=== PATIENT | male | born 1950 | race Caucasian/White ===

== ENCOUNTER 2020-12-25 16:16 | Inpatient (IN) | payer OTHER, SELFPAY ==
[2020-12-25 16:25] VITALS: BP 163/55; PULSE 62; RESP 16; TEMP 36.6; O2SAT 97
--- NOTE | 2020-12-25 17:06 | ED.GENADUL_ITS ---
Discharge Plan Disposition Patient Disposition: [facility] INPATIENT Condition: Stable Discharge Details Clinical Impression: Acute cholecystitis Primary Care Provider: Chad Sotelo ED Provider: Oj Burr Vernalis Meds and New Rx's Prescriptions: No Action albuterol sulfate 8.5 GM HFA aerosol inhaler 2 puff Inhalation Q4H PRN PRNRF: 0 multivitamin [Daily Multi-Vitamin] 1 EACH tablet 1 tab PO DAILY RF: 0 diltiazem HCl 300 MG capsule,extended release 24 hr 420 mg PO DAILY RF: 0 ascorbic acid (vitamin C) [Vitamin C] 500 MG tablet 500 mg PO DAILY RF: 0 vitamin B complex [Vitamin B-100 Complex] 1 EACH tablet 1 tab PO DAILY RF: 0 losartan 100 MG tablet 100 mg PO DAILY RF: 0 aspirin [Aspir-81] 81 MG tablet,delayed release (DR/EC) 81 mg PO DAILY RF: 0 chlorthalidone 50 mg tablet 25 mg PO DAILY RF: 0 amiloride 5 mg tablet 5 mg PO DAILY RF: 0 doxazosin 8 mg tablet 8 mg PO .QHS RF: 0 PreserVision AREDS-2 250-90-40-1 mg Capsule 1 tab PO DAILY RF: 0 Cacium Magnesium Zinc W/D3 1 tab PO DAILY RF: 0 Super Beta Prostate Advanced 1 tab PO DAILY RF: 0 Super Fruits And Veggies 1 tab PO DAILY RF: 0 Medical Decision Making <Mary Vazquez NP - Last Filed: 12/25/20 23:16> Medical Records Medical records reviewed: Yes I reviewed the patient's medical records. Imaging Data Radiologic Study: Imaging: X-Ray Radiologist's impression: PROCEDURE INFORMATION: Exam: XR Complete Acute Abdomen Series Including Chest Exam date and time: 12/25/2020 5:06 PM Age: 70 years old Clinical indication: Abdominal pain TECHNIQUE: Imaging protocol: XR complete acute abdomen series, including 2 or more views of the abdomen and a single view chest. COMPARISON: CR CHEST 2 VIEWS PA,LAT 08/09/2017 3:41 PM FINDINGS: Tubes, catheters and devices: Stent graft noted. Lungs: Normal. No consolidation. Pleural spaces: Normal. No pleural effusions. No pneumothorax. Heart/Mediastinum: Normal. No cardiomegaly. Gastrointestinal tract: Normal. No bowel dilation. Intraperitoneal space: Normal. No free air. Bones/joints: Normal. No acute fracture. Soft tissues: Normal. IMPRESSION: No acute disease Dictated and Authenticated by: Julito Giron MD. Ordering:ROBERT Hernandez MD Lab Data Lab results reviewed: Yes I reviewed the patient's lab results. Lab results narrative: Laboratory Tests Range/Units 12/25/20 12/25/20 12/25/20 17:14 17:14 17:14 WBC (4.4-10.8) 10^3/uL 15.26 H RBC (4.36-5.78) 10^6/uL 4.73 Hgb (13.5-17.5) g/dL 14.6 Hct (40.0-50.0) % 43.8 MCV (80-95) fL 92.6 MCH (27.0-33.0) pg 30.9 MCHC (32.0-36.0) % 33.3 RDW (11.8-14.1) % 13.7 Plt Count (130-400) 10^3/uL 215 MPV (8.0-11.0) fL 9.0 Immature Gran % 0.5 Neutrophils % 90.0 Lymphocytes % 3.2 Monocytes % 5.8 Eosinophils % 0.2 Basophils % 0.3 Nucleated RBC % % 0 Absolute Neutrophils (1.2-6.7) 10^3/uL 13.73 H Absolute Lymphocytes (1.2-3.4) 10^3/uL 0.49 L Absolute Monocytes (0.1-0.8) 10^3/uL 0.89 H Absolute Eosinophils (0.0-0.7) 10^3/uL 0.03 Absolute Basophils (0.0-0.2) 10^3/uL 0.05 VBG Lactate (0.6-1.4) mmol/L 2.9 H* Sodium (136-145) mmol/L 136 Potassium (3.5-5.1) mmol/L 3.8 Chloride (98-107) mmol/L 98 Carbon Dioxide (21.0-32.0) mmol/L 25.5 Anion Gap (3-11) mmol/L 12.5 H BUN (7-18) mg/dL 22 H Creatinine (0.70-1.30) mg/dL 1.5 H Estimated GFR/1.73 m2 (mL/min/1.73m2) 46.13 Glucose (74-106) mg/dL 182 H Calcium (8.5-10.1) mg/dL 9.5 Magnesium (1.8-2.4) mg/dL 2.0 Total Bilirubin (0.2-1.0) mg/dL 1.0 AST (15-37) U/L 196 H ALT (16-63) U/L 161 H Alkaline Phosphatase (46-116) U/L 127 H Total Protein (6.4-8.2) g/dL 7.0 Albumin (3.4-5.0) g/dL 3.8 Lipase (73-393) U/L 62 Urine Color (Yellow) Urine Clarity (Clear) Urine pH (5-8) Ur Specific [place] (1.005-1.025) Urine Protein (Negative) mg/dL Urine Ketones (Negative) mg/dL Urine Blood (Negative) Urine Nitrite (Negative) Urine Bilirubin (Negative) Urine Urobilinogen (Up TO 0.2) EU/dL Ur Leukocyte Esterase (Negative) Urine Glucose (Negative) mg/dL Range/Units 12/25/20 20:35 WBC (4.4-10.8) 10^3/uL RBC (4.36-5.78) 10^6/uL Hgb (13.5-17.5) g/dL Hct (40.0-50.0) % MCV (80-95) fL MCH (27.0-33.0) pg MCHC (32.0-36.0) % RDW (11.8-14.1) % Plt Count (130-400) 10^3/uL MPV (8.0-11.0) fL Immature Gran % Neutrophils % Lymphocytes % Monocytes % Eosinophils % Basophils % Nucleated RBC % % Absolute Neutrophils (1.2-6.7) 10^3/uL Absolute Lymphocytes (1.2-3.4) 10^3/uL Absolute Monocytes (0.1-0.8) 10^3/uL Absolute Eosinophils (0.0-0.7) 10^3/uL Absolute Basophils (0.0-0.2) 10^3/uL VBG Lactate (0.6-1.4) mmol/L Sodium (136-145) mmol/L Potassium (3.5-5.1) mmol/L Chloride (98-107) mmol/L Carbon Dioxide (21.0-32.0) mmol/L Anion Gap (3-11) mmol/L BUN (7-18) mg/dL Creatinine (0.70-1.30) mg/dL Estimated GFR/1.73 m2 (mL/min/1.73m2) Glucose (74-106) mg/dL Calcium (8.5-10.1) mg/dL Magnesium (1.8-2.4) mg/dL Total Bilirubin (0.2-1.0) mg/dL AST (15-37) U/L ALT (16-63) U/L Alkaline Phosphatase (46-116) U/L Total Protein (6.4-8.2) g/dL Albumin (3.4-5.0) g/dL Lipase (73-393) U/L Urine Color (Yellow) Yellow Urine Clarity (Clear) Clear Urine pH (5-8) 7.0 Ur Specific [place] (1.005-1.025) 1.025 Urine Protein (Negative) mg/dL Negative Urine Ketones (Negative) mg/dL Negative Urine Blood (Negative) Negative Urine Nitrite (Negative) Negative Urine Bilirubin (Negative) Negative Urine Urobilinogen (Up TO 0.2) EU/dL 1.0 H Ur Leukocyte Esterase (Negative) Negative Urine Glucose (Negative) mg/dL Negative <Oj Burr MD - Last Filed: 12/26/20 00:24> Patient signed out to me pending callback from surgery. Patient had presented with abdominal pain and is found to have elevated white count as well as elevated LFTs in addition to evidence of acute cholecystitis on CT scan. He has remained hemodynamically stable and continues on fluid. He has had 1 dose of pain medication. He has been covered with IV Zosyn. I have been able to discuss the case with Dr. Peacock. Patient to be admitted to surgical service for further management. Lab Data Lab results reviewed: Yes I reviewed the patient's lab results. HPI <Mary Vazquez NP - Last Filed: 12/25/20 23:16> General Mode of arrival: ambulatory . Date/Time Provider Initiated Documentation: 12/25/20 17:00 . Limitations to Documentation: no limitations . Information obtained by: patient . HPI Narrative: onset today of right upper quad pain with abdominal distention. denies fever but reports some chills. has had symptoms in the past but not as severe that has gone away but today persists Related Data Home Medications Medication Instructions Recorded Confirmed albuterol sulfate 2 puff INHALATION Q4H PRN PRN 07/31/13 12/25/20 ascorbic acid (vitamin C) [Vitamin 500 mg PO DAILY 07/31/13 12/25/20 C] aspirin [Aspir 81] 81 mg PO DAILY 07/31/13 12/25/20 diltiazem HCl 420 mg PO DAILY 07/31/13 12/25/20 losartan 100 mg PO DAILY 07/31/13 12/25/20 multivitamin [Multi Vitamin Daily] 1 tab PO DAILY 07/31/13 12/25/20 vitamin B complex [Vitamin B-100 1 tab PO DAILY 07/31/13 12/25/20 Complex] Cacium Magnesium Zinc W/D3 1 tab PO DAILY 12/25/20 Super Beta Prostate Advanced 1 tab PO DAILY 12/25/20 Super Fruits And Veggies 1 tab PO DAILY 12/25/20 amiloride 5 mg PO DAILY 12/25/20 12/25/20 chlorthalidone 25 mg PO DAILY 12/25/20 12/25/20 doxazosin 8 mg PO .QHS 12/25/20 12/25/20 vit C,X-Sv-hwafe-lutein-zeaxan 1 tab PO DAILY 12/25/20 12/25/20 [PreserVision AREDS-2] Allergies Allergy/AdvReac Type Severity Reaction Status Date / Time No Known Allergies Allergy Unverified 12/25/20 16:34 General Stated Complaint: Abd Prob BARBARA: 3 Review of Systems <Mary Vazquez NP - Last Filed: 12/25/20 23:16> All systems reviewed & are unremarkable except as noted in HPI and below ENT Ears, Nose, Mouth, and Throat: Denies odynophagia Gastrointestinal Gastrointestinal: Reports abdominal pain, Denies melena, Reports bloating, Denies constipation, Denies heartburn, Denies diarrhea, Denies nausea, Denies odynophagia and Denies vomiting Genitourinary Genitourinary: Denies difficulty urinating PFSH <Mary Vazquez NP - Last Filed: 12/25/20 23:16> Social History Smoking/Tobacco Use Status: Former Tobacco Use Smoking risk assessment performed?: Yes Alcohol Intake: current Alcohol Intake frequency: 0-2 drinks per day Drug use: Daily Substance use type: marijuana Exam <Mary Vazquez NP - Last Filed: 12/25/20 23:16> Const General: cooperative and in distress moderate Nutritional Appearance: average body habitus Orientation: alert, awake and oriented x3 Chest Chest: normal inspection of the chest Resp Effort & Inspection: normal respiratory effort Auscultation: clear to auscultation bilaterally Cardio Rate: regular rate Rhythm: regular rhythm GI Inspection: distended Palpation: soft, no guarding and tender in the epigastrum and in the RUQ Skin General skin exam: no rashes or lesions noted Neuro General: patient alert, patient awake and patient oriented x3 Extrem General: normal to inspection and full ROM Course <Mary Vazquez NP - Last Filed: 12/25/20 23:16> Vital Signs Vital signs: Vital Signs Temperature 36.6 C 12/25/20 16:25 Pulse 62 12/25/20 16:25 Respiratory Rate 16 12/25/20 16:25 Blood Pressure 163/55 H 12/25/20 16:25 Pulse Oximetry 97 12/25/20 16:25 Temperature 36.6 C 12/25/20 16:25 Temperature Source Tympanic 12/25/20 16:25 Pulse 62 12/25/20 16:25 Respiratory Rate 16 12/25/20 16:25 Respiratory Effort Non-Labored 12/25/20 16:25 Blood Pressure 163/55 H 12/25/20 16:25 Blood Pressure Position Sitting 12/25/20 16:25 Pulse Oximetry 97 12/25/20 16:25 Oxygen Delivery Method Room Air 12/25/20 16:25 Oxygen Flow Rate 0 12/25/20 16:25 Pain Level 7 12/25/20 16:25 Sign Out <Mary Vazquez NP - Last Filed: 12/25/20 23:16> Sign Out Data: Sign Out Comment: awaiting surgeon call back for admission for acute cholecysitis Last updated by Mary Vazquez NP at 12/25/20 23:18
[2020-12-25 17:19] LABS: Abs Immature Grans 0.07 10^3/uL (0.0-0.06); Absolute Basophil Count 0.05 10^3/uL (0.0-0.2); Absolute Eosinophil Count 0.03 10^3/uL (0.0-0.7); Absolute Lymphocyte Count 0.49 10^3/uL (1.2-3.4); Basophils % 0.3; Eosinophils % 0.2; HCT 43.8 % (40.0-50.0); HGB 14.6 g/dL (13.5-17.5); Immature Grans % 0.5; Lymphocytes % 3.2; MCH 30.9 pg (27.0-33.0); MCHC 33.3 % (32.0-36.0); MCV 92.6 fL (80-95); Monocytes % 5.8; Nucleated RBC 0 %; Platelet Count 215 10^3/uL (130-400); RBC 4.73 10^6/uL (4.36-5.78); RDW 13.7 % (11.8-14.1); RDW-SD 47.2 fL; WBC 15.26 10^3/uL (4.4-10.8)
[2020-12-25] MEDS: ACETAMINOPHEN 1,000 MG/100 ML BTL 400 MG IVPB (17:19)
[2020-12-25] MEDS: Normal Saline 1,000 ML 1000 ML IV (17:19)
[2020-12-25 17:20] LABS: Absolute Monocyte Count 0.89 10^3/uL (0.1-0.8); Absolute Neutrophil Count 13.73 10^3/uL (1.2-6.7)
[2020-12-25 17:23] LABS: Lactate 2.9 mmol/L (0.6-1.4)
--- NOTE | 2020-12-25 17:54 | DI.RAD_ITS ---
Exam(s) XR ABD FLAT UPRIGHT PA CHEST CLINICAL HISTORY: abdominal pain. COMPARISON: CR CHEST 2 VIEWS PA,LAT from 08/09/2017 FINDINGS: LUNGS: Clear. No pleural abnormality seen. HEART: Normal. There is tortuosity of the thoracic aorta. Atherosclerosis. MEDIASTINUM: Normal. BOWEL GAS PATTERN: Nondistended bowel loops. No air-fluid levels seen. ABNORMAL COLLECTIONS OF AIR: No abnormal collection of air. No pneumoperitoneum. CALCIFICATIONS: Atherosclerosis. No radiopaque renal, ureteral, or bladder calcification. OTHER FINDINGS: There is an aorto bi-iliac stent graft within a distal abdominal aortic aneurysm. IMPRESSION: 1. Nonobstructive bowel gas pattern. 2. No acute pulmonary findings.
[2020-12-25 17:59] LABS: ALT 161 U/L (16-63); AST 196 U/L (15-37); Albumin 3.8 g/dL (3.4-5.0); Alkaline Phosphatase 127 U/L (46-116); Anion Gap 12.5 mmol/L (3-11); BUN 22 mg/dL (7-18); CO2 25.5 mmol/L (21.0-32.0); CREATININE 1.5 mg/dL (0.70-1.30); Calcium 9.5 mg/dL (8.5-10.1); Chloride 98 mmol/L (98-107); Estimated GFR 46.13 (mL/min/1.73m2); Glucose 182 mg/dL (74-106); Potassium 3.8 mmol/L (3.5-5.1); Sodium 136 mmol/L (136-145)
--- NOTE | 2020-12-25 18:18 | DI.VRAD_ITS ---
PROCEDURE INFORMATION: Exam: XR Complete Acute Abdomen Series Including Chest Exam date and time: 12/25/2020 5:06 PM Age: 70 years old Clinical indication: Abdominal pain TECHNIQUE: Imaging protocol: XR complete acute abdomen series, including 2 or more views of the abdomen and a single view chest. COMPARISON: CR CHEST 2 VIEWS PA,LAT 08/09/2017 3:41 PM FINDINGS: Tubes, catheters and devices: Stent graft noted. Lungs: Normal. No consolidation. Pleural spaces: Normal. No pleural effusions. No pneumothorax. Heart/Mediastinum: Normal. No cardiomegaly. Gastrointestinal tract: Normal. No bowel dilation. Intraperitoneal space: Normal. No free air. Bones/joints: Normal. No acute fracture. Soft tissues: Normal. IMPRESSION: No acute disease Dictated and Authenticated by: Julito Giron MD. Ordering:ROBERT Hernandez MD
[2020-12-25 18:34] LABS: Lipase 62 U/L (73-393)
[2020-12-25 18:41] VITALS: BP 175/78; PULSE 62; RESP 16; TEMP 37.3; O2SAT 96
--- NOTE | 2020-12-25 19:10 | DI.CT_ITS ---
Exam(s) CT ABDOMEN PELVIS WO EXAM: CT ABDOMEN PELVIS WO CLINICAL HISTORY: abdominal pain and distention. TECHNIQUE: Imaging Protocol: Axial computed tomography images with coronal and sagittal reformatted images were created and reviewed. COMPARISON: US ABDOMEN ULTRASOUND (P) from 02/15/2013 US ABDOMEN ULTRASOUND (P) from 02/15/2013 FINDINGS: ABDOMEN: Lung Bases: Emphysematous changes are seen in the lung bases. There is scarring in the lingula. Liver: Normal density. No measurable mass. Gallbladder and biliary tract: Cholelithiasis. There is dilatation of the extrahepatic bile duct. H yperdense material seen layering in the common bile duct. This may represent choledocholithiasis. T he gallbladder measures 4.8 cm in diameter. There also appears to be mild gallbladder wall thickening . Pancreas: Normal density, no abnormal calcifications or inflammatory process. Spleen: Normal. Kidneys: Left renal atrophy.There are calcifications in the heraclio which may represent nonobstructing s tones or vascular calcifications. There is a 2.3 cm hypodense lesion in the superior medial aspect o f the right kidney. It is incompletely imaged on this noncontrast examination. Follow-up ultrasound or contrast CT scan should be considered. Adrenal glands: There is a 1.8 cm hypodense left adrenal nodule. The right adrenal gland is unremark able. Lymph nodes: Within normal limits. Abdominal Aorta: There is an aorto bi-iliac stent graft within a [place] 5.5 cm infrarenal abdominal a ortic aneurysm. PELVIS: Bladder:Symmetric distention, no gross wall thickening. Bowel: No obstruction or bowel wall thickening. Appendix is unremarkable. There is diverticulosis of the colon but no evidence of acute diverticulitis. Peritoneal cavity: No ascites, collection or mesenteric inflammatory response. No free air. Reproductive organs: There is an enlarged prostate gland. Bones: Within normal limits. There is grade 1 pseudo spondylolisthesis of L4 on L5 and mild retrolist hesis of L5 on S1. Soft Tissues: Within normal limits. IMPRESSION: Findings suspicious for acute cholecystitis. Incidental Findings RADIATION DOSE DELIVERED: 790.48mGy.cm Total DLP DATA REPOSITORY: All CT scans at this facility are submitted to the National Radiology Data Registry (NRDR) Dose Index Registry (DIR) with the [employer] (ACR). RADIATION OPTIMIZATION: All CT scans at this facility use at least one of these dose optimization te chniques: automated exposure control; mA and/or kV adjustment per patient size (includes targeted exa ms where dose is matched to clinical indication); or iterative reconstruction.
--- NOTE | 2020-12-25 19:18 | DI.VRAD_ITS ---
PROCEDURE INFORMATION: Exam: CT Abdomen And Pelvis Without Contrast Exam date and time: 12/25/2020 6:29 PM Age: 70 years old Clinical indication: Other: Abdominal pain and distention TECHNIQUE: Imaging protocol: Computed tomography of the abdomen and pelvis without contrast. Radiation optimization: All CT scans at this facility use at least one of these dose optimization techniques: automated exposure control; mA and/or kV adjustment per patient size (includes targeted exams where dose is matched to clinical indication); or iterative reconstruction. COMPARISON: CR XR ABD FLAT UPRIGHT PA CHEST 12/25/2020 5:41 PM FINDINGS: Lungs: Mild atelectasis. Liver: Normal. No mass. Gallbladder and bile ducts: Gallbladder contains multiple stones. Mild gallbladder dilatation. Mild pericholecystic stranding. Mild gallbladder wall thickening suspected. Pancreas: Normal. No ductal dilation. Spleen: Normal. No splenomegaly. Adrenal glands: A low-density left adrenal nodule is seen compatible with a lipid rich adenoma. Kidneys and ureters: Bilateral renal hypodensities cannot be further characterized on this study. Calcifications in the bilateral kidneys are favored to be vascular. No hydronephrosis. Stomach and bowel: Sigmoid diverticulosis noted. Appendix: No evidence of appendicitis. Intraperitoneal space: Unremarkable. No free air. No significant fluid collection. Vasculature: Coronary artery calcifications. Aortic stent graft noted. Sac diameter is about 55 mm. Correlation with priors recommended. Lymph nodes: Unremarkable. No enlarged lymph nodes. Urinary bladder: Unremarkable as visualized. Reproductive: Mild prostatic enlargement. Bones/joints: Unremarkable. No acute fracture. Soft tissues: Unremarkable. IMPRESSION: Findings concerning for acute cholecystitis. Clinical correlation recommended. Ultrasound offered for diagnostic dilemma. Dictated and Authenticated by: Julito Giron MD. Ordering:ROBERT Hernandez MD
[2020-12-25 19:30] VITALS: PULSE 68; RESP 24; RESP 8; O2SAT 98
[2020-12-25] MEDS: Albuterol 2.5 MG/3 ML INH SOLN VIAL UPD (19:30)
[2020-12-25] MEDS: HYDROmorphone 2 MG/ML VIAL (20:29)
[2020-12-25] MEDS: Ondansetron 4 MG/2 ML VIAL IVP (20:30)
[2020-12-25] MEDS: PIPERACILLIN/TAZO 3.375 GM in Normal Saline 50 ML IVPB (20:30)
[2020-12-25 20:45] LABS: Bilirubin Negative (Negative); Blood Negative (Negative); Clarity Clear (Clear); Glucose Negative (Negative); Ketones Negative (Negative); Leukocyte Esterase Negative (Negative); Nitrite Negative (Negative); Specific Gravity 1.025 (1.005-1.025)
[2020-12-26 00:12] VITALS: BP 124/62; PULSE 79; RESP 20; TEMP 36.3; O2SAT 94
[2020-12-26] MEDS: Lactated Ringers 1,000 ML 125 ML IV ×3 (00:37→22:25)
--- NOTE | 2020-12-26 00:40 | HPE_ITS ---
Assessment and Plan Assessment and plan (1) Cholelithiasis and acute cholecystitis without obstruction: Status: Acute (2) H/O endovascular stent graft for abdominal aortic aneurysm: Status: Acute (3) Enlarged prostate: Status: Acute (4) Atelectasis: Status: Acute (5) Diverticula of colon: Status: Acute (6) Adrenal adenoma: Status: Acute (7) Former smoker: Status: Acute (8) Daily consumption of alcohol: Status: Acute (9) Cannabis use, uncomplicated: Status: Acute (10) HTN (hypertension): Status: Chronic PFSH Social History Smoking/Tobacco Use Status: Former Tobacco Use Smoking risk assessment performed?: Yes Alcohol Intake: current Alcohol Intake frequency: 0-2 drinks per day Drug use: Daily Substance use type: marijuana Meds Allergies and Home Medications Allergies Allergy/AdvReac Type Severity Reaction Status Date / Time No Known Allergies Allergy Unverified 12/25/20 16:34 Home Medications Medication Instructions Recorded Confirmed Type albuterol sulfate 2 puff INHALATION Q4H PRN PRN 07/31/13 12/25/20 History ascorbic acid (vitamin C) [Vitamin 500 mg PO DAILY 07/31/13 12/25/20 History C] aspirin [Aspir 81] 81 mg PO DAILY 07/31/13 12/25/20 History diltiazem HCl 420 mg PO DAILY 07/31/13 12/25/20 History losartan 100 mg PO DAILY 07/31/13 12/25/20 History multivitamin [Multi Vitamin Daily] 1 tab PO DAILY 07/31/13 12/25/20 History vitamin B complex [Vitamin B-100 1 tab PO DAILY 07/31/13 12/25/20 History Complex] Cacium Magnesium Zinc W/D3 1 tab PO DAILY 12/25/20 History Super Beta Prostate Advanced 1 tab PO DAILY 12/25/20 History Super Fruits And Veggies 1 tab PO DAILY 12/25/20 History amiloride 5 mg PO DAILY 12/25/20 12/25/20 History chlorthalidone 25 mg PO DAILY 12/25/20 12/25/20 History doxazosin 8 mg PO .QHS 12/25/20 12/25/20 History vit C,W-Xm-owqop-lutein-zeaxan 1 tab PO DAILY 12/25/20 12/25/20 History [PreserVision AREDS-2] Results Labs Result diagrams: 12/25/20 17:14 12/25/20 17:14 Labs: Laboratory Results - last 24 hr 12/25/20 12/25/20 12/25/20 17:14 17:14 17:14 WBC 15.26 H RBC 4.73 Hgb 14.6 Hct 43.8 MCV 92.6 MCH 30.9 MCHC 33.3 RDW 13.7 Plt Count 215 MPV 9.0 Immature Gran % 0.5 Neutrophils % 90.0 Lymphocytes % 3.2 Monocytes % 5.8 Eosinophils % 0.2 Basophils % 0.3 Nucleated RBC % 0 Absolute Neutrophils 13.73 H Absolute Lymphocytes 0.49 L Absolute Monocytes 0.89 H Absolute Eosinophils 0.03 Absolute Basophils 0.05 VBG Lactate 2.9 H* Sodium 136 Potassium 3.8 Chloride 98 Carbon Dioxide 25.5 Anion Gap 12.5 H BUN 22 H Creatinine 1.5 H Estimated GFR/1.73 m2 46.13 Glucose 182 H Calcium 9.5 Magnesium 2.0 Total Bilirubin 1.0 AST 196 H ALT 161 H Alkaline Phosphatase 127 H Total Protein 7.0 Albumin 3.8 Lipase 62 Urine Color Urine Clarity Urine pH Ur Specific [place] Urine Protein Urine Ketones Urine Blood Urine Nitrite Urine Bilirubin Urine Urobilinogen Ur Leukocyte Esterase Urine Glucose 12/25/20 20:35 WBC RBC Hgb Hct MCV MCH MCHC RDW Plt Count MPV Immature Gran % Neutrophils % Lymphocytes % Monocytes % Eosinophils % Basophils % Nucleated RBC % Absolute Neutrophils Absolute Lymphocytes Absolute Monocytes Absolute Eosinophils Absolute Basophils VBG Lactate Sodium Potassium Chloride Carbon Dioxide Anion Gap BUN Creatinine Estimated GFR/1.73 m2 Glucose Calcium Magnesium Total Bilirubin AST ALT Alkaline Phosphatase Total Protein Albumin Lipase Urine Color Yellow Urine Clarity Clear Urine pH 7.0 Ur Specific [place] 1.025 Urine Protein Negative Urine Ketones Negative Urine Blood Negative Urine Nitrite Negative Urine Bilirubin Negative Urine Urobilinogen 1.0 H Ur Leukocyte Esterase Negative Urine Glucose Negative Last Vital Signs Temp 36.3 C L 12/26/20 00:12 Pulse 79 12/26/20 00:12 Resp 20 12/26/20 00:12 BP 124/62 12/26/20 00:12 Pulse Ox 94 12/26/20 00:12
[2020-12-26] MEDS: HYDROmorphone 2 MG/ML VIAL 0.5 MG IVP ×2 (00:49→10:50)
[2020-12-26 01:14] LABS: Source Nasal/Nares
[2020-12-26 01:35] VITALS: BP 169/72; PULSE 87; RESP 18; TEMP 36; O2SAT 95
[2020-12-26 02:06] LABS: COVID-19 PCR Negative (Negative)
[2020-12-26] MEDS: Pantoprazole 40 MG VIAL IVP (02:37)
[2020-12-26] MEDS: MORPHine 10 MG/ML VIAL 2 MG IV (02:37)
[2020-12-26] MEDS: Doxazosin 2 MG TAB 8 MG PO (02:38)
[2020-12-26] MEDS: ACETAMINOPHEN 1,000 MG/100 ML BTL 400 MG IVPB ×2 (02:39→10:21)
[2020-12-26] MEDS: PIPERACILLIN/TAZO 3.375 GM in Normal Saline 50 ML IVPB ×2 (04:59→20:19)
[2020-12-26] MEDS: Normal Saline 500 ML 30 ML IV ×2 (05:00→20:19)
[2020-12-26 06:56] LABS: Abs Immature Grans 0.06 10^3/uL (0.0-0.06); Absolute Basophil Count 0.05 10^3/uL (0.0-0.2); Absolute Lymphocyte Count 0.44 10^3/uL (1.2-3.4); Basophils % 0.3; Eosinophils % 0.1; HCT 39.4 % (40.0-50.0); Immature Grans % 0.3; Lymphocytes % 2.5; MCH 30.8 pg (27.0-33.0); MCV 93.4 fL (80-95); MPV 9.3 fL (8.0-11.0); Neutrophils % 92.8; Nucleated RBC 0 %; Platelet Count 199 10^3/uL (130-400); RBC 4.22 10^6/uL (4.36-5.78); RDW 14.2 % (11.8-14.1); RDW-SD 48.2 fL; WBC 17.41 10^3/uL (4.4-10.8)
[2020-12-26 06:58] LABS: Absolute Eosinophil Count 0.02 10^3/uL (0.0-0.7); Absolute Neutrophil Count 16.16 10^3/uL (1.2-6.7)
[2020-12-26 07:10] LABS: INR 1.1 (0.9-1.1); Prothrombin Time 11.2 sec (9.3-11.0)
[2020-12-26 07:25] VITALS: BP 151/73; PULSE 83; RESP 20; TEMP 36.3; O2SAT 96
[2020-12-26 07:30] LABS: ALT 911 U/L (16-63); AST 661 U/L (15-37); Albumin 3.1 g/dL (3.4-5.0); Alkaline Phosphatase 206 U/L (46-116); Anion Gap 6.8 mmol/L (3-11); BUN 24 mg/dL (7-18); Bilirubin, Total 4.1 mg/dL (0.2-1.0); CO2 25.2 mmol/L (21.0-32.0); CREATININE 1.8 mg/dL (0.70-1.30); Calcium 8.5 mg/dL (8.5-10.1); Chloride 104 mmol/L (98-107); Estimated GFR 37.38 (mL/min/1.73m2); Glucose 129 mg/dL (74-106); Lipase 44 U/L (73-393); Potassium 4.4 mmol/L (3.5-5.1); Sodium 136 mmol/L (136-145); Total Protein 5.4 g/dL (6.4-8.2)
--- NOTE | 2020-12-26 08:15 | HPE_ITS ---
Date of Service Date of service: 12/26/20 Time of Service: 08:13 HPI: Patient is a 70-year-old male with a past medical history significant for hypertension, previous AAA repair, hx of renal cell carcinoma status post partial left nephrectomy, and adrenal adenoma whocame to the emergency department complaining of right upper quadrant pain nausea and dry heaving. Patient states he did have one prior episode years ago. Due to persistent pain he came in for evaluation. Basic laboratory studies revealed evidence of mild leukocytosis and slightly elevated LFT?s with a normal bilirubin. He underwent a CAT scan of the abdomen and pelvis revealing evidence of acute calculous cholecystitis with a distended, inflamed and stone-filled gallbladder. He was started on IV antibiotics and admitted to the hospital for lap felix. This morning he has developed hyberbilirubinemia with a conjugated level of 3.8. He will need to undergo ERCP prior to cholecystectomy. Assessment and Plan Assessment and plan (1) Choledocholithiasis with acute cholecystitis with obstruction: Status: Acute Assessment and plan: Patient with acute direct hyperbilirubinemia today, needs ERCP prior to cholecystectomy -Transfer for down and back ERCP at [facility] today -2D echo pending -Plan for lap felix in AM if labs improve and no evidence of pancreatitis -Continue IV antibiotics and IVF, PRN analgesia as written -Continue home meds (2) HTN (hypertension): Status: Chronic Qualifiers: Hypertension type: unspecified Qualified Code(s): I10 - Essential (primary) hypertension (3) Cannabis use, uncomplicated: Status: Acute (4) Daily consumption of alcohol: Status: Acute (5) Adrenal adenoma: Status: Acute Qualifiers: Laterality: left Qualified Code(s): D35.02 - Benign neoplasm of left adrenal gland (6) H/O endovascular stent graft for abdominal aortic aneurysm: Status: Acute Subjective Subjective Patient reports: afebrile; denies shortness of breath Interval history since last seen: Patient reports improvement in pain, but still sore. Reports nausea and persistent dry heaving. Exam Const General: cooperative, comfortable and no acute distress Orientation: alert, awake and oriented x3 Eyes Conjunctivae: conjunctivae normal Sclera: sclerae normal Resp Effort & Inspection: normal respiratory effort and no audible wheezes Cardio Rate: regular rate Rhythm: regular rhythm GI Inspection: normal to inspection and obesity Palpation: soft and tender in the RUQ Percussion: normal to percussion Skin General skin exam: no rashes or lesions noted Objective Last Vital Signs Temp 97.3 F L 12/26/20 07:25 Pulse 83 12/26/20 07:25 Resp 20 12/26/20 07:25 BP 151/73 H 12/26/20 07:25 Pulse Ox 96 12/26/20 07:25 Laboratory Results - last 24 hr 12/25/20 12/25/20 12/25/20 17:14 17:14 17:14 WBC 15.26 H RBC 4.73 Hgb 14.6 Hct 43.8 MCV 92.6 MCH 30.9 MCHC 33.3 RDW 13.7 Plt Count 215 MPV 9.0 Immature Gran % 0.5 Neutrophils % 90.0 Lymphocytes % 3.2 Monocytes % 5.8 Eosinophils % 0.2 Basophils % 0.3 Nucleated RBC % 0 Absolute Neutrophils 13.73 H Absolute Lymphocytes 0.49 L Absolute Monocytes 0.89 H Absolute Eosinophils 0.03 Absolute Basophils 0.05 PT INR VBG Lactate 2.9 H* Sodium 136 Potassium 3.8 Chloride 98 Carbon Dioxide 25.5 Anion Gap 12.5 H BUN 22 H Creatinine 1.5 H Estimated GFR/1.73 m2 46.13 Glucose 182 H Calcium 9.5 Magnesium 2.0 Total Bilirubin 1.0 AST 196 H ALT 161 H Alkaline Phosphatase 127 H C-Reactive Protein Total Protein 7.0 Albumin 3.8 Lipase 62 Urine Color Urine Clarity Urine pH Ur Specific [place] Urine Protein Urine Ketones Urine Blood Urine Nitrite Urine Bilirubin Urine Urobilinogen Ur Leukocyte Esterase Urine Glucose COVID-19 Source SARS-CoV-2 (PCR) 12/25/20 12/25/20 12/26/20 17:14 20:35 00:42 WBC RBC Hgb Hct MCV MCH MCHC RDW Plt Count MPV Immature Gran % Neutrophils % Lymphocytes % Monocytes % Eosinophils % Basophils % Nucleated RBC % Absolute Neutrophils Absolute Lymphocytes Absolute Monocytes Absolute Eosinophils Absolute Basophils PT INR VBG Lactate Sodium Potassium Chloride Carbon Dioxide Anion Gap BUN Creatinine Estimated GFR/1.73 m2 Glucose Calcium Magnesium Total Bilirubin AST ALT Alkaline Phosphatase C-Reactive Protein 0.20 Total Protein Albumin Lipase Urine Color Yellow Urine Clarity Clear Urine pH 7.0 Ur Specific [place] 1.025 Urine Protein Negative Urine Ketones Negative Urine Blood Negative Urine Nitrite Negative Urine Bilirubin Negative Urine Urobilinogen 1.0 H Ur Leukocyte Esterase Negative Urine Glucose Negative COVID-19 Source Nasal/Nares SARS-CoV-2 (PCR) Negative 12/26/20 12/26/20 12/26/20 06:46 06:46 06:46 WBC 17.41 H RBC 4.22 L Hgb 13.0 L Hct 39.4 L MCV 93.4 MCH 30.8 MCHC 33.0 RDW 14.2 H Plt Count 199 MPV 9.3 Immature Gran % 0.3 Neutrophils % 92.8 Lymphocytes % 2.5 Monocytes % 4.0 Eosinophils % 0.1 Basophils % 0.3 Nucleated RBC % 0 Absolute Neutrophils 16.16 H Absolute Lymphocytes 0.44 L Absolute Monocytes 0.70 Absolute Eosinophils 0.02 Absolute Basophils 0.05 PT 11.2 H INR 1.1 VBG Lactate Sodium 136 Potassium 4.4 Chloride 104 Carbon Dioxide 25.2 Anion Gap 6.8 BUN 24 H Creatinine 1.8 H Estimated GFR/1.73 m2 37.38 Glucose 129 H Calcium 8.5 Magnesium Total Bilirubin 4.1 H AST 661 H ALT 911 H Alkaline Phosphatase 206 H C-Reactive Protein Total Protein 5.4 L Albumin 3.1 L Lipase 44 Urine Color Urine Clarity Urine pH Ur Specific [place] Urine Protein Urine Ketones Urine Blood Urine Nitrite Urine Bilirubin Urine Urobilinogen Ur Leukocyte Esterase Urine Glucose COVID-19 Source SARS-CoV-2 (PCR) cc: Dictated by: Jory Stover DO Dictated: 0 12/26/20Time: 818 <Electronically signed by Jory Stover DO> Date: 12/26/20 1319 Date: Date: Transcribed Date: 12/26/20 Transcribed Time: 818By: CUBA This is privileged, confidential information, intended only for the provider named. Any use or distribution by any person other than this provider is strictly prohibited. If you receive this report in error, please notify us immediately at [phone] and return the original report to us at the address above. Thank you.
--- NOTE | 2020-12-26 08:19 | PGE_ITS ---
Date of Service Date of service: 12/26/20 Time of Service: 08:13 Assessment and Plan Assessment and plan (1) Choledocholithiasis with acute cholecystitis with obstruction: Status: Acute Assessment and plan: Patient with acute direct hyperbilirubinemia today, needs ERCP prior to cholecystectomy -Transfer for down and back ERCP at [facility] today -2D echo pending -Plan for lap felix in AM if labs improve and no evidence of pancreatitis -Continue IV antibiotics and IVF, PRN analgesia as written -Continue home meds (2) HTN (hypertension): Status: Chronic Qualifiers: Hypertension type: unspecified Qualified Code(s): I10 - Essential (primary) hypertension (3) Cannabis use, uncomplicated: Status: Acute (4) Daily consumption of alcohol: Status: Acute (5) Adrenal adenoma: Status: Acute Qualifiers: Laterality: left Qualified Code(s): D35.02 - Benign neoplasm of left adrenal gland (6) H/O endovascular stent graft for abdominal aortic aneurysm: Status: Acute Subjective Subjective Patient reports: afebrile; denies shortness of breath Interval history since last seen: Patient reports improvement in pain, but still sore. Reports nausea and persistent dry heaving. Exam Const General: cooperative, comfortable and no acute distress Orientation: alert, awake and oriented x3 Eyes Conjunctivae: conjunctivae normal Sclera: sclerae normal Resp Effort & Inspection: normal respiratory effort and no audible wheezes Cardio Rate: regular rate Rhythm: regular rhythm GI Inspection: normal to inspection and obesity Palpation: soft and tender in the RUQ Percussion: normal to percussion Skin General skin exam: no rashes or lesions noted Objective Last Vital Signs Temp 97.3 F L 12/26/20 07:25 Pulse 83 12/26/20 07:25 Resp 20 12/26/20 07:25 BP 151/73 H 12/26/20 07:25 Pulse Ox 96 12/26/20 07:25 Laboratory Results - last 24 hr 12/25/20 12/25/20 12/25/20 17:14 17:14 17:14 WBC 15.26 H RBC 4.73 Hgb 14.6 Hct 43.8 MCV 92.6 MCH 30.9 MCHC 33.3 RDW 13.7 Plt Count 215 MPV 9.0 Immature Gran % 0.5 Neutrophils % 90.0 Lymphocytes % 3.2 Monocytes % 5.8 Eosinophils % 0.2 Basophils % 0.3 Nucleated RBC % 0 Absolute Neutrophils 13.73 H Absolute Lymphocytes 0.49 L Absolute Monocytes 0.89 H Absolute Eosinophils 0.03 Absolute Basophils 0.05 PT INR VBG Lactate 2.9 H* Sodium 136 Potassium 3.8 Chloride 98 Carbon Dioxide 25.5 Anion Gap 12.5 H BUN 22 H Creatinine 1.5 H Estimated GFR/1.73 m2 46.13 Glucose 182 H Calcium 9.5 Magnesium 2.0 Total Bilirubin 1.0 AST 196 H ALT 161 H Alkaline Phosphatase 127 H C-Reactive Protein Total Protein 7.0 Albumin 3.8 Lipase 62 Urine Color Urine Clarity Urine pH Ur Specific [place] Urine Protein Urine Ketones Urine Blood Urine Nitrite Urine Bilirubin Urine Urobilinogen Ur Leukocyte Esterase Urine Glucose COVID-19 Source SARS-CoV-2 (PCR) 12/25/20 12/25/20 12/26/20 17:14 20:35 00:42 WBC RBC Hgb Hct MCV MCH MCHC RDW Plt Count MPV Immature Gran % Neutrophils % Lymphocytes % Monocytes % Eosinophils % Basophils % Nucleated RBC % Absolute Neutrophils Absolute Lymphocytes Absolute Monocytes Absolute Eosinophils Absolute Basophils PT INR VBG Lactate Sodium Potassium Chloride Carbon Dioxide Anion Gap BUN Creatinine Estimated GFR/1.73 m2 Glucose Calcium Magnesium Total Bilirubin AST ALT Alkaline Phosphatase C-Reactive Protein 0.20 Total Protein Albumin Lipase Urine Color Yellow Urine Clarity Clear Urine pH 7.0 Ur Specific [place] 1.025 Urine Protein Negative Urine Ketones Negative Urine Blood Negative Urine Nitrite Negative Urine Bilirubin Negative Urine Urobilinogen 1.0 H Ur Leukocyte Esterase Negative Urine Glucose Negative COVID-19 Source Nasal/Nares SARS-CoV-2 (PCR) Negative 12/26/20 12/26/20 12/26/20 06:46 06:46 06:46 WBC 17.41 H RBC 4.22 L Hgb 13.0 L Hct 39.4 L MCV 93.4 MCH 30.8 MCHC 33.0 RDW 14.2 H Plt Count 199 MPV 9.3 Immature Gran % 0.3 Neutrophils % 92.8 Lymphocytes % 2.5 Monocytes % 4.0 Eosinophils % 0.1 Basophils % 0.3 Nucleated RBC % 0 Absolute Neutrophils 16.16 H Absolute Lymphocytes 0.44 L Absolute Monocytes 0.70 Absolute Eosinophils 0.02 Absolute Basophils 0.05 PT 11.2 H INR 1.1 VBG Lactate Sodium 136 Potassium 4.4 Chloride 104 Carbon Dioxide 25.2 Anion Gap 6.8 BUN 24 H Creatinine 1.8 H Estimated GFR/1.73 m2 37.38 Glucose 129 H Calcium 8.5 Magnesium Total Bilirubin 4.1 H AST 661 H ALT 911 H Alkaline Phosphatase 206 H C-Reactive Protein Total Protein 5.4 L Albumin 3.1 L Lipase 44 Urine Color Urine Clarity Urine pH Ur Specific [place] Urine Protein Urine Ketones Urine Blood Urine Nitrite Urine Bilirubin Urine Urobilinogen Ur Leukocyte Esterase Urine Glucose COVID-19 Source SARS-CoV-2 (PCR)
[2020-12-26 08:29] LABS: Bilirubin, Direct 3.8 mg/dL (0.0-0.2)
[2020-12-26] MEDS: aMILoride HCL 5 MG TAB PO (08:37)
[2020-12-26] MEDS: dilTIAZem CD 180 MG CAPCR PO (08:37)
[2020-12-26] MEDS: dilTIAZem CD 120 MG CAPCR 240 MG PO (08:37)
[2020-12-26] MEDS: Normal Saline Flush 10 ML SYR IVP ×2 (08:37→10:50)
[2020-12-26] MEDS: Losartan 50 MG TAB 100 MG PO (08:37)
--- NOTE | 2020-12-26 08:56 | INITIAL_ITS ---
- If Service Date Differs Date of service: 12/26/20 Time of Service: 08:56 Care Management Initial Assess REASON FOR HOSPITALIZATION:: Acute Cholecystitis PAST MEDICAL HISTORY/PAST SURGICAL HISTORY:: Benign neoplasm of left adrenal gland, H/O endovascular stent graft for abdominal aortic aneurysm, Depression. Hypertension. Spinal stenosis. Renal cancer, 2012. Past history of nosebleeds. Retinal detachment. Partial renal resection. Back surgery. R etinal surgery, May 2014. He has chronic back pain.Adrenal adenoma: CURRENT FUNCTIONAL STATUS:: CM was unable to meet with patient. Hannah was transported [place] [facility] [place] down and back appointment for an ERCP, CM will continue to monitor. ADVANCE DIRECTIVES:: None on file Has patient been provided with info about the portal/API?: Yes Did the patient sign up for the portal?: No CODE STATUS:: Full Code INSURANCE COVERAGE / FINANCIAL ISSUES:: [facility] PRIMARY CARE PHYSICIAN:: Dr. Chad Sotelo POTENTIAL DISCHARGE NEEDS:: CM continues to support PATIENT/FAMILY EDUCATION NEEDS:: Review of discharge instructions and plans for follow up with outpatient providers, ask me three TRANSPORTATION:: TBD by disposition. PLAN:: To complete assessment when patient is available.
--- NOTE | 2020-12-26 15:31 | NUR.NOTE ---
Nursing Note: 12/26/20 15:31 [id number] handoff given to radiology tech at [facility] for patient's transfer for [id number] procedure.
--- NOTE | 2020-12-26 16:05 | NUR.NOTE ---
Nursing Note: 12/26/20 14:05 Reanna RN, [place] [facility] [place] called and informed this RN that the patient will be admitted [place] [facility] [place] and will not be returning to [facility].
--- NOTE | 2020-12-26 17:05 | NUR.NOTE ---
Nursing Note: 12/26/20 17:05 Reanna RN, from [facility] [place]ology called again and reported that the patient will be transferred back to [facility] and is not being admitted at [facility]. Reanna reported they sent [place] away thinking the patient would be admitted at [facility], and the patient now needs new transport set up to return to [facility]. Charge nurse, Gila, notified. Reanna is in radiology at [phone].
[2020-12-26 20:30] VITALS: BP 122/68; PULSE 86; RESP 16; TEMP 36.1; O2SAT 96
--- NOTE | 2020-12-26 23:00 | NUR.NOTE ---
Patient returned from [facility] with EMS after having ERCP done. He is conscious, alert and oriented x 3. Denies having any pain or discomfort. Vitals signs done and charted. Continual assessment done through shift
[2020-12-26 23:45] VITALS: BP 122/70; PULSE 90; RESP 16; TEMP 36.8; O2SAT 92
[2020-12-27] MEDS: Pantoprazole 40 MG VIAL IVP (02:06)
[2020-12-27] MEDS: Normal Saline Flush 10 ML SYR IVP ×5 (02:07→21:41)
[2020-12-27] MEDS: ACETAMINOPHEN 1,000 MG/100 ML BTL 400 MG IVPB ×3 (02:07→17:38)
[2020-12-27] MEDS: PIPERACILLIN/TAZO 3.375 GM in Normal Saline 50 ML IVPB ×3 (04:45→21:40)
[2020-12-27] MEDS: Albuterol HFA 8 GM 60 PUFF INH IH (05:00)
[2020-12-27] MEDS: Lactated Ringers 1,000 ML 125 ML IV ×2 (07:11→15:23)
[2020-12-27 07:15] LABS: Abs Immature Grans 0.06 10^3/uL (0.0-0.06); Absolute Basophil Count 0.02 10^3/uL (0.0-0.2); Absolute Eosinophil Count 0.01 10^3/uL (0.0-0.7); Absolute Monocyte Count 0.46 10^3/uL (0.1-0.8); Basophils % 0.2; Eosinophils % 0.1; HCT 37.8 % (40.0-50.0); HGB 12.6 g/dL (13.5-17.5); Immature Grans % 0.5; Lymphocytes % 2.7; MCH 30.5 pg (27.0-33.0); MCHC 33.3 % (32.0-36.0); MCV 91.5 fL (80-95); MPV 10.1 fL (8.0-11.0); Monocytes % 4.2; Neutrophils % 92.3; Nucleated RBC 0 %; Platelet Count 166 10^3/uL (130-400); RBC 4.13 10^6/uL (4.36-5.78); RDW 14.7 % (11.8-14.1); RDW-SD 49.9 fL; WBC 11.05 10^3/uL (4.4-10.8)
[2020-12-27 07:26] LABS: INR 1.4 (0.9-1.1); Prothrombin Time 13.8 sec (9.3-11.0)
[2020-12-27 07:32] VITALS: BP 177/71; PULSE 104; RESP 18; TEMP 37.4; O2SAT 96
[2020-12-27 07:35] LABS: ALT 587 U/L (16-63); AST 215 U/L (15-37); Albumin 2.7 g/dL (3.4-5.0); Alkaline Phosphatase 171 U/L (46-116); Anion Gap 10.4 mmol/L (3-11); BUN 28 mg/dL (7-18); Bilirubin, Direct 1.5 mg/dL (0.0-0.2); Bilirubin, Total 1.9 mg/dL (0.2-1.0); CO2 24.6 mmol/L (21.0-32.0); CREATININE 1.6 mg/dL (0.70-1.30); Calcium 8.5 mg/dL (8.5-10.1); Chloride 102 mmol/L (98-107); Estimated GFR 42.82 (mL/min/1.73m2); Glucose 104 mg/dL (74-106); Lipase 31 U/L (73-393); Magnesium 1.8 mg/dL (1.8-2.4); Potassium 3.7 mmol/L (3.5-5.1); Sodium 137 mmol/L (136-145); Total Protein 5.8 g/dL (6.4-8.2)
[2020-12-27] MEDS: dilTIAZem CD 120 MG CAPCR 240 MG PO (08:14)
[2020-12-27] MEDS: dilTIAZem CD 180 MG CAPCR PO (08:15)
[2020-12-27] MEDS: aMILoride HCL 5 MG TAB PO (08:15)
[2020-12-27] MEDS: Losartan 50 MG TAB 100 MG PO (08:15)
--- NOTE | 2020-12-27 11:56 | PGE_ITS ---
Date of Service Date of service: 12/27/20 Time of Service: 08:56 Assessment and Plan Assessment and plan (1) Choledocholithiasis with acute cholecystitis with obstruction: Status: Acute Assessment and plan: PPD#1 s.p ERCP at [facility] [place] -Patient had complicated post ERCP course yesterday at [facility] requiring emergent re-intubation, pulmonology evaluation with bronchoscopy, CPAP and extended monitoring in the ICU -He was sent back to [facility] without any of this information being relayed and lap felix was planned for today -Due to the above events and his significant risk for complications beyond the capabilities and standards of safety here at [facility], his case was cancelled. He will need to be transferred to higher level of care for surgery as we do not have the necessary resources to safely proceed with surgery here. This case was discussed at length with anesthesia as well as the patient and bedside RN who all remain in agreement and understand the treatment plan moving forward. -Continue supportive care, IV antibiotics, PRN analgesia as written -Labs reviewed; leukocytosis improving, bilirubin and LFT's normalizing -Attempted to call patient's Zoe to provide her with an update multiple times without success -Awaiting callback from [facility] general surgery at this time (2) HTN (hypertension): Status: Chronic Qualifiers: Hypertension type: unspecified Qualified Code(s): I10 - Essential (primary) hypertension (3) Adrenal adenoma: Status: Acute Qualifiers: Laterality: left Qualified Code(s): D35.02 - Benign neoplasm of left adrenal gland Subjective Subjective Patient reports: no new complaints and feels better; denies nausea and vomiting Exam Const General: cooperative, healthy appearing, comfortable and no acute distress Resp Effort & Inspection: normal respiratory effort and audible wheezes Cardio Rate: tachycardic Rhythm: regular rhythm GI Inspection: non-distended and scar (left lateral abdomen) Palpation: soft and tender (improved) in the RUQ Percussion: normal to percussion Skin General skin exam: no rashes or lesions noted Neuro General: patient alert, patient awake and patient oriented x3 Objective Last Vital Signs Temp 99.3 F 12/27/20 07:32 Pulse 104 H 12/27/20 07:32 Resp 18 12/27/20 07:32 BP 177/71 H 12/27/20 07:32 Pulse Ox 96 12/27/20 07:32 Laboratory Results - last 24 hr 12/27/20 12/27/20 12/27/20 06:36 06:36 06:36 WBC 11.05 H D RBC 4.13 L Hgb 12.6 L Hct 37.8 L MCV 91.5 MCH 30.5 MCHC 33.3 RDW 14.7 H Plt Count 166 MPV 10.1 Immature Gran % 0.5 Neutrophils % 92.3 Lymphocytes % 2.7 Monocytes % 4.2 Eosinophils % 0.1 Basophils % 0.2 Nucleated RBC % 0 Absolute Neutrophils 10.20 H Absolute Lymphocytes 0.30 L Absolute Monocytes 0.46 Absolute Eosinophils 0.01 Absolute Basophils 0.02 PT 13.8 H INR 1.4 H Sodium 137 Potassium 3.7 Chloride 102 Carbon Dioxide 24.6 Anion Gap 10.4 BUN 28 H Creatinine 1.6 H Estimated GFR/1.73 m2 42.82 Glucose 104 Calcium 8.5 Magnesium 1.8 Total Bilirubin 1.9 H Conjugated Bilirubin 1.5 H AST 215 H ALT 587 H Alkaline Phosphatase 171 H Total Protein 5.8 L Albumin 2.7 L Lipase 31 Patient ABO/Rh Antibody Screen 12/27/20 07:53 WBC RBC Hgb Hct MCV MCH MCHC RDW Plt Count MPV Immature Gran % Neutrophils % Lymphocytes % Monocytes % Eosinophils % Basophils % Nucleated RBC % Absolute Neutrophils Absolute Lymphocytes Absolute Monocytes Absolute Eosinophils Absolute Basophils PT INR Sodium Potassium Chloride Carbon Dioxide Anion Gap BUN Creatinine Estimated GFR/1.73 m2 Glucose Calcium Magnesium Total Bilirubin Conjugated Bilirubin AST ALT Alkaline Phosphatase Total Protein Albumin Lipase Patient ABO/Rh O Positive Antibody Screen NEGATIVE
[2020-12-27 13:30] VITALS: PULSE 110; RESP 1; RESP 18; RESP 8; O2SAT 99
[2020-12-27] MEDS: Albuterol 2.5 MG/3 ML INH SOLN VIAL UPD (13:30)
[2020-12-27] MEDS: Nicotine 14 MG/24 HR PATCH TD (17:37)
[2020-12-27 21:45] VITALS: BP 159/69; PULSE 82; RESP 18; TEMP 36.8; O2SAT 97
[2020-12-28 00:09] VITALS: BP 160/71; PULSE 77; RESP 18; TEMP 36.7; O2SAT 95
[2020-12-28] MEDS: Pantoprazole 40 MG VIAL IVP (01:25)
[2020-12-28] MEDS: Normal Saline Flush 10 ML SYR IVP ×3 (01:26→07:51)
[2020-12-28] MEDS: Lactated Ringers 1,000 ML 125 ML IV (01:26)
[2020-12-28] MEDS: ACETAMINOPHEN 1,000 MG/100 ML BTL 400 MG IVPB (01:26)
[2020-12-28] MEDS: PIPERACILLIN/TAZO 3.375 GM in Normal Saline 50 ML IVPB (03:50)
[2020-12-28 07:42] LABS: Abs Immature Grans 0.08 10^3/uL (0.0-0.06); Absolute Basophil Count 0.03 10^3/uL (0.0-0.2); Absolute Eosinophil Count 0.05 10^3/uL (0.0-0.7); Absolute Monocyte Count 0.63 10^3/uL (0.1-0.8); Absolute Neutrophil Count 8.99 10^3/uL (1.2-6.7); Basophils % 0.3; Eosinophils % 0.5; HCT 35.7 % (40.0-50.0); Immature Grans % 0.8; Lymphocytes % 4.9; MCH 30.9 pg (27.0-33.0); MCHC 33.6 % (32.0-36.0); MPV 9.2 fL (8.0-11.0); Monocytes % 6.1; Neutrophils % 87.4; Nucleated RBC 0 %; Platelet Count 174 10^3/uL (130-400); RBC 3.88 10^6/uL (4.36-5.78); RDW 14.6 % (11.8-14.1); RDW-SD 49.7 fL; WBC 10.28 10^3/uL (4.4-10.8)
[2020-12-28 07:49] VITALS: BP 180/81; PULSE 78; RESP 16; TEMP 36.7; O2SAT 96
[2020-12-28] MEDS: Losartan 50 MG TAB 100 MG PO (07:50)
[2020-12-28] MEDS: dilTIAZem CD 120 MG CAPCR 240 MG PO (07:50)
[2020-12-28] MEDS: dilTIAZem CD 180 MG CAPCR PO (07:50)
[2020-12-28] MEDS: Nicotine 14 MG/24 HR PATCH TD (07:51)
[2020-12-28] MEDS: aMILoride HCL 5 MG TAB PO (07:51)
[2020-12-28 07:55] LABS: Prothrombin Time 10.5 sec (9.3-11.0)
[2020-12-28 08:17] LABS: ALT 367 U/L (16-63); AST 70 U/L (15-37); Albumin 2.6 g/dL (3.4-5.0); Alkaline Phosphatase 158 U/L (46-116); Anion Gap 8.7 mmol/L (3-11); BUN 18 mg/dL (7-18); Bilirubin, Direct 0.7 mg/dL (0.0-0.2); Bilirubin, Total 1.2 mg/dL (0.2-1.0); CO2 25.3 mmol/L (21.0-32.0); CREATININE 1.2 mg/dL (0.70-1.30); Calcium 8.6 mg/dL (8.5-10.1); Chloride 105 mmol/L (98-107); Estimated GFR 59.68 (mL/min/1.73m2); Glucose 100 mg/dL (74-106); Lipase 55 U/L (73-393); Magnesium 1.8 mg/dL (1.8-2.4); Potassium 3.6 mmol/L (3.5-5.1); Sodium 139 mmol/L (136-145); Total Protein 5.1 g/dL (6.4-8.2)
--- NOTE | 2020-12-28 09:01 | PGE_ITS ---
Date of Service Date of service: 12/28/20 Time of Service: 08:30 Assessment and Plan Assessment and plan (1) Choledocholithiasis with acute cholecystitis with obstruction: Status: Acute Assessment and plan: PPD#2 s/p ERCP for choledocolithiasis -AM labs reviewed, continued improvement in bilirubin and LFT's, leukocytosis resolved. -Pllan to [place] home today -F[place] with [facility] [place], clinic number and information provided to patient's -Low fat diet until lap felix -Resume home meds (2) HTN (hypertension): Status: Chronic Qualifiers: Hypertension type: unspecified Qualified Code(s): I10 - Essential (primary) hypertension Subjective Subjective Interval history since last seen: Patient reports feeling much better with almost no abdominal discomfort. He is anxious to go home. Denies any nausea or vomiting. Tolerating full liquids. Exam Const General: cooperative, comfortable and no acute distress Resp Effort & Inspection: normal respiratory effort and no audible wheezes Cardio Rate: regular rate Rhythm: regular rhythm GI Inspection: normal to inspection, non-distended and scar (left mid abdomen) Palpation: soft, no guarding and nontender Skin General skin exam: no rashes or lesions noted Objective Last Vital Signs Temp 98.1 F 12/28/20 07:49 Pulse 78 12/28/20 07:49 Resp 16 12/28/20 07:49 BP 180/81 H 12/28/20 07:49 Pulse Ox 96 12/28/20 07:49 Laboratory Results - last 24 hr 12/28/20 12/28/20 12/28/20 07:34 07:34 07:34 WBC 10.28 RBC 3.88 L Hgb 12.0 L Hct 35.7 L MCV 92.0 MCH 30.9 MCHC 33.6 RDW 14.6 H Plt Count 174 MPV 9.2 Immature Gran % 0.8 Neutrophils % 87.4 Lymphocytes % 4.9 Monocytes % 6.1 Eosinophils % 0.5 Basophils % 0.3 Nucleated RBC % 0 Absolute Neutrophils 8.99 H Absolute Lymphocytes 0.50 L Absolute Monocytes 0.63 Absolute Eosinophils 0.05 Absolute Basophils 0.03 PT 10.5 D INR 1.0 Sodium 139 Potassium 3.6 Chloride 105 Carbon Dioxide 25.3 Anion Gap 8.7 BUN 18 D Creatinine 1.2 Estimated GFR/1.73 m2 59.68 Glucose 100 Calcium 8.6 Magnesium 1.8 Total Bilirubin 1.2 H Conjugated Bilirubin 0.7 H AST 70 H ALT 367 H Alkaline Phosphatase 158 H Total Protein 5.1 L Albumin 2.6 L Lipase 55
--- NOTE | 2020-12-28 09:05 | W.PM.DS.N ---
Date of service: 12/28/20 Time of Service: 09:05 DS: Diagnosis Discharge Diagnosis (1) Choledocholithiasis with acute cholecystitis with obstruction: Status: Acute (2) HTN (hypertension): Status: Chronic Discharge Plan Disposition Patient Disposition: HOME Condition: Stable Discharge Details Reason For Visit: Acute Omaira Admit Date/Time: 12/26/20 00:28 Admit Provider: Rachel Peacock Attending Provider: Rachel Peacock Primary Care Provider: Chad Sotelo [facility] Course Hospital Course: Patient was admitted to [facility] after being found to have evidence of acute cholecystitis. The foll morning his labs showed evidence of biliiary obstruction. 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 He was transferred back to [facility] that evening. He was scheduled for a lap omaira the following day with the prior events unbeknownst to me. Once his records from [facility] [place] were reviewed, his case was discussed in detail with anesthesia. It was ultimately determined that he was not a good surgical candidate for [facility] given its limited resources and the prior events that occured at [facility] [place] [place] after his ERCP. [facility] [place] [place] was again contacted, now regarding lap omaira. Dr. Rouse from general surgery was consulted and agreed that his case would be better suited for [facility] [place]. She offered the clinic number and said they would contact the patient on Tuesday to set up surgery. He was kept one more night and showed evidence of near complete clinical improvement. Labs also normalized and he was stable to be discharged home on 12/28/20. Home Meds and New Rx's Prescriptions: No Action albuterol sulfate 8.5 GM HFA aerosol inhaler 2 puff Inhalation Q4H PRN PRNRF: 0 multivitamin [Daily Multi-Vitamin] 1 EACH tablet 1 tab PO DAILY RF: 0 diltiazem HCl 300 MG capsule,extended release 24 hr 420 mg PO DAILY RF: 0 ascorbic acid (vitamin C) [Vitamin C] 500 MG tablet 500 mg PO DAILY RF: 0 vitamin B complex [Vitamin B-100 Complex] 1 EACH tablet 1 tab PO DAILY RF: 0 losartan 100 MG tablet 100 mg PO DAILY RF: 0 aspirin [Aspir-81] 81 MG tablet,delayed release (DR/EC) 81 mg PO DAILY RF: 0 chlorthalidone 50 mg tablet 25 mg PO DAILY RF: 0 amiloride 5 mg tablet 5 mg PO DAILY RF: 0 doxazosin 8 mg tablet 8 mg PO .QHS RF: 0 PreserVision AREDS-2 250-90-40-1 mg Capsule 1 tab PO DAILY RF: 0 Cacium Magnesium Zinc W/D3 1 tab PO DAILY RF: 0 Super Beta Prostate Advanced 1 tab PO DAILY RF: 0 Super Fruits And Veggies 1 tab PO DAILY RF: 0 Discharge Instructions Activity:: Activity as Tolerated Equipment/Supplies:: No Equipment Needed Diet:: low fat Discharge Orders Discharge Orders: Discharge Order (Routine); Ordered 12/28/20 Ordered By: Jory Stover DS: Summary Time Spent with Patient providing and/or coordinating discharge services: Less than 30 minutes Status at Discharge Functional status at discharge: independent ambulation Overall status at discharge: patient is back to baseline Mental Status: mental status grossly normal Speech and Movement: speech and movement normal Mood: congruent mood Affect: normal affect Exam Psych Mental Status: mental status grossly normal Speech and Movement: speech and movement normal Mood: congruent mood Affect: normal affect DS: Data Vitals/I&O Vitals and I&O: Vital Signs Temperature 98.1 F 12/28/20 07:49 Temperature Source Tympanic 12/28/20 07:49 Pulse 78 12/28/20 07:49 Pulse Rhythm Regular 12/27/20 21:50 Respiratory Rate 16 12/28/20 07:49 Respiratory Effort Non-Labored 12/27/20 21:50 Respiratory Depth Normal 12/27/20 21:50 Respiratory Pattern Normal 12/27/20 21:50 Blood Pressure 180/81 H 12/28/20 07:49 Blood Pressure Position Sitting 12/25/20 16:25 Pulse Oximetry 96 12/28/20 07:49 Oxygen Delivery Method Room Air 12/28/20 07:49 Oxygen Flow Rate 0 12/28/20 07:49 Pain Level 0 12/28/20 07:49 Intake & Output 12/27/20 12/27/20 12/28/20 11:59 23:59 11:59 Intake Total 1300 / 3450.000 2150.000 / 3450.000 452.083 / 452.083 Output Total 400 / 1125 725 / 1125 880 / 880 Balance 900 / 2325.000 1425.000 / 2325.000 -427.917 / -427.917 Intake: IV 1300 / 3450.000 2150.000 / 3450.000 452.083 / 452.083 Output: Urine 400 / 1125 725 / 1125 880 / 880 Other: Urine Color Yellow Yellow Yellow Urine Appearance Clear Clear Clear Urine Odor Normal None None Stool Size Small Moderate Stool Characteristics Soft Liquid Voiding Methods Bedside Commode Urinal Urinal Data Completed and Pending Labs on day of discharge: Labs from last 24 hours 12/28/20 12/28/20 12/28/20 07:34 07:34 07:34 WBC 10.28 RBC 3.88 L Hgb 12.0 L Hct 35.7 L MCV 92.0 MCH 30.9 MCHC 33.6 RDW 14.6 H Plt Count 174 MPV 9.2 Immature Gran % 0.8 Neutrophils % 87.4 Lymphocytes % 4.9 Monocytes % 6.1 Eosinophils % 0.5 Basophils % 0.3 Nucleated RBC % 0 Absolute Neutrophils 8.99 H Absolute Lymphocytes 0.50 L Absolute Monocytes 0.63 Absolute Eosinophils 0.05 Absolute Basophils 0.03 PT 10.5 D INR 1.0 Sodium 139 Potassium 3.6 Chloride 105 Carbon Dioxide 25.3 Anion Gap 8.7 BUN 18 D Creatinine 1.2 Estimated GFR/1.73 m2 59.68 Glucose 100 Calcium 8.6 Magnesium 1.8 Total Bilirubin 1.2 H Conjugated Bilirubin 0.7 H AST 70 H ALT 367 H Alkaline Phosphatase 158 H Total Protein 5.1 L Albumin 2.6 L Lipase 55 PFSH Social History Smoking/Tobacco Use Status: Former Tobacco Use Smoking risk assessment performed?: Yes Alcohol Intake: current Alcohol Intake frequency: 0-2 drinks per day Drug use: Daily Substance use type: marijuana
== END 2020-12-28 10:13 | disposition home or self-care (01) | DRG 446 ==
LOC: ER 12-26 00:44 → MS 12-26 01:27
PROVIDERS: Nurse Practitioner Acute Care; Surgery; Admitting Provider Surgery; Emergency Provider Emergency Medicine; PCP Family Medicine; Visit Provider Surgery
DX: K80.43 Calculus of bile duct with acute cholecystitis with obstruction (principal); I10 Essential (primary) hypertension; F12.90 Cannabis use, unspecified, uncomplicated; D35.02 Benign neoplasm of left adrenal gland; Z95.828 Presence of other vascular implants and grafts; Z20.822 Contact with and (suspected) exposure to COVID-19
CPT/HCPCS: 36415; 80053; 80076; 83690; 86850; 86900; 86901; 87635; 94640; 96361; 96365; 96367; 96375; 99285; 74022; 74176; 81003; 82248; 83605; 83735; 85025; 85610; 86140; 99284; J0131; J2270; J2405; J2543; J7613

== ENCOUNTER 2021-03-02 06:45 | Emergency (ER) | payer OTHER, SELFPAY ==
[2021-03-02] VITALS (36 sets, daily range): BP systolic 139–142; BP diastolic 57–68; PULSE 53–106; RESP 10–26; TEMP 36.4–36.8; O2SAT 96–98
--- NOTE | 2021-03-02 06:57 | ED.GENADUL_ITS ---
Discharge Plan Disposition Patient Disposition: [facility] Discharge Details Clinical Impression: Acute cholecystitis Primary Care Provider: Chad Sotelo ED Provider: Erica Page Home Meds and New Rx's Prescriptions: No Action albuterol sulfate 8.5 GM HFA aerosol inhaler 2 puff Inhalation Q4H PRN PRNRF: 0 multivitamin [Daily Multi-Vitamin] 1 EACH tablet 1 tab PO DAILY RF: 0 diltiazem HCl 300 MG capsule,extended release 24 hr 420 mg PO DAILY RF: 0 ascorbic acid (vitamin C) [Vitamin C] 500 MG tablet 500 mg PO DAILY RF: 0 vitamin B complex [Vitamin B-100 Complex] 1 EACH tablet 1 tab PO DAILY RF: 0 losartan 100 MG tablet 100 mg PO DAILY RF: 0 aspirin [Aspir-81] 81 MG tablet,delayed release (DR/EC) 81 mg PO DAILY RF: 0 chlorthalidone 50 mg tablet 25 mg PO DAILY RF: 0 amiloride 5 mg tablet 5 mg PO DAILY RF: 0 doxazosin 8 mg tablet 8 mg PO .QHS RF: 0 PreserVision AREDS-2 250-90-40-1 mg Capsule 1 tab PO DAILY RF: 0 Cacium Magnesium Zinc W/D3 1 tab PO DAILY RF: 0 Super Beta Prostate Advanced 1 tab PO DAILY RF: 0 Super Fruits And Veggies 1 tab PO DAILY RF: 0 Discharge Data Discharge Date/Time-TO BE ENTERED AT DEPARTURE: 03/02/21 15:43 Medical Decision Making <Nan Dos Santos DO - Last Filed: 03/02/21 07:22> 70-year-old male with a history of daily alcohol abuse, hypertension, former smoker w/ recent admission for acute cholecystitis with choledocholithiasis sent to [facility] for an ERCP on 12/26/2020 with extraction of stones and sludge in the CBD removed via sphincterotomy and balloon extraction whose course was complicated after requiring reintubation in the recovery room secondary to tracheomalacia scheduled for cholecystectomy at [facility] on 03/06/21 presents with sharp right-sided abdominal pain for the past 4 days, worse this morning. Heart rate minimally elevated. He is afebrile and appears nontoxic but uncomfortable. He has right-sided abdominal tenderness extending from the right upper to right lower quadrants. Will obtain screening labs including LFTs and lipase. Will hold on additional imaging pending discussion with [facility] general surgery pending labs. Will place an IV, give bolus IV fluids and morphine. Case endorsed to Dr. Page to follow-up on labs and discussion with [facility] general surgery regarding final disposition. Medical Records Medical records reviewed: Yes I reviewed the patient's medical records. <Erica Page MD - Last Filed: 03/02/21 20:48> Patient signed out to me by Dr. Dos Santos at time of shift change with labs, ultrasound pending. Labs reviewed, white count 13.13, hemoglobin 15.3, anion gap 8.4, creatinine 1.4, AST 22, ALT 20, T bili 0.5, alk phos 108. Ultrasound shows dilated common bile duct, findings consistent with acute cholecystitis. Patient reassessed, reports pain controlled since receiving morphine earlier this morning. 0920: Discussed patient with [facility], patient refused due to no capacity. [place] [facility] 0927: Discussed patient with [facility], awaiting callback, images sent to [facility] 0942: Discussed Pt with Dr. Rutherford of surgery at [facility], who agrees with zosyn, no further acute recommendations, states Pt needs 48 hours abx and then cholecystectomy if no improvement, [facility] with minimal capacity, plan for [facility] director Reinaldo Vallejo to discuss Pt with [facility] as [place] is known to their system. Awaiting callback. 10:46: Discussed patient with transfer center at [facility] who had discussed patient with Reinaldo Babin. Reinaldo Babin discussed patient with transfer center at [facility], as patient is already known to them and recently had biliary procedure with [facility], patient should be transferred to their facility, [facility] to have an open bed within 48 hours for this patient. Refused for transfer to [facility]. 10:55 Discussed patient with [facility] for possible listing/accepting physician within the next 48 hours, anticipating that patient may be able to be admitted to [facility] awaiting transfer for definitive surgery. Awaiting callback. 11:55: discussed with Dr. Varner of surgery at [facility], who requested other surgical centers be contacted, will discuss with his anesthesia team for availability, will call back. I discussed patient with Dr. Mcmahan of [facility], who states that [facility] cannot accept patient for transfer at this time due to capacity, surgical patients or not listed for acceptance at [facility] either. He states that patient presentation at this point (including labs, ultrasound result) does not state emergent OR for cholecystectomy, however patient is to be transferred she should be sent to somewhere that is capable of doing surgery in case patient condition should decline unexpectedly. Agrees with continue Luis A. I discussed Pt with his , who reports that [facility] and [facility]. [facility] contacted, awaiting callback. I discussed patient with Dr. Stover of surgery at [facility], who confirmed that anesthesia specifically said the patient was not suitable to go to the OR at this facility and would require transfer for surgery. Patient with vital signs remaining stable, heart rate 60s. Patient reports that he is having some pain returning after resolution of pain earlier today after morphine. Will redose with morphine. We will continue to monitor and reassess. 13:17: Dr. Varner accepted Pt pending refusal from the [facility], [facility] Varner contacted again to confirm transfer [place] [facility] [place], awaiting callback. 1434: no callback from [facility], attempted to call [place], no beds available. 1446: [facility] may have beds available per house sitter, awaiting callback 1446: [facility] [place], no bed availability 1448: [facility] contacted, no bed availability 1450: [facility] contacted, no bed availability 1451: [facility] contacted, no bed availability, will call back if bed opens 1458: [facility] contacted, awaiting callback 1502: [facility] accepted Pt, accepting physician Dr. Varner. Pt left ED with medics without further issue. Medical Records Medical records reviewed: Yes I reviewed the patient's medical records. Imaging Data Radiologic Study: Attestation: I personally reviewed and interpreted this imaging study as follows: Radiologist's impression: EXAM: US ABDOMEN LIMITED CLINICAL HISTORY: h/o biliary disease, RUQ pain TECHNIQUE: Ultrasound abdomen performed using standard protocol. COMPARISON: US ABDOMEN ULTRASOUND (P) from 02/15/[address] ABDOMEN PELVIS WO from 12/25/[address] ABDOMEN PELVIS WO from 12/25/2020 FINDINGS: There is no ascites evident. LIVER: Liver is hyperechoic indicating steatosis. There are no discrete focal hepatic lesions but there are dilated intrahepatic ducts. GALLBLADDER/BILIARY: Cholelithiasis. There is a large shadowing gallstone at the gallbladder fundus level measuring 0.4 cm. There is also sludge evident within the gallbladder neck region as well as within the cystic duct. There is some pericholecystic fluid. Gallbladder wall thickness is 4.4 millimeter The common hepatic duct issignificantly dilated, measuring 12.3mm at the level of marsha hepatis. PANCREAS: There is no evidence of pancreatic mass nor dilatation of the pancreatic duct. RIGHT KIDNEY:No evidence of solid mass, calculus, nor hydronephrosis. Solitary small cortical cyst. IMPRESSION: 1. There is cholelithiasis and evidence of acute cholecystitis with gallbladder wall thickening. In addition to calculus in the fundus there are smaller calculi in the gallbladder neck and cystic duct and the size common hepatic duct/CBD is dilated (12 millimeters). Although we cannot completely visualize the lower most CBD, suspect possible calculus in the lower CBD. The patient was also tender over the gallbladder during scanning today. 2. Mild hepatomegaly. Hepatic steatosis. There are dilated intrahepatic ducts. 3. There is no ascites. Lab Data Lab results reviewed: Yes I reviewed the patient's lab results. Labs: Laboratory Tests Range/Units 03/02/21 03/02/21 03/02/21 07:20 07:20 12:47 WBC (4.4-10.8) 10^3/uL 13.13 H RBC (4.36-5.78) 10^6/uL 4.91 Hgb (13.5-17.5) g/dL 15.3 Hct (40.0-50.0) % 46.3 MCV (80-95) fL 94.3 MCH (27.0-33.0) pg 31.2 MCHC (32.0-36.0) % 33.0 RDW (11.8-14.1) % 13.7 Plt Count (130-400) 10^3/uL 245 MPV (8.0-11.0) fL 9.4 Immature Gran % 0.2 Neutrophils % 84.4 Lymphocytes % 6.1 Monocytes % 8.5 Eosinophils % 0.4 Basophils % 0.4 Nucleated RBC % % 0 Absolute Neutrophils (1.2-6.7) 10^3/uL 11.08 H Absolute Lymphocytes (1.2-3.4) 10^3/uL 0.80 L Absolute Monocytes (0.1-0.8) 10^3/uL 1.12 H Absolute Eosinophils (0.0-0.7) 10^3/uL 0.05 Absolute Basophils (0.0-0.2) 10^3/uL 0.05 Sodium (136-145) mmol/L 137 Potassium (3.5-5.1) mmol/L 3.7 Chloride (98-107) mmol/L 98 Carbon Dioxide (21.0-32.0) mmol/L 30.6 Anion Gap (3-11) mmol/L 8.4 BUN (7-18) mg/dL 19 H Creatinine (0.70-1.30) mg/dL 1.4 H Estimated GFR/1.73 m2 (mL/min/1.73m2) 49.96 Glucose (74-106) mg/dL 162 H Calcium (8.5-10.1) mg/dL 9.4 Total Bilirubin (0.2-1.0) mg/dL 0.5 AST (15-37) U/L 22 ALT (16-63) U/L 28 Alkaline Phosphatase (46-116) U/L 108 Total Protein (6.4-8.2) g/dL 7.3 Albumin (3.4-5.0) g/dL 3.8 Lipase (73-393) U/L 48 COVID-19 Source Nasal/Nares HPI <Nan Dos Santos DO - Last Filed: 03/02/21 07:22> General Mode of arrival: ambulatory . Date/Time Provider Initiated Documentation: 03/02/21 06:56 . Limitations to Documentation: no limitations . Information obtained by: patient . HPI Narrative: Patient is a 70-year-old male with a history of daily alcohol abuse, hypertension, former smoker, with an admission in December after diagnosis of acute cholecystitis with choledocholithiasis sent to [facility] for an ERCP on 12/26/2020 with extraction of stones and sludge in the CBD removed via sphincterotomy and balloon extraction whose course was complicated after requiring reintubation in the recovery room secondary to tracheomalacia with now plan for cholecystectomy at [facility] on 03/06 presents with right-sided abdominal pain for the past 4 days, worse this morning now with nausea and dry heaving. He describes the pain is sharp, right-sided with occasional radiation to the right lateral side of his chest and back. He has not taken any medication for pain. His last bowel movement was yesterday and within normal limits. Related Data Home Medications Medication Instructions Recorded Confirmed albuterol sulfate 2 puff INHALATION Q4H PRN PRN 07/31/13 03/02/21 ascorbic acid (vitamin C) [Vitamin 500 mg PO DAILY 07/31/13 03/02/21 C] aspirin [Aspir 81] 81 mg PO DAILY 07/31/13 03/02/21 diltiazem HCl 420 mg PO DAILY 07/31/13 03/02/21 losartan 100 mg PO DAILY 07/31/13 03/02/21 multivitamin [Multi Vitamin Daily] 1 tab PO DAILY 07/31/13 03/02/21 vitamin B complex [Vitamin B-100 1 tab PO DAILY 07/31/13 03/02/21 Complex] Cacium Magnesium Zinc W/D3 1 tab PO DAILY 12/25/20 Super Beta Prostate Advanced 1 tab PO DAILY 12/25/20 Super Fruits And Veggies 1 tab PO DAILY 12/25/20 amiloride 5 mg PO DAILY 12/25/20 03/02/21 chlorthalidone 25 mg PO DAILY 12/25/20 03/02/21 doxazosin 8 mg PO .QHS 12/25/20 03/02/21 vit C,Q-Ct-xhemy-lutein-zeaxan 1 tab PO DAILY 12/25/20 03/02/21 [PreserVision AREDS-2] Allergies Allergy/AdvReac Type Severity Reaction Status Date / Time No Known Allergies Allergy Unverified 03/02/21 06:50 General Stated Complaint: Abd Prob BARBARA: 3 Review of Systems <Nan Dos Santos DO - Last Filed: 03/02/21 07:22> All systems reviewed & are unremarkable except as noted in HPI and below Constitutional Constitutional: Reports as per HPI, Denies chills and Denies fever(s) Eyes Eyes: Denies blurry vision ENT Ears, Nose, Mouth, and Throat: Denies dizziness, Denies sore throat and Denies throat swelling Cardiovascular Cardiovascular: Denies chest pain and Denies dyspnea Respiratory Respiratory: Denies cough and Denies dyspnea Gastrointestinal Gastrointestinal: Reports abdominal pain, Denies diarrhea, Reports nausea and Denies vomiting Genitourinary Genitourinary: Denies hematuria and Denies dysuria Musculoskeletal Musculoskeletal: Denies back pain and Denies numbness Integumentary/Breasts Skin/Breast: Denies lesions and Denies rash Neurologic Neurologic: Denies dizziness, Denies localized weakness and Denies numbness Allergic/Immunologic Allergic/Immunologic: Denies throat swelling PFSH <Nan Dos Santos DO - Last Filed: 03/02/21 07:22> Medical History (Updated 03/02/21 @ 15:30 by Erica Page MD) Cannabis use, uncomplicated Choledocholithiasis with acute cholecystitis with obstruction Daily consumption of alcohol Enlarged prostate Former smoker History of kidney cancer HTN (hypertension) Retinal detachment Surgical History (Updated 03/02/21 @ 07:12 by Nan Dos Santos DO) H/O endovascular stent graft for abdominal aortic aneurysm History of back surgery History of eye surgery Social History Smoking/Tobacco Use Status: Former Tobacco Use Smoking risk assessment performed?: Yes Alcohol Intake: current Alcohol Intake frequency: 0-2 drinks per day Alcohol type: hard liquor Drug use: Daily Substance use type: marijuana Do you feel safe at home: Yes Do you feel safe in your relationship?: Yes Exam <Nan Dos Santos DO - Last Filed: 03/02/21 07:22> Const General: cooperative, no acute distress and ill appearing chronically Orientation: alert, awake and oriented x3 HENMT Head: normal to inspection Face and sinus: normal facial exam Eyes General: appearance normal, both eyes and all related structures EOM: EOM intact bilaterally Neck Neck: normal visual inspection and No submandibular swelling Lymphatic: no lymphadenopathy noted Chest Chest: normal inspection of the chest and no tenderness Resp Effort & Inspection: normal respiratory effort and able to speak in complete sentences Auscultation: clear to auscultation bilaterally Cardio Rate: regular rate Rhythm: regular rhythm GI Inspection: normal to inspection and distended Palpation: soft, not firm, not rigid and tender in the RLQ and in the RUQ Auscultation: hypoactive bowel sounds Skin General skin exam: no rashes or lesions noted Neuro General: patient alert, patient awake and patient oriented x3 Cognition: normal cognition Speech: speech normal Motor: muscle tone normal throughout Sensory Exam: no sensory deficits noted Extrem General: normal to inspection, full ROM, capillary refill normal, no calf tenderness bilaterally and no edema Psych Appearance: grossly normal Mental Status: mental status grossly normal Speech and Movement: speech and movement normal Affect: normal affect Course <Nan Dos Santos DO - Last Filed: 03/02/21 07:22> Vital Signs Vital signs: Vital Signs Temperature 98.2 F 03/02/21 06:48 Pulse 106 H 03/02/21 06:48 Respiratory Rate 20 03/02/21 06:48 Blood Pressure 142/68 H 03/02/21 06:48 Pulse Oximetry 97 03/02/21 06:48 Temperature 98.2 F 03/02/21 06:48 Temperature Source Temporal Artery Scan 03/02/21 06:48 Pulse 106 H 03/02/21 06:48 Respiratory Rate 20 03/02/21 06:48 Respiratory Effort 03/02/21 06:53 Blood Pressure 142/68 H 03/02/21 06:48 Blood Pressure Position Sitting 03/02/21 06:48 Pulse Oximetry 97 03/02/21 06:48 Oxygen Delivery Method Room Air 03/02/21 06:48 Oxygen Flow Rate 0 03/02/21 06:48 Pain Level 10 03/02/21 06:48 Sign Out <Nan Dos Santos DO - Last Filed: 03/02/21 07:22> Sign Out Data: Sign Out Comment: Recent admission for acute cholecystitis with choledocholithiasis in December 2020. Sent to [facility] for ERCP with removal of CBD stones but recovery complicated by reintubation secondary to tracheomalacia. Plan is for cholecystectomy at [facility] this Tuesday 03/06. Follow-up on labs and discuss with [facility] general surgery. Last updated by Nan Dos Santos DO at 03/02/21 07:24
[2021-03-02] MEDS: Normal Saline 1,000 ML 1000 ML IV (07:19)
[2021-03-02] MEDS: Normal Saline Flush 10 ML SYR IVP ×4 (07:19→15:03)
[2021-03-02 07:31] LABS: Abs Immature Grans 0.03 10^3/uL (0.0-0.06); Absolute Basophil Count 0.05 10^3/uL (0.0-0.2); Absolute Eosinophil Count 0.05 10^3/uL (0.0-0.7); Absolute Monocyte Count 1.12 10^3/uL (0.1-0.8); Absolute Neutrophil Count 11.08 10^3/uL (1.2-6.7); Basophils % 0.4; Eosinophils % 0.4; HCT 46.3 % (40.0-50.0); HGB 15.3 g/dL (13.5-17.5); Immature Grans % 0.2; Lymphocytes % 6.1; MCH 31.2 pg (27.0-33.0); MCV 94.3 fL (80-95); MPV 9.4 fL (8.0-11.0); Monocytes % 8.5; Neutrophils % 84.4; Nucleated RBC 0 %; Platelet Count 245 10^3/uL (130-400); RBC 4.91 10^6/uL (4.36-5.78); RDW 13.7 % (11.8-14.1); WBC 13.13 10^3/uL (4.4-10.8)
[2021-03-02 07:40] LABS: ALT 28 U/L (16-63); AST 22 U/L (15-37); Albumin 3.8 g/dL (3.4-5.0); Alkaline Phosphatase 108 U/L (46-116); Anion Gap 8.4 mmol/L (3-11); BUN 19 mg/dL (7-18); Bilirubin, Total 0.5 mg/dL (0.2-1.0); CO2 30.6 mmol/L (21.0-32.0); CREATININE 1.4 mg/dL (0.70-1.30); Calcium 9.4 mg/dL (8.5-10.1); Chloride 98 mmol/L (98-107); Estimated GFR 49.96 (mL/min/1.73m2); Glucose 162 mg/dL (74-106); Lipase 48 U/L (73-393); Potassium 3.7 mmol/L (3.5-5.1); Sodium 137 mmol/L (136-145); Total Protein 7.3 g/dL (6.4-8.2)
--- NOTE | 2021-03-02 07:56 | DI.US_ITS ---
Exam(s) US ABDOMEN LIMITED EXAM: US ABDOMEN LIMITED CLINICAL HISTORY: h/o biliary disease, RUQ pain TECHNIQUE: Ultrasound abdomen performed using standard protocol. COMPARISON: US ABDOMEN ULTRASOUND (P) from 02/15/[address] ABDOMEN PELVIS WO from 12/25/[address] ABDOMEN PELVIS WO from 12/25/2020 FINDINGS: There is no ascites evident. LIVER: Liver is hyperechoic indicating steatosis. There are no discrete focal hepatic lesions but th ere are dilated intrahepatic ducts. GALLBLADDER/BILIARY: Cholelithiasis. There is a large shadowing gallstone at the gallbladder fundus level measuring 0.4 cm. There is also sludge evident within the gallbladder neck region as well as w ithin the cystic duct. There is some pericholecystic fluid. Gallbladder wall thickness is 4.4 prerna meter The common hepatic duct issignificantly dilated, measuring 12.3mm at the level of marsha hepatis. PANCREAS: There is no evidence of pancreatic mass nor dilatation of the pancreatic duct. RIGHT KIDNEY:No evidence of solid mass, calculus, nor hydronephrosis. Solitary small cortical cyst. IMPRESSION: 1. There is cholelithiasis and evidence of acute cholecystitis with gallbladder wall thickening. In addition to calculus in the fundus there are smaller calculi in the gallbladder neck and cystic duct and the size common hepatic duct/CBD is dilated (12 millimeters). Although we cannot completely vis ualize the lower most CBD, suspect possible calculus in the lower CBD. The patient was also tender o apryl the gallbladder during scanning today. 2. Mild hepatomegaly. Hepatic steatosis. There are dilated intrahepatic ducts. 3. There is no ascites. DATA REPOSITORY:
[2021-03-02] MEDS: PIPERACILLIN/TAZO 4.5 GM in Normal Saline 100 ML IVPB ×2 (10:04→15:02)
[2021-03-02 12:53] LABS: Source Nasal/Nares
[2021-03-02] MEDS: Inhaler, Assist Device 1 EACH MC (15:01)
[2021-03-02] MEDS: Albuterol HFA 8 GM 60 PUFF INH IH (15:01)
[2021-03-02 20:55] LABS: COVID-19 PCR Negative (Negative)
== END 2021-03-02 15:43 | disposition short-term general hospital (02) ==
PROVIDERS: Physician Assistant; Emergency Provider Student in an Organized Health Care Education/Training Program; PCP Family Medicine
DX: K81.0 Acute cholecystitis (principal)
CPT/HCPCS: 36415; 80053; 83690; 87635; 96361; 96365; 96366; 96375; 96376; 99285; 76705; 85025; J2543

== ENCOUNTER → 2023-08-11 15:16 | Outpatient (CLI) | payer OTHER, SELFPAY ==
--- NOTE | 2023-08-11 12:45 | DI.US_ITS ---
Exam(s) US SOFT TISSUE EXTREMITY EXAM: US SOFT TISSUE EXTREMITY CLINICAL HISTORY: M79.5 Residual foreign body in tissue,left 4th finger over middle phalynx,. TECHNIQUE: Ultrasound was performed using standard protocol. COMPARISON: US US LOWER EXTREMITY VENOUS RT from 08/11/2023 FINDINGS: Sonographic assessment utilizing grayscale and color Doppler imaging was performed and targeted to th e area of clinical concern. There are several echogenic partially shadowing foci in the subcutaneous tissues of the left 4th fing er suspicious for foreign bodies. (Series 1, image 130). IMPRESSION: Findings suspicious for foreign body in the subcutaneous tissues of the 4th finger. DATA REPOSITORY:
--- NOTE | 2023-08-11 12:45 | DI.US_ITS ---
Exam(s) US LOWER EXTREMITY VENOUS RT EXAM: US LOWER EXTREMITY VENOUS RT CLINICAL HISTORY: M79.604 Pain in right leg, right medial thight pain, r/o DVT. TECHNIQUE: Lower extremity venous ultrasound performed using grayscale, color-flow, and spectral Do ppler analysis. COMPARISON: No exams were available for comparison FINDINGS: The common femoral, femoral and popliteal veins demonstrate normal compressibility, augmentation, and color Doppler. The posterior tibial veins are patent. No saphenous vein thrombosis or other superfi cial venous thrombosis is seen. No hematoma or Curiel's cyst is seen. In the area of patient's pain in the distal thigh, there is a 1.6 x 0.8 x 0.9 centimeter area of complex fluid. Findings could be posttraumatic. No findings to suggest abscess. IMPRESSION: Small area of complex fluid in the area of patient's pain. Clinical correlation recommended. No phill dence of DVT. DATA REPOSITORY:
== END ==
PROVIDERS: PCP Family Medicine; Visit Provider Physician Assistant
DX: M79.5 Residual foreign body in soft tissue (principal); M79.604 Pain in right leg
CPT/HCPCS: 76881; 93971

== ENCOUNTER 2024-01-24 11:37 | Inpatient (IN) | payer OTHER, SELFPAY ==
[2024-01-24] VITALS (39 sets, daily range): BP systolic 103–192; BP diastolic 34–65; PULSE 56–68; RESP 14–18; TEMP 35.9–37.5; O2SAT 94–99
--- NOTE | 2024-01-24 11:45 | ED.GENADUL_ITS ---
Discharge Plan Disposition Patient Disposition: Admit to [facility] Condition: Stable Discharge Details Chief Complaint: Urinary Clinical Impression: Sepsis, Urinary tract infection Primary Care Provider: Unknown,Unknown ED Provider: Geraldo Jacobo Home Meds and New Rx's Prescriptions: No Action albuterol sulfate 8.5 GM HFA aerosol inhaler 2 puff Inhalation Q4H PRN PRN diltiazem HCl 300 MG capsule,extended release 24 hr 420 mg PO DAILY ascorbic acid (vitamin C) [Vitamin C] 500 MG tablet 500 mg PO DAILY vitamin B complex [Vitamin B-100 Complex] 1 EACH tablet 1 tab PO DAILY losartan 100 MG tablet 100 mg PO DAILY aspirin [Aspir-81] 81 MG tablet,delayed release (DR/EC) 81 mg PO DAILY chlorthalidone 50 mg tablet 25 mg PO DAILY amiloride 5 mg tablet 5 mg PO DAILY doxazosin 8 mg tablet 8 mg PO .QHS PreserVision AREDS-2 250-90-40-1 mg Capsule 1 tab PO DAILY Cacium Magnesium Zinc W/D3 1 tab PO DAILY Super Beta Prostate Advanced 1 tab PO DAILY latanoprost 0.005 % drops 1 drp ophthalmic (eye) DAILY budesonide 4 mg capsule,delayed release(DR/EC) 24 mg PO DAILY HPI General Date/Time Provider Initiated Documentation: 01/24/24 11:44 . HPI Narrative: 73 year-old male presents to ED today by POV/ambulating with his daughter with a chief complaint of urinary retention, only able to go about a tablespoon at a time with onset this past Tuesday. Quality described as just feels pressure when he has to go, no fever, no radiation to flank pain, nausea, vomiting, chest pain, shortness of breath, dark urine, redness at meatus, testicular pain, constipation. Severity is described as mild to moderate. Palliating factors include nothing specific attempted. Provoking factors include nothing specific. Events leading up to the incident/Associated Symptoms: Denies history of renal stones, endorses a L kidney mass that was removed years ago. Patient not anticoagulated. Related Data Home Medications ?Medication ?Instructions ?Recorded ?Confirmed albuterol sulfate 90 mcg/actuation 2 puff inhalation Q4H PRN PRN 07/31/13 01/24/24 aerosol inhaler ascorbic acid (vitamin C) 500 mg 500 mg PO DAILY 07/31/13 01/24/24 tablet (Vitamin C) aspirin 81 mg tablet,delayed 81 mg PO DAILY 07/31/13 01/24/24 release (Aspir-) diltiazem HCl 300 mg capsule,24 420 mg PO DAILY 07/31/13 01/24/24 hr,extended release losartan 100 mg tablet 100 mg PO DAILY 07/31/13 01/24/24 vitamin B complex (Vitamin B-100 1 tab PO DAILY 07/31/13 01/24/24 Complex tablet) Cacium Magnesium Zinc W/D3 1 tab PO DAILY 12/25/20 01/24/24 Super Beta Prostate Advanced 1 tab PO DAILY 12/25/20 01/24/24 amiloride 5 mg tablet 5 mg PO DAILY 12/25/20 01/24/24 chlorthalidone 50 mg tablet 25 mg PO DAILY 12/25/20 01/24/24 doxazosin 8 mg tablet 8 mg PO .QHS 12/25/20 01/24/24 vit C 250 mg-vit E 90 mg-zinc 40 1 tab PO DAILY 12/25/20 01/24/24 mg-copper 1 [id number] capsule (PreserVision AREDS-2) budesonide 4 mg capsule,delayed 24 mg PO DAILY 01/24/24 01/24/24 release latanoprost 0.005 % eye drops 1 drp ophthalmic (eye) DAILY 01/24/24 01/24/24 Allergies Allergy/AdvReac Type Severity Reaction Status Date / Time No Known Allergies Allergy Unverified 01/24/24 11:44 General Stated Complaint: Urinary BARBARA: 3 Review of Systems All systems reviewed & are unremarkable except as noted in HPI and below Exam Narrative Exam Narrative: GENERAL APPEARANCE: Well-nourished, non-toxic, awake and alert, atraumatic, no acute distress. SKIN: Warm, pink, dry, intact, without rashes/lesions/ulcerations. HEAD: Normocephalic, atraumatic, normal hair distribution for gender/age. EYES: Normal conjunctiva, no exudates on lids/lashes. ENT: Nares patent, no circumoral cyanosis, no facial swelling NECK: Supple, trachea midline, painless cervical ROM. LUNGS/CHEST: Lungs CTA bilaterally, non-labored respirations, normal A/P diameter, symmetrical expansion, no chest wall deformity HEART (CV/PV): Regular rate and rhythm without murmur, no peripheral edema, no JVD. ABDOMEN: Soft, non-distended, no guarding, suprapubic distention without periton eal abdomen, no erythema at urethral meatus. MSK: Normal ROM, no swelling/deformity to bilateral UEs or LEs, moving all extremities without weakness, no cyanosis, spine midline without tenderness, nor mal curvature. NEURO: Mental Status AAOx4 - alert to person, place, time, events No facial droop, no forehead involvement. Motor: No focal weakness - strength 5/5 in bilateral UEs and LEs, proximal and distal, symmetric. Sensory: sensation intact to light touch globally. Gait normal: patient ambulated without ataxia into ED room. PSYCH: euthymic, cooperative, pleasant, appropriate speech Course Vital Signs Vital signs: Vital Signs Temperature 36.8 C 01/24/24 11:41 Pulse 66 01/24/24 11:41 Respiratory Rate 14 01/24/24 11:41 Blood Pressure 192/52 H 01/24/24 11:41 Pulse Oximetry 98 01/24/24 11:41 Temperature 36.8 C 01/24/24 11:41 Temperature Source Oral 01/24/24 11:41 Pulse 66 01/24/24 11:41 Respiratory Rate 14 01/24/24 11:41 Blood Pressure 192/52 H 01/24/24 11:41 Blood Pressure Position Sitting 01/24/24 11:41 Pulse Oximetry 98 01/24/24 11:41 Oxygen Delivery Method Room Air 01/24/24 11:41 Oxygen Flow Rate 0 01/24/24 11:41 Pain Level 5 01/24/24 11:41 Medical Decision Making This dictation utilizes [id number]-used dictation software and may contain unedited grammatical errors. 73 year-old male presents to ED today by POV/ambulating with his daughter with a chief complaint of urinary retention, only able to go about a tablespoon at a time with onset this past Tuesday. Quality described as just feels pressure when he has to go, no fever, no radiation to flank pain, nausea, vomiting, chest pain, shortness of breath, dark urine, redness at meatus, testicular pain, constipation. Severity is described as mild to moderate. Palliating factors include nothing specific attempted. Provoking factors include nothing specific. Events leading up to the incident/Associated Symptoms: Denies history of renal stones, endorses a L kidney mass that was removed years ago. Patients' medical history: Hypertension, history of kidney cancer, alcohol and cannabis use, enlarged prostate,, history of endovascular stent graft for AAA. Family and social history: daily ETOH and cannabis use. Pertinent exam findings / vital signs include mild suprapubic distention, no peritoneal signs, no CVA tenderness to percussion bilaterally, stable vitals, benign cardiopulmonary status, neuro intact. Differential / pathologies of concern include BPH with outflow obstruction, UTI, pyelonephritis, sepsis, ureterolithiasis, malignancy. Diagnostic studies of: -CBC, CMP, lactate, procalcitonin, blood cultures, urinalysis, ultrasound renal -CBC shows a leukocytosis of 22.06 with significant elevation of neutrophils, incidental finding of anemia, left shift with 1.8% immature granulocytes -Lactate 1.7, procalcitonin -CMP shows CRYSTAL with creatinine of 2.0 and elevated BUN likely dehydration -Blood Cx's pending -US renal shows no severe hydronephrosis Interventions of: -IV Ceftriaxone, IVF. ED Course/Assessment/Plan: 73-year-old male has been having urinary difficulty since last Tuesday, denies any fevers, abdominal pain is only mild when he asked to urinate, is able to pass about a tablespoon at a time. His initial bladder scan showed 150 mL in the bladder, his urine shows significant signs of UTI, his white count was 22 with a left shift indicating sepsis with elevated procalcitonin to further solidify this diagnosis. I approached the hospitalist Dr. Antoine for admission who accepted at 1500. Disposition of Sepsis, Urinary Tract Infection. Patient verbalized understanding of the plan and return to ED criteria and e ngaged in shared decision making. Medical Records Medical records reviewed: Yes I reviewed the patient's medical records. Imaging Data Radiologic Study: Attestation: I personally reviewed and interpreted this imaging study as follows: Imaging: Ultrasound Radiologist's impression: EXAM: US RENAL CLINICAL HISTORY: difficulty urinating. TECHNIQUE: Crowley scale, color and spectral Doppler were used. COMPARISON: CT CT ABDOMEN PELVIS WO from 12/25/2020 US US ABDOMEN LIMITED from 03/02/2021 FINDINGS: Right kidney: 9.6 cm Echogenicity: Normal Hydronephrosis: No Cyst or mass: Small cysts. Nephrolithiasis: 6 millimeter calcification lower pole right kidney. Left kidney: 7.6 1cm Echogenicity: Normal Hydronephrosis: No Cyst or mass: Small cysts, largest measuring 1.4 cm mid left kidney. Nephrolithiasis: 6 millimeter calcification mid left kidney Bladder:Normal. Both ureteral jets were visualized. Prevoid vol:140 cc Postvoid vol: Not performed. Patient unable to void. Enlarged prostate with volume of 53 cc. IMPRESSION: Left kidney is somewhat atrophic. Bilateral small renal cysts. Bilateral renal calcifications which may represent vascular calcifications based on prior CT. Enlarged prostate. Patient unable to void for postvoid residual volume measurement. Lab Data Lab results reviewed: Yes I reviewed the patient's lab results. Labs: 01/24/24 14:32 Urine - Reflex from Ua Urine Culture - Pending 01/24/24 13:20 Blood Blood Culture - Pending 01/24/24 13:10 Blood Blood Culture - Pending Laboratory Tests Range/Units 01/24/24 01/24/24 01/24/24 12:15 13:10 14:32 WBC (4.4-10.8) 10^3/uL 22.06 H RBC (4.36-5.78) 10^6/uL 4.05 L Hgb (13.5-17.5) g/dL 12.6 L Hct (40.0-50.0) % 37.4 L MCV (80-95) fL 92 MCH (27.0-33.0) pg 31.1 MCHC (32.0-36.0) % 33.7 RDW (11.8-14.1) % 14.5 H Plt Count (130-400) 10^3/uL 169 MPV (8.0-11.0) fL 8.7 Immature Gran % % 1.8 Neutrophils % % 88.4 Lymphocytes % % 3.9 Monocytes % % 5.7 Eosinophils % % 0.0 Basophils % % 0.2 Nucleated RBC % (0.0-0.3) % 0.0 Absolute Neutrophils (1.2-6.7) 10^3/uL 19.50 H Absolute Lymphocytes (1.2-3.4) 10^3/uL 0.86 L Absolute Monocytes (0.1-0.8) 10^3/uL 1.26 H Absolute Eosinophils (0.0-0.7) 10^3/uL 0.00 Absolute Basophils (0.0-0.2) 10^3/uL 0.04 VBG Lactate (0.6-1.4) mmol/L 1.7 H Sodium (136-145) mmol/L 133 L Potassium (3.5-5.1) mmol/L 4.0 Chloride (98-107) mmol/L 96 L Carbon Dioxide (21.0-32.0) mmol/L 25.0 Anion Gap (3-11) mmol/L 12.0 H BUN (7-18) mg/dL 47 H Creatinine (0.70-1.30) mg/dL 2.0 H Est GFR (CKD-EPI 2020) (mL/min/1.73m2) 34.38 Glucose (74-106) mg/dL 126 H Calcium (8.5-10.1) mg/dL 9.4 Total Bilirubin (0.2-1.0) mg/dL 0.58 AST (15-37) U/L 20 ALT (16-63) U/L 38 Alkaline Phosphatase (46-116) U/L 72 Total Protein (6.4-8.2) g/dL 6.5 Albumin (3.4-5.0) g/dL 2.7 L Procalcitonin ng/mL 0.9 Urine Color (Yellow) Yellow Urine Clarity (Clear) Cloudy Urine pH (5-8) 5.5 Ur Specific [place] (1.005-1.025) 1.025 Urine Protein (Neg-Trace) mg/dL 100 H Urine Ketones (Negative) mg/dL 15 H Urine Blood (Negative) Moderate H Urine Nitrite (Negative) Negative Urine Bilirubin (Negative) Negative Urine Urobilinogen (Up to 0.2) mg/dL 0.2 Ur Leukocyte Esterase (Negative) Small H Urine RBC (0-2) HPF 5-10 H Urine WBC (0-5) HPF 20-50 H Ur Epithelial Cells (Negative) HPF Few Urine Crystals (Negative) HPF Negative Urine Bacteria (Negative) HPF Many Urine Casts (Negative) LPF 0-2 Hyaline Urine Mucus (Negative) Negative Ur Culture Indicated? Yes Urine Glucose (Negative) mg/dL Negative Quality:SDOH Health Related Social Needs: No Data to Display PFSH All Active Problems (Updated 09/10/24 @ 15:21 by RAMO Dale) Urinary tract infection (Acute) Sepsis (Acute) Adrenal adenoma (Acute) Diverticula of colon (Acute) Atelectasis (Acute) Cholelithiasis and acute cholecystitis without obstruction (Acute) Acute cholecystitis (Acute) Medical History Retinal detachment History of kidney cancer Choledocholithiasis with acute cholecystitis with obstruction HTN (hypertension) Cannabis use, uncomplicated Daily consumption of alcohol Former smoker Enlarged prostate Surgical History History of eye surgery History of back surgery H/O endovascular stent graft for abdominal aortic aneurysm Social History Smoking/Tobacco Use Status: Former Tobacco Use Smoking risk assessment performed?: Yes Alcohol Intake: current Alcohol Intake frequency: 0-2 drinks per day Alcohol type: hard liquor Drug use: Daily Substance use type: marijuana Do you feel safe at home: Yes Do you feel safe in your relationship?: Yes
[2024-01-24 12:22] LABS: Absolute Basophil Count 0.04 10^3/uL (0.0-0.2); Basophils % 0.2 %; HCT 37.4 % (40.0-50.0); HGB 12.6 g/dL (13.5-17.5); Immature Grans % 1.8 %; Lymphocytes % 3.9 %; MCH 31.1 pg (27.0-33.0); MCHC 33.7 % (32.0-36.0); MCV 92 fL (80-95); MPV 8.7 fL (8.0-11.0); Monocytes % 5.7 %; Neutrophils % 88.4 %; Platelet Count 169 10^3/uL (130-400); RBC 4.05 10^6/uL (4.36-5.78); RDW 14.5 % (11.8-14.1); RDW-SD 49.1 fL; WBC 22.06 10^3/uL (4.4-10.8)
[2024-01-24 12:26] LABS: Absolute Lymphocyte Count 0.86 10^3/uL (1.2-3.4); Absolute Monocyte Count 1.26 10^3/uL (0.1-0.8)
[2024-01-24 13:05] LABS: ALT 38 U/L (16-63); AST 20 U/L (15-37); Albumin 2.7 g/dL (3.4-5.0); Alkaline Phosphatase 72 U/L (46-116); BUN 47 mg/dL (7-18); Bilirubin, Total 0.58 mg/dL (0.2-1.0); Calcium 9.4 mg/dL (8.5-10.1); Chloride 96 mmol/L (98-107); Estimated GFR 34.38 (mL/min/1.73m2); Glucose 126 mg/dL (74-106); Sodium 133 mmol/L (136-145); Total Protein 6.5 g/dL (6.4-8.2)
[2024-01-24] MEDS: cefTRIAXone 2 GM/50 ML BAG IVPB (13:29)
[2024-01-24 13:40] LABS: Lactate 1.7 mmol/L (0.6-1.4)
[2024-01-24] MEDS: Lidocaine 2% Jelly 6 ML SYR (14:27)
[2024-01-24 14:32] LABS: Procalcitonin 0.9 ng/mL
[2024-01-24 14:40] LABS: Bilirubin Negative (Negative); Blood Moderate (Negative); Clarity Cloudy (Clear); Glucose Negative (Negative); Ketones 15 mg/dL (Negative); Leukocyte Esterase Small (Negative); Nitrite Negative (Negative); Specific Gravity 1.025 (1.005-1.025); Urobilinogen 0.2 mg/dL (Up to 0.2); pH 5.5 (5-8)
--- NOTE | 2024-01-24 14:51 | HPE_ITS ---
Date of service: 01/24/24 Time of Service: 15:17 Assessment and Plan Assessment and plan (1) Urinary tract infection: Status: Acute Assessment and plan: UA positive for UTI Urine Cx pending On ceftriaxone (2) CRYSTAL (acute kidney injury): Status: Acute Assessment and plan: No hydronephrosis Armenta cath in place IVF : LR at 100cc/hr Cr 2.0 baseline 1.4 hold amiloride, losartan , chlorthalidone BMP in AM (3) BPH (benign prostatic hyperplasia): Status: Chronic Assessment and plan: urology consult Armenta On Doxazosin Considering finasteride to be discussed with urology (4) HTN (hypertension): Assessment and plan: On doxazosin home dose , holding other Rx d/t CRYSTAL Close monitoring of VS Discussed Dr. Antoine Qualifiers: Hypertension type: unspecified Qualified Code(s): I10 - Essential (primary) hypertension History of Present Illness History of Present Illness Chief Complaint: Difficulty voiding Narrative: This 73-year-old male patient with a past medical history of enlarged prostate , hypertension on doxazosin, amiloride and losartan, Choledocholelithiasis with cholecystectomy, remote tobacco abuse, recent cannabis use, AAA repair, left BKA presented today at [facility] with complaints of difficulty urinating. Workup in the ED was significant for leukocytosis at 22 without bands, VBG lactate at 1.7, sodium at 133, slight anion gap at 12, a BUN of 47 with a creatinine of 2.0 with baseline around 1.4. UA was positive for leukocyte esterase, white blood cells, blood and hyaline casts. Renal ultrasound was negative for hydronephrosis but right nephrolithiasis was observed as well as an enlarged prostate. Treatment for urine tract infection was initiated with ceftriaxone in the ED. IV fluids were initiated for CRYSTAL. Hospitalist was consulted and the patient admitted to the medical surgical floor for evaluation and management of UTI, CRYSTAL and urology consult. The patient reported last void on Tuesday night followed by inability to void and chills with diarrhea starting today. The patient denied dizziness, headache, chest pain, constipation or any other symptoms. Also reporting being on budesonide for colitis diagnosed by the [facility] s/p colonoscopy starting 30 days ago.The patient also stating that he gets his care through the [facility]. The patient also stating that he is not aware of his history of an large prostate. The patient confirms that he would like CPR. The patient is a full code. Advanced directives to be brought in by daughter. patient denied cardiac history including CHF. Records to be obtained from [facility]. Discussed with Dr. Antoine Review of Systems All systems reviewed & are unremarkable except as noted in HPI and below PFSH All Active Problems (Updated 01/24/24 @ 16:04 by MARTIN AN) BPH (benign prostatic hyperplasia) (Chronic) CRYSTAL (acute kidney injury) (Acute) Urinary tract infection (Acute) Sepsis (Acute) Adrenal adenoma (Acute) Diverticula of colon (Acute) Atelectasis (Acute) Cholelithiasis and acute cholecystitis without obstruction (Acute) Acute cholecystitis (Acute) Medical History Retinal detachment History of kidney cancer Choledocholithiasis with acute cholecystitis with obstruction HTN (hypertension) Cannabis use, uncomplicated Daily consumption of alcohol Former smoker Enlarged prostate Surgical History History of eye surgery History of back surgery H/O endovascular stent graft for abdominal aortic aneurysm Social History Smoking/Tobacco Use Status: Former Tobacco Use Smoking risk assessment performed?: Yes Alcohol Intake: current Alcohol Intake frequency: 0-2 drinks per day Alcohol type: hard liquor Drug use: Daily Substance use type: marijuana Housing: house Do you feel safe at home: Yes Do you feel safe in your relationship?: Yes Meds Allergies and Home Medications Allergies Allergy/AdvReac Type Severity Reaction Status Date / Time No Known Allergies Allergy Unverified 01/24/24 11:44 Home Medications ?Medication ?Instructions ?Recorded ?Confirmed ?Type albuterol sulfate 90 mcg/actuation 2 puff inhalation Q4H PRN PRN 07/31/13 01/24/24 History aerosol inhaler ascorbic acid (vitamin C) 500 mg 500 mg PO DAILY 07/31/13 01/24/24 History tablet (Vitamin C) aspirin 81 mg tablet,delayed 81 mg PO DAILY 07/31/13 01/24/24 History release (Aspir-) diltiazem HCl 300 mg capsule,24 420 mg PO DAILY 07/31/13 01/24/24 History hr,extended release losartan 100 mg tablet 100 mg PO DAILY 07/31/13 01/24/24 History vitamin B complex (Vitamin B-100 1 tab PO DAILY 07/31/13 01/24/24 History Complex tablet) Cacium Magnesium Zinc W/D3 1 tab PO DAILY 12/25/20 01/24/24 History Super Beta Prostate Advanced 1 tab PO DAILY 12/25/20 01/24/24 History amiloride 5 mg tablet 5 mg PO DAILY 12/25/20 01/24/24 History chlorthalidone 50 mg tablet 25 mg PO DAILY 12/25/20 01/24/24 History doxazosin 8 mg tablet 8 mg PO .QHS 12/25/20 01/24/24 History vit C 250 mg-vit E 90 mg-zinc 40 1 tab PO DAILY 12/25/20 01/24/24 History mg-copper 1 [id number] capsule (PreserVision AREDS-2) budesonide 4 mg capsule,delayed 24 mg PO DAILY 01/24/24 01/24/24 History release latanoprost 0.005 % eye drops 1 drp ophthalmic (eye) DAILY 01/24/24 01/24/24 History lidocaine 5 % topical patch 1 patch topical DAILY PRN 01/24/24 01/24/24 History Exam Narrative Exam Narrative: Constitutional The patient is without acute distress Neuro:alert and oriented X4 Resp: Clear lung bilaterally, non-labored Cardio: regular rhythm, S1, S2, no murmur, bilateral radial and dorsalis pedis pulses are positive GI: Abdomen is not distended, soft and non tender, bowel sounds are present : Negative Costovertebral angle tenderness Back/spine/Pelvis: No back tenderness, normal alignment Integumentary: No skin lesions or rash on exposed skin Extremities: strength 5/5 to bilateral lower and upper extremities Psych: RASS 0, congruent mood and normal affect. Results Labs 01/24/24 12:15 01/24/24 12:15 Labs: Laboratory Results - last 24 hr 01/24/24 01/24/24 01/24/24 12:15 13:10 14:32 WBC 22.06 H RBC 4.05 L Hgb 12.6 L Hct 37.4 L MCV 92 MCH 31.1 MCHC 33.7 RDW 14.5 H Plt Count 169 MPV 8.7 Immature Gran % 1.8 Neutrophils % 88.4 Lymphocytes % 3.9 Monocytes % 5.7 Eosinophils % 0.0 Basophils % 0.2 Nucleated RBC % 0.0 Absolute Neutrophils 19.50 H Absolute Lymphocytes 0.86 L Absolute Monocytes 1.26 H Absolute Eosinophils 0.00 Absolute Basophils 0.04 VBG Lactate 1.7 H Sodium 133 L Potassium 4.0 Chloride 96 L Carbon Dioxide 25.0 Anion Gap 12.0 H BUN 47 H Creatinine 2.0 H Est GFR (CKD-EPI 2020) 34.38 Glucose 126 H Calcium 9.4 Total Bilirubin 0.58 AST 20 ALT 38 Alkaline Phosphatase 72 Total Protein 6.5 Albumin 2.7 L Procalcitonin 0.9 Urine Color Yellow Urine Clarity Cloudy Urine pH 5.5 Ur Specific [place] 1.025 Urine Protein 100 H Urine Ketones 15 H Urine Blood Moderate H Urine Nitrite Negative Urine Bilirubin Negative Urine Urobilinogen 0.2 Ur Leukocyte Esterase Small H Urine Glucose Negative Last Vital Signs Temp 36.8 C 01/24/24 14:25 Pulse 58 L 01/24/24 14:25 Resp 14 01/24/24 14:25 BP 135/41 L 01/24/24 14:25 Pulse Ox 97 01/24/24 14:25 Time Spent Time spent with Patient: 55-74 minutes Time was spent: preparing to see the patient(eg.review tests), obtaining and/or reviewing separately otained hiistory, ordering medications,tests, procedures, referring, communicating with other health prompt care rn, indepentently interpreting results, counseling the patient and care coordination
[2024-01-24 14:53] LABS: Bacteria Many HPF (Negative); C & S Indicated? Yes; Casts 0-2 Hyaline LPF (Negative); Crystals Negative HPF (Negative); Epithelial Cells Few HPF (Negative); Mucus Negative (Negative); WBC 20-50 HPF (0-5)
[2024-01-24] MEDS: Normal Saline 1,000 ML 1000 ML IV (15:19)
--- NOTE | 2024-01-24 17:05 | W.PC.ACHO ---
Registration Status: Primary Language: Preferred Language: ED Information & Data Chief Complaint Urinary 01/24/24 11:46 Triage Note patient here with decreased 01/24/24 11:41 urinary output since tuesday. he says it is about a tsp at a time. has never had this happen before. Medical / Surgical History (Last Reviewed 01/24/24 @ 11:07 by Hina Esqueda NP) Retinal detachment History of kidney cancer Choledocholithiasis with acute cholecystitis with obstruction HTN (hypertension) Cannabis use, uncomplicated Daily consumption of alcohol Former smoker Enlarged prostate (Last Reviewed 01/24/24 @ 11:07 by Hina Esqueda NP) History of eye surgery History of back surgery H/O endovascular stent graft for abdominal aortic aneurysm Most Recent Vital Signs Temperature 36.8 C 01/24/24 14:25 Temperature Source Oral 01/24/24 14:25 Pulse 56 L 01/24/24 15:16 Pulse Rhythm Irregular 01/24/24 16:11 Respiratory Rate 14 01/24/24 14:25 Respiratory Effort Normal 01/24/24 16:11 Respiratory Depth Normal 01/24/24 16:11 Respiratory Pattern Normal 01/24/24 16:11 Blood Pressure 128/34 L 01/24/24 15:16 Blood Pressure Mean 66 01/24/24 15:16 Blood Pressure Position Sitting 01/24/24 14:25 Pulse Oximetry 96 01/24/24 15:20 Oxygen Delivery Method Room Air 01/24/24 14:25 Oxygen Flow Rate 0 01/24/24 11:41 Pain Level 5 01/24/24 14:25 Allergies No Known Allergies Allergy (Unverified 01/24/24 11:44) IV IV Catheter Type [Right Saline Lock Antecubital] IV Catheter Gauge [Right 18 Antecubital] Diet Orders Category Date Time Status Heart Healthy Eating [DIET] Nutrition 01/24/24 Dinner Active Diagnostics 01/24/24 01/24/24 01/24/24 Range/Units 14:32 13:10 12:15 WBC 22.06 H (4.4-10.8) 10^3/uL RBC 4.05 L (4.36-5.78) 10^6/uL Hgb 12.6 L (13.5-17.5) g/dL Hct 37.4 L (40.0-50.0) % MCV 92 (80-95) fL MCH 31.1 (27.0-33.0) pg MCHC 33.7 (32.0-36.0) % RDW 14.5 H (11.8-14.1) % Plt Count 169 (130-400) 10^3/uL MPV 8.7 (8.0-11.0) fL Immature Gran % 1.8 % Neutrophils % 88.4 % Lymphocytes % 3.9 % Monocytes % 5.7 % Eosinophils % 0.0 % Basophils % 0.2 % Nucleated RBC % 0.0 (0.0-0.3) % Absolute Neutrophils 19.50 H (1.2-6.7) 10^3/uL Absolute Lymphocytes 0.86 L (1.2-3.4) 10^3/uL Absolute Monocytes 1.26 H (0.1-0.8) 10^3/uL Absolute Eosinophils 0.00 (0.0-0.7) 10^3/uL Absolute Basophils 0.04 (0.0-0.2) 10^3/uL VBG Lactate 1.7 H (0.6-1.4) mmol/L Sodium 133 L (136-145) mmol/L Potassium 4.0 (3.5-5.1) mmol/L Chloride 96 L (98-107) mmol/L Carbon Dioxide 25.0 (21.0-32.0) mmol/L Anion Gap 12.0 H (3-11) mmol/L BUN 47 H (7-18) mg/dL Creatinine 2.0 H (0.70-1.30) mg/dL Est GFR (CKD-EPI 2020) 34.38 (mL/min/1.73m2) Glucose 126 H (74-106) mg/dL Calcium 9.4 (8.5-10.1) mg/dL Total Bilirubin 0.58 (0.2-1.0) mg/dL AST 20 (15-37) U/L ALT 38 (16-63) U/L Alkaline Phosphatase 72 (46-116) U/L Total Protein 6.5 (6.4-8.2) g/dL Albumin 2.7 L (3.4-5.0) g/dL Procalcitonin 0.9 ng/mL Urine Color Yellow (Yellow) Urine Clarity Cloudy (Clear) Urine pH 5.5 (5-8) Ur Specific [place] 1.025 (1.005-1.025) Urine Protein 100 H (Neg-Trace) mg/dL Urine Ketones 15 H (Negative) mg/dL Urine Blood Moderate H (Negative) Urine Nitrite Negative (Negative) Urine Bilirubin Negative (Negative) Urine Urobilinogen 0.2 (Up to 0.2) mg/dL Ur Leukocyte Esterase Small H (Negative) Urine RBC 5-10 H (0-2) HPF Urine WBC 20-50 H (0-5) HPF Ur Epithelial Cells Few (Negative) HPF Urine Crystals Negative (Negative) HPF Urine Bacteria Many (Negative) HPF Urine Casts 0-2 Hyaline (Negative) LPF Urine Mucus Negative (Negative) Ur Culture Indicated? Yes Urine Glucose Negative (Negative) mg/dL 01/24/24 14:32 Urine Culture - Pending Urine - Reflex from Ua 01/24/24 13:20 Blood Culture - Pending Blood 01/24/24 13:10 Blood Culture - Pending Blood Intake and Output - 24 Hour Total 01/24/24 11:37 thru 01/24/24 16:37 Intake Total 1060 Output Total 300 Balance 760 Weight 68.492 kg Intake: IV 1060 Output: Urine 300 Other: Urine Color Light Bibiana Urine Appearance Cloudy Urinary Catheter Urinary Catheter Date of 01/24/24 Insertion [Urethral (Armenta)] Time of insertion [Urethral ( 14:26 Armenta)] Falls Risk Assessment History of Falls No History 01/24/24 16:11 Contributing Factors Impairments 01/24/24 16:11 Ambulatory Aids Independent 01/24/24 16:11 Tubes/Lines W/no contributing factors 01/24/24 16:11 Gait Evaluation W/no contributing factors 01/24/24 16:11 Cognition No cognitive impairment 01/24/24 14:25 Fall Total Score 23 01/24/24 16:11 Level of Risk Standard/Low Risk 01/24/24 16:11 Problems (Last Reviewed 01/24/24 @ 11:07 by Hina Esqueda NP) BPH (benign prostatic hyperplasia) (Chronic) CRYSTAL (acute kidney injury) (Acute) Urinary tract infection (Acute) v v v v v v v v v Sending and/or Receiving Nurses: Please use comment section below to note any information pertinent to the patient hand-off not included above. Information / Comments: Pt arrives via stretcher on unit and went into rm [id number]. Daughter accompanies him. Report received from: Ida Multani
[2024-01-24] MEDS: Enoxaparin 40 MG/0.4 ML SYR SC (17:30)
[2024-01-24] MEDS: Doxazosin 2 MG TAB 8 MG PO (20:02)
[2024-01-24] MEDS: Normal Saline Flush 10 ML SYR IVP (20:02)
[2024-01-24] MEDS: Lactated Ringers 1,000 ML 100 ML IV (21:13)
[2024-01-25 03:13] VITALS: BP 169/73; PULSE 70; RESP 18; TEMP 36.6; O2SAT 94
[2024-01-25 06:22] LABS: Abs Immature Grans 0.21 10^3/uL (0.0-0.06); Absolute Basophil Count 0.02 10^3/uL (0.0-0.2); Absolute Lymphocyte Count 0.52 10^3/uL (1.2-3.4); Absolute Monocyte Count 0.97 10^3/uL (0.1-0.8); Absolute Neutrophil Count 14.95 10^3/uL (1.2-6.7); Basophils % 0.1 %; Eosinophils % 0.1 %; Immature Grans % 1.3 %; Lymphocytes % 3.1 %; MCHC 34.3 % (32.0-36.0); MCV 90 fL (80-95); MPV 9.4 fL (8.0-11.0); Monocytes % 5.8 %; Neutrophils % 89.6 %; Platelet Count 185 10^3/uL (130-400); RBC 3.87 10^6/uL (4.36-5.78); RDW 14.2 % (11.8-14.1); RDW-SD 46.6 fL; WBC 16.68 10^3/uL (4.4-10.8)
[2024-01-25 06:24] LABS: Absolute Eosinophil Count 0.02 10^3/uL (0.0-0.7)
[2024-01-25 06:29] LABS: Anion Gap 10.3 mmol/L (3-11); BUN 31 mg/dL (7-18); CO2 24.7 mmol/L (21.0-32.0); CREATININE 1.5 mg/dL (0.70-1.30); Chloride 97 mmol/L (98-107); Estimated GFR 48.55 (mL/min/1.73m2); Glucose 105 mg/dL (74-106); Magnesium 1.8 mg/dL (1.8-2.4); Potassium 3.6 mmol/L (3.5-5.1); Sodium 132 mmol/L (136-145)
[2024-01-25] MEDS: Lactated Ringers 1,000 ML 100 ML IV (06:35)
[2024-01-25 07:34] VITALS: BP 194/73; PULSE 73; RESP 18; TEMP 37.2; O2SAT 97
[2024-01-25] MEDS: dilTIAZem CD 300 MG CAPCR PO (08:11)
[2024-01-25] MEDS: Ascorbic Acid 500 MG TAB PO (08:11)
[2024-01-25] MEDS: Aspirin E.C. 81 MG TABEC PO (08:11)
[2024-01-25] MEDS: Vitamins B Comp w/C TAB 1 TAB PO (08:12)
[2024-01-25] MEDS: Normal Saline Flush 10 ML SYR IVP ×2 (08:12→20:31)
[2024-01-25] MEDS: dilTIAZem CD 120 MG CAPCR PO (08:12)
--- NOTE | 2024-01-25 09:33 | PGE_ITS ---
Date of Service Date of service: 01/25/24 Time of Service: 09:33 Assessment and Plan Assessment and plan (1) Urinary tract infection: Status: Acute Assessment and plan: UA positive for UTI - not meeting criteria for sepsis WBC 22 on admission now 16, afebrile Urine Cx showed E. coli and Blood Cx: results pending Continue ceftriaxone (2) CRYSTAL (acute kidney injury): Status: Acute Assessment and plan: Resolving No hydronephrosis Braga cath in place Cr 2.0 on admission now 1.5 with baseline around 1.4 Resume amiloride and losartan , hold chlorthalidone until 9 BMP in AM (3) BPH (benign prostatic hyperplasia): Status: Chronic Assessment and plan: Urology consult -pending will discuss tamsulosin VS doxazosin and addition of finasteride, intermittent catheterisms at home VS short term braga and agent and lenght of treatment for UTI complicated VS uncomplicated and f/u Continue Braga continue home dose Doxazosin (4) HTN (hypertension): Assessment and plan: On doxazosin home dose , amiloride, losartan and chlorthalidone held on admission d/t CRYSTAL Improving Cr at 1.5 Resuming amiloride, losartan Qualifiers: Hypertension type: unspecified Qualified Code(s): I10 - Essential (primary) hypertension (5) Hx of BKA: Status: Acute Assessment and plan: prosthesis in room -PT consult (6) On deep vein thrombosis (DVT) prophylaxis: Status: Acute Assessment and plan: On Lovenox (7) Discharge planning issues: Status: Acute Assessment and plan: Home when medically stable Discussed Dr. Antoine Subjective Subjective Patient reports: feels better, tolerating liquids well, tolerating a regular diet, voiding w/o difficulty (braga), bowel movement and other (hemorrhoidal bleeding-with BM); denies diarrhea, nausea, vomiting, shortness of breath or fever Exam Narrative Exam Narrative: Constitutional: Siting in chair, w/o distress Neuro:alert and oriented X4 Resp: Clear lung bilaterally, non-labored Cardio: regular rhythm, S1, S2 GI: Abdomen is not distended, soft and non tender, bowel sounds are present : Negative Costovertebral angle tenderness Extremities: strength 5/5 to bilateral lower and upper extremities Psych: RASS 0, congruent mood and normal affect. Objective Last Vital Signs Temp 37.2 C 01/25/24 07:34 Pulse 73 01/25/24 07:34 Resp 18 01/25/24 07:34 BP 194/73 H 01/25/24 07:34 Pulse Ox 97 01/25/24 07:34 Laboratory Results - last 24 hr 01/24/24 01/24/24 01/24/24 12:15 13:10 14:32 WBC 22.06 H RBC 4.05 L Hgb 12.6 L Hct 37.4 L MCV 92 MCH 31.1 MCHC 33.7 RDW 14.5 H Plt Count 169 MPV 8.7 Immature Gran % 1.8 Neutrophils % 88.4 Lymphocytes % 3.9 Monocytes % 5.7 Eosinophils % 0.0 Basophils % 0.2 Nucleated RBC % 0.0 Absolute Neutrophils 19.50 H Absolute Lymphocytes 0.86 L Absolute Monocytes 1.26 H Absolute Eosinophils 0.00 Absolute Basophils 0.04 VBG Lactate 1.7 H Sodium 133 L Potassium 4.0 Chloride 96 L Carbon Dioxide 25.0 Anion Gap 12.0 H BUN 47 H Creatinine 2.0 H Est GFR (CKD-EPI 2020) 34.38 Glucose 126 H Calcium 9.4 Magnesium Total Bilirubin 0.58 AST 20 ALT 38 Alkaline Phosphatase 72 Total Protein 6.5 Albumin 2.7 L Procalcitonin 0.9 Urine Color Yellow Urine Clarity Cloudy Urine pH 5.5 Ur Specific [place] 1.025 Urine Protein 100 H Urine Ketones 15 H Urine Blood Moderate H Urine Nitrite Negative Urine Bilirubin Negative Urine Urobilinogen 0.2 Ur Leukocyte Esterase Small H Urine RBC 5-10 H Urine WBC 20-50 H Ur Epithelial Cells Few Urine Crystals Negative Urine Bacteria Many Urine Casts 0-2 Hyaline Urine Mucus Negative Ur Culture Indicated? Yes Urine Glucose Negative 01/25/24 06:00 WBC 16.68 H RBC 3.87 L Hgb 12.0 L Hct 35.0 L MCV 90 MCH 31.0 MCHC 34.3 RDW 14.2 H Plt Count 185 MPV 9.4 Immature Gran % 1.3 Neutrophils % 89.6 Lymphocytes % 3.1 Monocytes % 5.8 Eosinophils % 0.1 Basophils % 0.1 Nucleated RBC % 0.0 Absolute Neutrophils 14.95 H Absolute Lymphocytes 0.52 L Absolute Monocytes 0.97 H Absolute Eosinophils 0.02 Absolute Basophils 0.02 VBG Lactate Sodium 132 L Potassium 3.6 Chloride 97 L Carbon Dioxide 24.7 Anion Gap 10.3 BUN 31 H Creatinine 1.5 H Est GFR (CKD-EPI 2020) 48.55 Glucose 105 Calcium 9.0 Magnesium 1.8 Total Bilirubin AST ALT Alkaline Phosphatase Total Protein Albumin Procalcitonin Urine Color Urine Clarity Urine pH Ur Specific [place] Urine Protein Urine Ketones Urine Blood Urine Nitrite Urine Bilirubin Urine Urobilinogen Ur Leukocyte Esterase Urine RBC Urine WBC Ur Epithelial Cells Urine Crystals Urine Bacteria Urine Casts Urine Mucus Ur Culture Indicated? Urine Glucose Time Spent with Patient Time Spent with Patient: >50 minutes Time was spent: preparing to see the patient(eg.review tests), obtaining and/or reviewing separately otained hiistory, ordering medications,tests, procedures, referring, communicating with other health pediatric care coordinator, indepentently interpreting results, counseling the patient and care coordination
[2024-01-25] MEDS: Losartan 50 MG TAB 100 MG PO (10:06)
[2024-01-25] MEDS: Chlorthalidone 25 MG TAB PO (10:06)
[2024-01-25] MEDS: aMILoride HCL 5 MG TAB PO (10:06)
[2024-01-25 11:13] VITALS: BP 164/66; PULSE 70; RESP 17; TEMP 37; O2SAT 96
[2024-01-25] MEDS: cefTRIAXone 2 GM/50 ML BAG IVPB (12:04)
--- NOTE | 2024-01-25 12:16 | PHA.REVIEW2 ---
Pharmacy Admission Review Admission Clinical Review Admission Pharmacy Review: CRYSTAL (acute kidney injury) (Acute) Urinary tract infection (Acute) No Known Allergies Allergy (Unverified 01/24/24 11:44) Resuscitation Status Full Code Height 5 ft 8 in Weight 68.492 kg Pharmacy Admission Review Renal Dosing Renal Dosing: BUN 31 mg/dL (7-18) H 01/25/24 06:00 Creatinine 1.5 mg/dL (0.70-1.30) H 01/25/24 06:00 Medications needing adjustments: Reviewed (CrCl 41.86 mL/min, BUN decreased from 47 and SCr decreased from 2) List of meds needing interventions: Current medications are okay Anticoagulation Anticoagulation: Hgb 12.0 g/dL (13.5-17.5) L 01/25/24 06:00 Hct 35.0 % (40.0-50.0) L 01/25/24 06:00 Plt Count 185 10^3/uL (130-400) 01/25/24 06:00 Creatinine 1.5 mg/dL (0.70-1.30) H 01/25/24 06:00 DVT Prophylaxis: Reviewed (Hgb decreased from 12.6) Medications: Enoxaparin (40mg daily) Relevant Labs Relevant Labs: Sodium 132 mmol/L (136-145) L 01/25/24 06:00 Potassium 3.6 mmol/L (3.5-5.1) 01/25/24 06:00 Chloride 97 mmol/L (98-107) L 01/25/24 06:00 Magnesium 1.8 mg/dL (1.8-2.4) 01/25/24 06:00 Electrolytes, C-Reactive P, ESR: Reviewed (Na 132) Cardiac Review Cardiac Review: Blood Pressure 164/66 1113 Blood Pressure 194/73 0734 Blood Pressure 169/73 0313 BP, HR, EF%: Reviewed (HR WNL) List meds needing interventions: Patient is on amiloride 5mg daily, chlorthalidone 25mg daily, diltiazem 420mg daily and losartan 100mg daily QTc Review QTc: Reviewed (No EKG on file) IV to PO Switch IV Medications: Reviewed (ceftriaxone) Home Meds Home Med List reviewed: Intervened Relevent Home Meds Not ordered & why?: Patient recently filled lidocaine 5% patches but was not on home med list. Called nursing who spoke with patient. Per patient, uses as needed and did not currently have one on (confirmed by nursing). Added to home med list and added comment that patient uses as needed. Home med list had budesonide 24mg daily, I left order pending due to large quantity. Daughter confirmed that patient takes 9mg (3 3mg capsules) daily. I corrected order and updated home med list. 2 orders put in as patients own - for supplements. These were brought in by family and nursing brought down to pharmacy. Verified, labeled and sent back to floor. 1 bottle was kept in patients own [facility] as there was no order for it. Current Meds Current Medication Order Review: Intervened Comments: Added 2nd PRN to APAP per pharmacy protocol Changed timing of enoxaparin to be on even hour per pharmacy protocol Pharmacy Antibiotic Review Relevant Labs: Relevant Labs 01/24/24 13:10 Procalcitonin 0.9 WBC 16.68 10^3/uL (4.4-10.8) H 01/25/24 06:00 Procalcitonin 0.9 ng/mL 01/24/24 13:10 Temperature 37.0 C Temperature 37.2 C Temperature 36.6 C Microbiology 01/24/24 14:32 Urine Culture - Preliminary Urine - Reflex from Ua Escherichia coli Pharmacy Antibiotic Activity: C/S review and Reviewed, no change Comments: Patient is on ceftriaxone 2g q24h, day 2, for UTI. Reached out to provider as recommended dose for UTI is 1g q24h, waiting to hear back. 1 time dose given in ED and no order was put in for continued doses. Reached out to provider who then put in q24h order. Blood cultures pending. WBC decreased from 22.06
[2024-01-25 15:00] VITALS: BP 160/61; PULSE 69; RESP 18; TEMP 37.4; O2SAT 98
--- NOTE | 2024-01-25 15:32 | INITIAL_ITS ---
Date of service: 01/25/24 Time of Service: 15:32 Care Management Initial Assmt Initial Assessment Reason for Hospitalization: UTI, CRYSTAL Functional Status/Living Situation Patient Presentation: Joseph was sitting up in his chair, enjoying lunch. He was pleasant in interaction and forthcoming with information. He shared that he retired in 2011 and really enjoys snowmobiling, 4 wheeling and [place] with a hunting camp. Joseph also shares that his of 55 years five months ago-a month from her 69th birthday-at home from a heart attack. His daughter is very supportive and helps with managing groceries and meals and household needs. Joseph shared positive remarks about his care and his stay and reported he would be ready to return home when ready. He verbalized understanding of treatment plan and anticipates staying overnight. Town of Residence: [facility] Resides with: Alone Natural Supports: Children Employment Status: Retired Instrumental Activities of Daily Living (ADLs): Independent Activities/Hobbies/SocialSupport: snowmobiling, 4 wheeling and [place] land [place] [address] [place] with a hunting camp Medications Medication Management: No Issues/Barriers identified Advance Directives Advance Directives: Do you have an Advance Directive: N 02/07/13 10:47 AD On File at [facility]: N 07/27/12 08:22 Date Asked 01/24/24 01/24/24 16:10 AD Date Reviewed COLST On File at [facility] COLST Date Scanned Code Status Resuscitation Status Full Code Insurance Coverage/Financial Issues Insurance: [facility] Care Team Visit Care Team Role Provider Type Unknown Unknown Primary Care Provider STAFF PHYSICIAN InPatient Jac Gonzales Other Providers OTHER Yunier Onofre MD Other Providers [facility] STAFF PHYSICIAN RAMO Dale Emergency Provider [facility] Wilfrid Antoine MD Admit Provider [facility] STAFF PHYSICIAN Attending Provider Discharge Anticipated Barriers to Discharge: None Identified Patient/Family Education Needs: Review discharge instructions, discuss Ask Me Three Transportation: Private vehicle (with family. ) Plan: Joseph will return home with no additional services anticipated, he will follow up with his PCP and plan of care and transport via private vehicle with family- likely his daughter. PFSH All Active Problems (Updated 01/25/24 @ 12:40 by Patti Murphy APRN) Discharge planning issues (Acute) On deep vein thrombosis (DVT) prophylaxis (Acute) Hx of BKA (Acute) BPH (benign prostatic hyperplasia) (Chronic) CRYSTAL (acute kidney injury) (Acute) Urinary tract infection (Acute) Sepsis (Acute) Adrenal adenoma (Acute) Diverticula of colon (Acute) Atelectasis (Acute) Cholelithiasis and acute cholecystitis without obstruction (Acute) Acute cholecystitis (Acute) Medical History Retinal detachment History of kidney cancer Choledocholithiasis with acute cholecystitis with obstruction HTN (hypertension) Cannabis use, uncomplicated Daily consumption of alcohol Former smoker Enlarged prostate Surgical History History of eye surgery History of back surgery H/O endovascular stent graft for abdominal aortic aneurysm Social History Smoking/Tobacco Use Status: Former Tobacco Use Smoking risk assessment performed?: Yes Alcohol Intake: current Alcohol Intake frequency: 0-2 drinks per day Alcohol type: hard liquor Drug use: Daily Substance use type: marijuana Housing: house Do you feel safe at home: Yes Do you feel safe in your relationship?: Yes SDOH(Care Management) Screening Will the Patient Participate in the Screening?: Yes Do you worry about having a steady place to live?: no Problems where you live: no known problems In the past 12 months, have you had to go without electric, gas, oil or water in your home?: no Have you or anyone in your house had to go without enough food to eat?: no Has lack of transportation kept you from medical appointments or from doing things needed for daily living?: no Has anyone in your support network made you feel unsafe for any reason?: no Health Related Social Needs Health related social needs: problem related to primary support group(Z63.9) (recent of life long spouse )
--- NOTE | 2024-01-25 16:44 | CHAPLAIN ---
Hannah was up in a chair when I visited. He said he was tired because hadn't slept well last night as he was missing the nasal strips he usually uses. His daughter is bringing them if for him today so he's looking forward to a better night's rest. He shared some personal history. I explained my role and offered support.
[2024-01-25] MEDS: Enoxaparin 40 MG/0.4 ML SYR SC (17:08)
[2024-01-25 20:26] VITALS: BP 185/64; PULSE 68; RESP 15; TEMP 37.1; O2SAT 97
[2024-01-25] MEDS: Doxazosin 2 MG TAB 8 MG PO (20:30)
[2024-01-25] MEDS: Latanoprost 0.005% 2.5 ML BTL OP (20:34)
[2024-01-25 23:30] VITALS: BP 172/81; PULSE 60; RESP 18; TEMP 36.7; O2SAT 96
[2024-01-26 03:05] VITALS: BP 156/64; PULSE 60; RESP 18; TEMP 37; O2SAT 95
[2024-01-26] MEDS: Aspirin E.C. 81 MG TABEC PO (08:54)
[2024-01-26] MEDS: Normal Saline Flush 10 ML SYR IVP (08:54)
[2024-01-26] MEDS: dilTIAZem CD 120 MG CAPCR PO (08:55)
[2024-01-26] MEDS: dilTIAZem CD 300 MG CAPCR PO (08:55)
[2024-01-26] MEDS: Chlorthalidone 25 MG TAB PO (08:58)
[2024-01-26] MEDS: aMILoride HCL 5 MG TAB PO (08:59)
[2024-01-26] MEDS: Vitamins B Comp w/C TAB 1 TAB PO (08:59)
[2024-01-26 09:00] VITALS: BP 172/59; PULSE 59; RESP 15; TEMP 36.7; O2SAT 97
[2024-01-26 09:00] LABS: Anion Gap 8.4 mmol/L (3-11); BUN 24 mg/dL (7-18); CO2 26.6 mmol/L (21.0-32.0); CREATININE 1.4 mg/dL (0.70-1.30); Calcium 9.2 mg/dL (8.5-10.1); Chloride 100 mmol/L (98-107); Estimated GFR 52.74 (mL/min/1.73m2); Glucose 117 mg/dL (74-106); Potassium 3.6 mmol/L (3.5-5.1); Sodium 135 mmol/L (136-145)
--- NOTE | 2024-01-26 10:14 | W.UROLOGYCON ---
Date of service: 01/26/24 Time of Service: 16:00 Assessment and Plan Assessment and plan (1) Urinary tract infection: Status: Acute Assessment and plan: [facility] this [facility] With his history indicating kidney cancer I suspect that he has had multiple previous imaging studies of his kidneys even though this is our first study at our facility. I will attempt to get a hold of his [facility]rology records from the [facility] to help decide if any additional imaging would be useful. In fact, the patient has an upcoming imaging study in February which can be compared with our study if the images are pushed [facility] to the [facility]. In any event, there is nothing to indicate that this gentleman requires an emergent drainage type procedure. Adjusting his antibiotics based on the culture and sensitivity by the most appropriate treatment right now. He is already on an alpha-aristides so I think it is quite reasonable to add in a 5 alpha reductase inhibitor given his new development of urinary retention. When he is able to be discharged, unfortunately I cannot make a follow-up appointment for him to be seen in our clinic. He would need to see his [facility] provider first. Any referral for outpatient care in our clinic would need to come from his [facility] provider. History of Present Illness History of Present Illness Chief Complaint: UTI Narrative: This is a 73-year-old gentleman who generally receives his medical care through the [facility] [place]. He has a history of renal cell carcinoma and was treated with a partial nephrectomy. He is routinely followed with imaging studies at the [facility]. There has been no evidence of recurrence or metastasis of his tumor. He presented to our emergency department with an inability to urinate. He was found to have a urinary tract infection. He has been treated with broad-spectrum antibiotics and placement of a Armenta catheter. He has been on an alpha-aristides routinely, but he tells me that the alpha-aristides was being used for his blood pressure rather than his prostate. He does not recall ever having had a catheter in the past. He has no episodes of retention in the past. He has not had any type of cystoscopic procedures He was not having any significant constipation prior to developing retention. He has no known neurologic disorders. He has no numbness or tingling in the pelvis or down his leg. He is urine culture ultimately grew pansensitive E. coli. His Armenta catheter has been removed and he has been able to void this afternoon. His bladder scan here at the bedside shows a volume of about 200 cc. He is currently comfortable with no suprapubic discomfort. He did have some burning when he voided today, but his catheter has just recently been removed. Review of Systems Narrative: He has no fever or chills He has no chest pain or palpitations He has no nausea, vomiting or constipation He has no cough or sputum production He has no known bleeding disorders or anemia PFSH All Active Problems (Updated 01/27/24 @ 00:05 by MARTIN AN) Hx of BKA (Acute) BPH (benign prostatic hyperplasia) (Chronic) Urinary tract infection (Acute) Sepsis (Acute) Adrenal adenoma (Acute) Diverticula of colon (Acute) Atelectasis (Acute) Cholelithiasis and acute cholecystitis without obstruction (Acute) Acute cholecystitis (Acute) Medical History Retinal detachment History of kidney cancer Choledocholithiasis with acute cholecystitis with obstruction HTN (hypertension) Cannabis use, uncomplicated Daily consumption of alcohol Former smoker Enlarged prostate Surgical History History of eye surgery History of back surgery H/O endovascular stent graft for abdominal aortic aneurysm Social History Smoking/Tobacco Use Status: Former Tobacco Use Smoking risk assessment performed?: Yes Alcohol Intake: current Alcohol Intake frequency: 0-2 drinks per day Alcohol type: hard liquor Drug use: Daily Substance use type: marijuana Housing: house Do you feel safe at home: Yes Do you feel safe in your relationship?: Yes Exam Narrative Exam Narrative: He is a very pleasant gentleman in no obvious distress His vital signs are documented elsewhere He is awake and alert I reviewed his renal ultrasound on the PACS system. I do not see any evidence of hydronephrosis or a perinephric abscess. Results Last Vital Signs Temp 36.7 C 01/26/24 09:00 Pulse 59 L 01/26/24 09:00 Resp 15 01/26/24 09:00 BP 172/59 H 01/26/24 09:00 Pulse Ox 97 01/26/24 09:00 Labs 01/26/24 06:00 01/26/24 06:00
[2024-01-26 10:20] LABS: Abs Immature Grans 0.09 10^3/uL (0.0-0.06); Absolute Basophil Count 0.02 10^3/uL (0.0-0.2); Absolute Eosinophil Count 0.04 10^3/uL (0.0-0.7); Absolute Lymphocyte Count 0.69 10^3/uL (1.2-3.4); Basophils % 0.2 %; Eosinophils % 0.3 %; HCT 38.2 % (40.0-50.0); HGB 13.3 g/dL (13.5-17.5); Immature Grans % 0.7 %; Lymphocytes % 5.7 %; MCHC 34.8 % (32.0-36.0); MCV 89 fL (80-95); MPV 9.2 fL (8.0-11.0); Monocytes % 7.2 %; Neutrophils % 85.9 %; Platelet Count 248 10^3/uL (130-400); RBC 4.29 10^6/uL (4.36-5.78); RDW 14.2 % (11.8-14.1); RDW-SD 45.9 fL; WBC 12.02 10^3/uL (4.4-10.8)
--- NOTE | 2024-01-26 10:54 | PT.INIE ---
PT Notes Visit Reasons: UTI, CRYSTAL Inpatient Physical Therapy Evaluation Date: 01/26/2024 Referring Doctor: Patti Murphy PT Orders: PT CONSULT: Evaluation for assistive device Precautions: Standard, Braga catheter, IV Patient Profile/Admitting Diagnosis: This 73-year-old male patient with a past medical history of enlarged prostate , hypertension on doxazosin, amiloride and losartan, Choledocholelithiasis with cholecystectomy, remote tobacco abuse, recent cannabis use, AAA repair, left BKA presented today at [facility] with complaints of difficulty urinating. Workup in the ED was significant for leukocytosis at 22 without bands, VBG lactate at 1.7, sodium at 133, slight anion gap at 12, a BUN of 47 with a creatinine of 2.0 with baseline around 1.4. UA was positive for leukocyte esterase, white blood cells, blood and hyaline casts. Renal ultrasound was negative for hydronephrosis but right nephrolithiasis was observed as well as an enlarged prostate. Treatment for urine tract infection was initiated with ceftriaxone in the ED. IV fluids were initiated for CRYSTAL. Hospitalist was consulted and the patient admitted to the medical surgical floor for evaluation and management of UTI, CRYSTAL and urology consult.PT consult placed for safe ambulation. PMHX: BPH (benign prostatic hyperplasia) (Chronic) CRYSTAL (acute kidney injury) (Acute) Urinary tract infection (Acute) Sepsis (Acute) Adrenal adenoma (Acute) Diverticula of colon (Acute) Atelectasis (Acute) Cholelithiasis and acute cholecystitis without obstruction (Acute) Acute cholecystitis (Acute) Medical History Retinal detachment History of kidney cancer Choledocholithiasis with acute cholecystitis with obstruction HTN (hypertension) Cannabis use, uncomplicated Daily consumption of alcohol Former smoker Enlarged prostate Surgical History History of eye surgery History of back surgery H/O endovascular stent graft for abdominal aortic aneurysm Social History/Home Situation: lives alone no steps to enter and a flight to 2nd floor which he does not use. Bed room and bathroom on 1st floor. Dtr assists with transportation and is involved Equipment Owned/DME: 4WW, R BKA prosthesis, scooter Subjective: Pt reports he has had a prosthetic since 1968 although this is a new one from 6 months ago. Objective: [] General Observation:pt seated in bed side chair braga catheter to bedside drainage, Daughter present. Pt agreeable to participate in evaluation and motivated and eager to put his prosthetic on. Mental Status:A+ O x 3, Pain: denies Vital Signs:monitored by Nursing ROM: Right Upper Extremity: WNL Left Upper Extremity: WNL Right Lower Extremity: hip and knee WNL ankle NT d/t BKA ; short residual limb Left Lower Extremity: WNL Strength: Right Upper Extremity:5/5 Left Upper Extremity: 5/5 Right Lower Extremity: hipflexion 4-/5 , hip extension 4-/5, hip abduction 3+/5 knee 3+/5 Left Lower Extremity:4/5 Sensation: intact to touch although diminished to right foot Prosthetic Management: Independent donning/doffing PTB Righr BKA prosthesis 6 ply with insert and thigh suspension sleeve. Bed Mobility/Transfers: Independent bed mobility and transfers sit to /from stand Bed to from chair CGA with Left BKA prosthesis without device Gait: CGA with Left BKA prosthesis without device , 120 feet stagger steps intermittently wide STAN, decreased knee flexion left, Balance: [] Static Sitting: Normal Dynamic Sitting: Normal Static Standing: Fair Dynamic Standing: Fair minus Special Tests: Mobility Limitations Standardized Measure [facility] AM-PAC 6 clicks Basic Mobility Inpatient Short Form: Raw Score: 22 CMS Score: 20.91% disability Informed Consent/Education: Patient instructed in purpose of PT consult and plan of care. Patient's daughter educated on how to adjust height of four-wheel walker as patient reports increased back pain from bending over. Patient encouraged to utilize walker for stability and increase activity tolerance/pacing as four-wheel walker will provide sit rest as needed. Assessment: Patient is a 73 year old male referred to physical therapy services with the diagnosis of UTI/CRYSTAL. Patient demonstrates ability to don and doff prosthetic independently. Demonstrates impaired balance reactions and standing, increased LUCAS in standing requiring stand rest after 50 feet. Patient demonstrates gait instability declines use of front wheel walker within facility at this time despite having 4 wheeled walker at home. Patient presents with clinical signs and symptoms consistent with admitting diagnosis, as demonstrated by the following impairment level findings: 1. Decreased strength BLE major muscle groups 2. Impaired standing balance 3. Impaired activity tolerance Impairments are contributing to the following functional limitations: 1. AMPAC score. 2. Declining functional transfers skills 3. Difficulty with ambulation without physical assistance 4. Increased completion time for mobility/ADL performance 5. Increased risk for falls Patient is assessed as a Low 67059 complexity based on the following: History: 73-year-old male with past medical history as indicated above Examination: Demonstrates impairment in strength, balance, and mobility level with underlying impairments and functional limitations as stated above as well as deficits score of 20.91% utilizing the [facility] AM-PAC mobility inpatient Short form. Presentation: Stable Decision Making: Low Goals: Goals X1 week 1. Bed-Chair independent 2. Chair-Bedindependent 3. Gait modified independent with wheeled walker 150 feet with stand rests for pacing 4. Improve balance in standing with left prosthetic to good Plan of Care/Treatment Plan: 1-2x/day, 7 days/week x 1 week. Plan of care has been reviewed with the [employer] SEATER providing the service under Physical Therapy direction. Initiate Physical Therapy intervention for strengthening, bed mobility, transfers, gait, stairs, balance training, use of assistive device. DISCHARGE RECOMMENDATIONS: [] [] Home with no services [] [X] Home with services HH PT for assessment of 4WW safety within home [] Home with outpatient PT [] [] SNF for continued rehabilitation [] [] Assisted Care [] [] SNF versus LTC based on ability to participate and progress [] TREATMENT CODE/TIME:23577 Please sign an return this page within 30 days if you agree with the above POC. Thank you! Physician Signature Date [facility]
[2024-01-26 11:14] VITALS: BP 171/67; PULSE 68; RESP 17; TEMP 36.4; O2SAT 98
--- NOTE | 2024-01-26 11:21 | W.PM.DS.N ---
Date of service: 01/26/24 Time of Service: 11:22 DS: Diagnosis Discharge Diagnosis (1) Urinary tract infection: Status: Acute Discharge Plan Disposition Patient Disposition: Home W/Home Health Services Condition: Improving Discharge Details Reason For Visit: UTI, CRYSTAL Admit Date/Time: 01/24/24 15:17 Admit Provider: Wilfrid Antoine Attending Provider: Wilfrid Antoine Primary Care Provider: Unknown,Unknown Hospital Course Hospital Course: This 73 years old male patient with past medical history of enlarged prostate, hypertension on doxazosin, amiloride and losartan, Choledyl cholelithiasis with cholecystectomy, remote tobacco abuse, recent cannabis use, AAA repair, kusum neoplasm, left BKA presented on 01/24/2024 at [facility] with complaints of difficulty urinating. Workup in the ED showed significant leukocytosis, a lactate of 1.7 and a sodium of 133 BUN of 47 with a creatinine of 2.0 with a baseline around 1.4. UA was positive for UTI with leukocyte esterase, white blood cells, blood and hyaline casts. Renal ultrasound was negative for hydronephrosis but right nephrolithiasis was observed as well as an enlarged prostate. In the ED the patient was treated with IV ceftriaxone as well as IV fluids. Armenta catheter was also inserted in the ED. The hospitalist was consulted and the patient was admitted to the medical surgical floor for evaluation and management of UTI CRYSTAL and urology consult. During the stay the patient continued to be treated with IV ceftriaxone and IVF fluids. Losartan,amiloride, and chlorathalidone initially held for acute kidney injury.Creatinine went down - around baseline at 1.4. Urine culture grew pansensitive E. coli and blood cultures remained negative. The patient will be discharged home on cephalexin 500mg orally four times a day for [address] Onofre completed the urology consult with the following recommendations: Intermittent straight catheterization if the patient is still unable to void. As discussed, Finasteride was added to the patient's medicine regimen. Creatinine went down to around baseline at 1.4 The indwelling urinary catheter was discontinued and the patient was able to void. Bladder scan was delayed by approximately 2 hours resulted in a volume of 220 ml. The patient had most likely less than 200ml of post-void residual at the time of the micturition. Therefore the patient will not need to self- catheterize at home. If void for 12 hours despite adequate oral hydration or inability to void despite urges, the patient should contact his primary care practitioner. Physical recommendation from physical therapy is for home with home health for assessment of 4 wheel walker safety within home. The patient will need to follow-up with primary care practitioner from the [facility] within 7 days of discharge. Recommendation to follow up with urology from the [facility] system or here at [facility] with referral from the PCP for outpatient care clinic as per patient discussion with PCP. Discussed with Dr. Antoine. Home Meds and New Rx's Prescriptions: New cephalexin 500 mg Capsule 500 mg PO QID Qty: 27 0RF finasteride 5 mg Tablet 5 mg PO DAILY Qty: 30 0RF Continued albuterol sulfate 8.5 GM HFA aerosol inhaler 2 puff Inhalation Q4H PRN PRN diltiazem HCl 300 MG capsule,extended release 24 hr 420 mg PO DAILY ascorbic acid (vitamin C) [Vitamin C] 500 MG tablet 500 mg PO DAILY vitamin B complex [Vitamin B-100 Complex] 1 EACH tablet 1 tab PO DAILY losartan 100 MG tablet 100 mg PO DAILY aspirin [Aspir-81] 81 MG tablet,delayed release (DR/EC) 81 mg PO DAILY chlorthalidone 50 mg tablet 25 mg PO DAILY amiloride 5 mg tablet 5 mg PO DAILY doxazosin 8 mg tablet 8 mg PO .HS PreserVision AREDS-2 250-90-40-1 mg Capsule 1 tab PO DAILY Cacium Magnesium Zinc W/D3 1 tab PO DAILY Super Beta Prostate Advanced 1 tab PO DAILY latanoprost 0.005 % drops 1 drp ophthalmic (eye) DAILY budesonide 4 mg capsule,delayed release(DR/EC) 9 mg PO DAILY lidocaine 5 % adhesive patch,medicated 1 patch topical DAILY PRN Discharge Instructions Stand Alone Forms: Nursing Discharge Form Referrals: Unknown,Unknown [Primary Care Provider] - (Call your primary care provider for a follow-up appointment within 7 days of discharge ) Activity:: Activity as Tolerated Equipment/Supplies:: No Equipment Needed Diet:: heart healthy DS: Summary Time Spent with Patient providing and/or coordinating discharge services: Greater than 30 minutes Status at Discharge Functional status at discharge: uses cane/walker Overall status at discharge: patient is progressing back to baseline Mental Status: mental status grossly normal Speech and Movement: speech and movement normal Mood: congruent mood Affect: normal affect Quality:SDOH Health Related Social Needs: Health related social needs personal safety Exam Narrative Exam Narrative: Constitutional: Siting in chair, w/o distress Neuro:alert and oriented X4 Resp: Clear lung bilaterally, non-labored Cardio: regular rhythm, S1, S2 GI: Abdomen is not distended, soft and non tender, bowel sounds are present : Negative Costovertebral angle tenderness Psych: RASS 0, congruent mood and normal affect. Psych Mental Status: mental status grossly normal Speech and Movement: speech and movement normal Mood: congruent mood Affect: normal affect DS: Data Vitals/I&O Vitals and I&O: Vital Signs Temperature 36.4 C L 01/26/24 11:14 Temperature Source Temporal Artery Scan 01/26/24 11:14 Pulse 68 01/26/24 11:14 Pulse Rhythm Irregular 01/24/24 16:11 Respiratory Rate 17 01/26/24 11:14 Respiratory Effort Normal 01/24/24 16:11 Respiratory Depth Normal 01/24/24 16:11 Respiratory Pattern Normal 01/24/24 16:11 Blood Pressure 171/67 H 01/26/24 11:14 Blood Pressure Mean 66 01/24/24 15:16 Blood Pressure Position Sitting 01/24/24 14:25 Pulse Oximetry 98 01/26/24 11:14 Oxygen Delivery Method Room Air 01/26/24 11:14 Oxygen Flow Rate 0 01/26/24 11:14 Pain Level 0 01/26/24 11:14 Comment RN notified of bp 01/26/24 11:14 Intake & Output 01/25/24 01/25/24 01/26/24 11:59 23:59 11:59 Intake Total 1266.667 / 1276.667 1276.667 220 / 220 Output Total 1850 / 3350 1500 / 3350 Balance -583.333 / -2073.333 -1490 / -2073.333 220 / 220 Intake: IV 1266.667 / 1276.667 10 / 1276.667 Oral 220 / 220 Output: Urine 1850 / 3350 1500 / 3350 Other: Urine Color Yellow Yellow Urine Appearance Clear Sediment Sediment Comment foul odor noted Stool Size Small Stool Characteristics Soft Data Completed and Pending Labs on day of discharge: Labs from last 24 hours 01/26/24 05:35 WBC Pending RBC Pending Hgb Pending Hct Pending MCV Pending MCH Pending MCHC Pending RDW Pending Plt Count Pending MPV Pending Immature Gran % Pending Neutrophils % Pending Lymphocytes % Pending Monocytes % Pending Eosinophils % Pending Basophils % Pending Absolute Neutrophils Pending Absolute Lymphocytes Pending Absolute Monocytes Pending Absolute Eosinophils Pending Absolute Basophils Pending Sodium Pending Potassium Pending Chloride Pending Carbon Dioxide Pending Anion Gap Pending BUN Pending Creatinine Pending Est GFR (CKD-EPI 2020) Pending Glucose Pending Calcium Pending Preliminary micro results at discharge 01/24/24 13:20 Blood Culture - Preliminary Blood NO GROWTH 24 HOURS 01/24/24 13:10 Blood Culture - Preliminary Blood NO GROWTH 24 HOURS PFSH All Active Problems (Updated 01/25/24 @ 12:40 by Patti Murphy APRN) Discharge planning issues (Acute) On deep vein thrombosis (DVT) prophylaxis (Acute) Hx of BKA (Acute) BPH (benign prostatic hyperplasia) (Chronic) CRYSTAL (acute kidney injury) (Acute) Urinary tract infection (Acute) Sepsis (Acute) Adrenal adenoma (Acute) Diverticula of colon (Acute) Atelectasis (Acute) Cholelithiasis and acute cholecystitis without obstruction (Acute) Acute cholecystitis (Acute) Medical History Retinal detachment History of kidney cancer Choledocholithiasis with acute cholecystitis with obstruction HTN (hypertension) Cannabis use, uncomplicated Daily consumption of alcohol Former smoker Enlarged prostate Surgical History History of eye surgery History of back surgery H/O endovascular stent graft for abdominal aortic aneurysm Social History Smoking/Tobacco Use Status: Former Tobacco Use Smoking risk assessment performed?: Yes Alcohol Intake: current Alcohol Intake frequency: 0-2 drinks per day Alcohol type: hard liquor Drug use: Daily Substance use type: marijuana Housing: house Do you feel safe at home: Yes Do you feel safe in your relationship?: Yes Time Spent with Patient Time Spent with Patient: >85 minutes Time was spent: preparing to see the patient(eg.review tests), obtaining and/or reviewing separately otained hiistory, ordering medications,tests, procedures, referring, communicating with other health ocular care aide, indepentently interpreting results, counseling the patient and care coordination
[2024-01-26 12:42] LABS: Absolute Monocyte Count 0.87 10^3/uL (0.1-0.8); Absolute Neutrophil Count 10.33 10^3/uL (1.2-6.7)
[2024-01-26 14:46] VITALS: BP 171/68; PULSE 61; RESP 16; TEMP 36.6; O2SAT 96
--- NOTE | 2024-01-26 15:03 | CMDISCH_ITS ---
Date of service: 01/26/24 Time of Service: 15:03 LACE Index Scoring Tool Questions: Length of Stay (in days): 2 Was the patient admitted via the E.D.?: Yes E.D. Visits: 0 Answers: Total Score: 5 Risk of Readmission: Low Risk Care Management Discharge Plan Reason for Hospitalization: UTI, CRYSTAL Discharge Plan: Joseph will return home with new orders for HH PT. He will be transported home via private vehicle by family. He will follow up with his PCP (Aurora Bowen, [employer] MACHINE OPERATOR at the [facility]) and discharge plan of care. He is happy to be going home. Patient/Family Education Needs: Review discharge instructions and limitations including ask me three. Services Needed at Discharge: Home Health Care Services (new HH PT) SDOH Health Related Social Needs: Health related social needs personal safety Health related social needs: problem related to primary support group(Z63.9) (recent of life long spouse )
--- NOTE | 2024-01-26 15:53 | PT.INTREAT ---
PT Notes Visit Reasons: UTI, CRYSTAL Inpatient Physical Therapy Treatment Note [facility] Date: 01/26/2024 PRECAUTIONS: Armenta catheter IV, standard precautions, fall risk SUBJECTIVE: Patient reports he is feeling better he states he is anxious to return home but has lots of questions regarding the Armenta catheter. Patient reports his four-wheel walker at home causes back pain so he does not use it however he does note that the height is very low. ( His daughter was instructed in the a.m. on how to adjust his four-wheel walker at home) OBJECTIVE: Pt seated in chair with prosthetic on. Pt agreeable to trial FWW as he does have a 4WW at home. ? PAIN:denies VITALS: Monitored by nursing with noted elevated BP of 156/64 Therapeutic Activities (15069): Direct one-on-one instruction in dynamic activities to improve functional performance. ? Sit-stand: Independent? Stand-sit: Independent ? Bed-Chair: SBA ? Chair-bed: SBA Provided skilled cues and instruction on performance and technique throughout. Gait Training (74255x5): Direct one-on-one instruction and skilled instruction in: [X] employing an assistive device [X] movement sequencing [X] Provided verbal cues for equipment management and technique [X] Patient education regarding pacing and breathing techniques to maximize activity tolerance? GAIT? Assistive Device: FWW ? Weight bearing: Full Assist: initially CGA then supervision ? Distance: 120 feet ? Deviation: decreased step length , wide STAN however narrower than without FWW, NO crossover steps ? ASSESSMENT: Patient demonstrated ability to ambulate with FWW despite initial resistance. He demonstrated improved stability including no crossover steps and standby assist for gait with FWW. PLAN: Continued strengthening gait training balance retraining until discharge to home TREATMENT CODE/TIME: 38900/1248?1303 DISCHARGE RECOMMENDATION: Home with home PT
--- NOTE | 2024-01-26 17:11 | PDOC.HHF2F ---
Home Health Referral Home Health Orders Clinical synopsis of why skilled professionals are needed: This 73 years old male patient with past medical history of enlarged prostate, hypertension on doxazosin, amiloride and losartan, Choledyl cholelithiasis with cholecystectomy, remote tobacco abuse, recent cannabis use, AAA repair, kusum neoplasm, left BKA presented on 01/24/2024 at [facility] with complaints of difficulty urinating. Workup in the ED showed significant leukocytosis, a lactate of 1.7 and a sodium of 133 BUN of 47 with a creatinine of 2.0 with a baseline around 1.4. UA was positive for UTI with leukocyte esterase, white blood cells, blood and hyaline casts. Renal ultrasound was negative for hydronephrosis but right nephrolithiasis was observed as well as an enlarged prostate. In the ED the patient was treated with IV ceftriaxone as well as IV fluids. Armenta catheter was also inserted in the ED. The hospitalist was consulted and the patient was admitted to the medical surgical floor for evaluation and management of UTI CRYSTAL and urology consult. During the stay the patient continued to be treated with IV ceftriaxone and IVF fluids. Losartan,amiloride, and chlorathalidone initially held for acute kidney injury.Creatinine went down - around baseline at 1.4. Urine culture grew pansensitive E. coli and blood cultures remained negative. The patient will be discharged home on cephalexin 500mg orally four times a day for [address] Onofre completed the urology consult with the following recommendations: Intermittent straight catheterization if the patient is still unable to void. As discussed, Finasteride was added to the patient's medicine regimen. Creatinine went down to around baseline at 1.4 The indwelling urinary catheter was discontinued and the patient was able to void. Bladder scan was delayed by approximately 2 hours resulted in a volume of 220 ml. The patient had most likely less than 200ml of post-void residual at the time of the micturition. Therefore the patient will not need to self- catheterize at home. If void for 12 hours despite adequate oral hydration or inability to void despite urges, the patient should contact his primary care practitioner. Physical recommendation from physical therapy is for home with home health for assessment of 4 wheel walker safety within home. The patient will need to follow-up with primary care practitioner from the [facility] within 7 days of discharge. Recommendation to follow up with urology from the [facility] system or here at [facility] with referral from the PCP for outpatient care clinic as per patient discussion with PCP. Discussed with Dr. Antoine. Medical diagnosis necessitation home health referral: Hx of L MARIBELA Physical recommendation from physical therapy is for home with home health for assessment of 4 wheel walker safety within home. Physical Therapist: Check all that apply Increase strength & endurance for safe mobility at home: Ordered Home safety evaluation and teaching/gait training including stair management (if applicable): Ordered Encounter Date and Reason: I certify that a FTF encounter for this patient was performed on January 26, 2024 and that such encounter was related to the primary reason the patient requires home health services. The encounter was conducted in the following manner: By me as the certifying physician, REMOTE MORTGAGE UNDERWRITER, PA or By an inpatient physician, REMOTE MORTGAGE UNDERWRITER or PA during an inpatient stay who communicated findings to me, Certification And Authentication I certify that I composed the above information based on my clinical judgment relating to this patient's medical condition and, if applicable, clinical findings communicated to me by the NPP or inpatient physician who performed the FTF encounter. Name of Provider that will be monitoring home health services: Primary care provider
[2024-01-26] MEDS: Finasteride 5 MG TAB PO (17:13)
[2024-01-26] MEDS: Cephalexin 500 MG CAP PO (17:13)
== END 2024-01-26 17:24 | disposition home health service (06) | DRG 683 ==
LOC: ER 15:21 → MS 16:04
PROVIDERS: Nurse Practitioner Acute Care; Admitting Provider Internal Medicine; Emergency Provider Physician Assistant; Visit Provider Internal Medicine
DX: N17.9 Acute kidney failure, unspecified; N39.0 Urinary tract infection, site not specified; N40.0 Benign prostatic hyperplasia without lower urinary tract symptoms; I10 Essential (primary) hypertension; Z89.512 Acquired absence of left leg below knee; Z79.899 Other long term (current) drug therapy; F12.90 Cannabis use, unspecified, uncomplicated; Z87.891 Personal history of nicotine dependence; K57.30 Diverticulosis of large intestine without perforation or abscess without bleeding; Z85.528 Personal history of other malignant neoplasm of kidney; F10.90 Alcohol use, unspecified, uncomplicated; B96.20 Unspecified Escherichia coli [E. coli] as the cause of diseases classified elsewhere; N20.0 Calculus of kidney
CPT/HCPCS: 00123; 36415; 51702; 51798; 76770; 80048; 80053; 84145; 87040; 87077; 96361; 96365; 96366; 97116; 97161; 99285; J1650; 81003; 81015; 83605; 83735; 85025; 87086; 87186; 99222; 99233; 99239; J0696

== ENCOUNTER 2024-09-19 17:37 | Outpatient (CLI) | payer OTHER, SELFPAY ==
--- NOTE | 2024-09-19 17:30 | RT.EKG_ITS ---
APPROVED REPORT Exam: Resting ECG Reason for Exam: chest discomfort Patient Location: O HR:44 bpm ECG Measurements Heart Rate 44 AXIS NH 188 P 38 QRSd 156 QRS 105 QT 459 T 108 QTc 393 Conclusion Sinus bradycardia...rate< 50 Right bundle branch block...QRSd>120, terminal axis(90,270) Artifact Baseline wander in lead(s) I,III,aVL
== END 2024-09-19 17:38 | disposition home or self-care (01) ==
LOC: DI.CM 17:38
PROVIDERS: Visit Provider Physician Assistant
DX: R07.89 Other chest pain (principal)
CPT/HCPCS: 93010

== ENCOUNTER 2024-09-19 18:01 | Emergency (ER) | payer OTHER, SELFPAY ==
[2024-09-19] VITALS (25 sets, daily range): BP systolic 179–213; BP diastolic 58–69; PULSE 38–59; RESP 9–24; TEMP 36.6; O2SAT 93–99
--- NOTE | 2024-09-19 18:15 | RT.EKG_ITS ---
APPROVED REPORT Exam: Resting ECG Reason for Exam: Bradycardia Patient Location: E HR:46 bpm ECG Measurements Heart Rate 46 AXIS DC 200 P 77 QRSd 153 QRS 71 QT 448 T 68 QTc 394 Conclusion Sinus bradycardia [address] [facility]
--- NOTE | 2024-09-19 18:30 | DI.RAD_ITS ---
Exam(s) XR KNEE RT 3V AP,LAT,EVELYN EXAM: XR KNEE RT 3V AP,LAT,EVELYN CLINICAL HISTORY: Knee pain. TECHNIQUE: 2D digital imaging was performed. COMPARISON: No exams were available for comparison FINDINGS: 3 views No evidence of fracture or joint effusion. No obvious degenerative changes. Mild chondrocalcinosis noted in the medial lateral compartments as seen on the frontal view. No osteophytes. Small calcifi c densities seen laterally in the region of the fibular collateral ligament. There is calcification posteriorly in the popliteal artery indicating atherosclerotic involvement and similar findings seen in the runoff vessels of the calf. IMPRESSION: No acute osseous findings in right knee. DATA REPOSITORY: RADIATION DOSE DELIVERED:
--- NOTE | 2024-09-19 18:40 | ED.GENADUL_ITS ---
Discharge Plan Disposition Patient Disposition: Home Condition: Stable Discharge Details Clinical Impression: Bradycardia, Leg pain, right Primary Care Provider: Unknown,Unknown ED Provider: Ada Hillman Home Meds and New Rx's Prescriptions: Continued albuterol sulfate 8.5 GM HFA aerosol inhaler 2 puff Inhalation Q4H PRN PRN ascorbic acid (vitamin C) [Vitamin C] 500 MG tablet 500 mg PO DAILY losartan 100 MG tablet 50 mg PO BID aspirin [Aspir-81] 81 MG tablet,delayed release (DR/EC) 81 mg PO QHS clopidogrel 75 mg tablet 75 mg PO DAILY finasteride 5 mg Tablet 5 mg PO QHS chlorthalidone 50 mg tablet 25 mg PO DAILY amiloride 5 mg tablet 5 mg PO DAILY doxazosin 8 mg tablet 8 mg PO .QHS latanoprost 0.005 % drops 1 drp ophthalmic (eye) DAILY lidocaine 5 % adhesive patch,medicated 1 patch topical DAILY PRN Held diltiazem HCl 300 MG capsule,extended release 24 hr 420 mg PO DAILY Hold Instructions: Resume on 09/21/24. Hold x 1 dose due to bradycardia No Action omega 0-aim-lkj-fish oil [Fish Oil] 1,200 (144-216) mg capsule 1 cap PO BID PreserVision AREDS-2 250-90-40-1 mg Capsule 1 tab PO BID Cacium Magnesium Zinc W/D3 1 tab PO BID Super Beta Prostate Advanced 1 tab PO QHS Discharge Instructions Instructions: Bradycardia, Leg Pain (ED) Additional Instructions: Please call the number on the top of the radiology form to schedule a ultrasound of your right lower extremity tomorrow. Please present to the emergency department for the ultrasound results. Please hold 1 dose of the diltiazem as your heart rate is very low at this time. Follow up with primary care provider in 3-5 days. Return to ED sooner if any worsening or concerns. Please take Tylenol or Ibuprofen with food every 4-6 hours as needed for pain and swelling. No evidence of heart attack today, no evidence of infection. Thank you for allowing us to care for you today. Referrals: Primary Care Provider [Outside] - 3 days HPI General Mode of arrival: ambulatory . Date/Time Provider Initiated Documentation: 09/19/24 18:14 . Limitations to Documentation: no limitations . Information obtained by: patient, RN notes reviewed and old records reviewed . HPI Narrative: 74-year-old male presents to the ER sent by urgent care with a chief complaint of bradycardia and right knee pain. Patient reports that the back of his right knee started bothering him yesterday. Denies any injury. No history of blood clot. No erythema noted. Denies any chest pain increased shortness of breath dizziness or lightheadedness. EKG does show right bundle branch block, he does take diltiazem and amiloride and losartan. Left BKA, sepsis Related Data Home Medications ?Medication ?Instructions ?Recorded ?Confirmed albuterol sulfate 90 mcg/actuation 2 puff inhalation Q4H PRN PRN 07/31/13 09/19/24 aerosol inhaler ascorbic acid (vitamin C) 500 mg 500 mg PO DAILY 07/31/13 09/19/24 tablet (Vitamin C) aspirin 81 mg tablet,delayed 81 mg PO QHS 07/31/13 09/19/24 release (Aspir-) diltiazem HCl 300 mg capsule,24 420 mg PO DAILY 07/31/13 09/19/24 hr,extended release losartan 100 mg tablet 50 mg PO BID 07/31/13 09/19/24 Cacium Magnesium Zinc W/D3 1 tab PO BID 12/25/20 09/19/24 Super Beta Prostate Advanced 1 tab PO QHS 12/25/20 09/19/24 amiloride 5 mg tablet 5 mg PO DAILY 12/25/20 09/19/24 chlorthalidone 50 mg tablet 25 mg PO DAILY 12/25/20 09/19/24 doxazosin 8 mg tablet 8 mg PO .QHS 12/25/20 09/19/24 vit C 250 mg-vit E 90 mg-zinc 40 1 tab PO BID 12/25/20 09/19/24 mg-copper 1 [id number]-ulzuvy-enpgbm capsule (PreserVision AREDS-2) latanoprost 0.005 % eye drops 1 drp ophthalmic (eye) DAILY 01/24/24 09/19/24 lidocaine 5 % topical patch 1 patch topical DAILY PRN 01/24/24 09/19/24 clopidogrel 75 mg tablet 75 mg PO DAILY 09/19/24 09/19/24 finasteride 5 mg tablet 5 mg PO QHS 09/19/24 09/19/24 omega 7-csb-oic-fish oil 1,200 mg 1 cap PO BID 09/19/24 09/19/24 (144 mg-216 mg) capsule (Fish Oil) Allergies Allergy/AdvReac Type Severity Reaction Status Date / Time No Known Allergies Allergy Verified 09/19/24 18:11 General Stated Complaint: Vascular BARBARA: 3 Exam Narrative Exam Narrative: Constitutional: Alert and oriented x3. Appears stated age. Normal body habitus. Head: Normocephalic, no trauma. Eyes: Pupils PERRL, Red reflex noted, EOM's intact. Eyelids symmetrical without lesions, discharge, or swelling. Chest: RRR, Normal S1, S2, distal pulses intact. Resp: Lungs clear to auscultation bilaterally, no wheezes, rales, or rhonchi. Abdomen: Soft, non-distended, Normoactive bowel sounds all 4 quads. Musculoskeletal: Left below the knee amputation, right lower extremity no erythema or swelling noted. Skin: No suspicious rashes or lesions. Capillary refill less than 2 sec. Neurologic: Cranial nerves II-XII intact. Alert and oriented x 3. Motor: No deficits noted. Sensory: Intact bilaterally all 4 extremities. Hematologic/Lymphatic: No ecchymosis, no lymphadenopathy. Course Vital Signs Vital signs: Vital Signs Temperature 36.6 C 09/19/24 18:05 Pulse 49 L 09/19/24 18:05 Respiratory Rate 20 09/19/24 18:05 Blood Pressure 189/68 H 09/19/24 18:05 Pulse Oximetry 94 09/19/24 18:05 Temperature 36.6 C 09/19/24 18:05 Pulse 49 L 09/19/24 18:05 Respiratory Rate 20 09/19/24 18:05 Blood Pressure 189/68 H 09/19/24 18:05 Blood Pressure Position Sitting 09/19/24 18:05 Pulse Oximetry 94 09/19/24 18:05 Oxygen Delivery Method Room Air 09/19/24 18:05 Oxygen Flow Rate 0 09/19/24 18:05 Pain Level 1 09/19/24 18:05 Medical Decision Making 74-year-old male presents to the ER sent by urgent care with a chief complaint of bradycardia and right knee pain. Patient reports that the back of his right knee started bothering him yesterday. Denies any injury. No history of blood clot. No erythema noted. Denies any chest pain increased shortness of breath dizziness or lightheadedness. EKG does show right bundle branch block, he does take diltiazem and amiloride and losartan. Left BKA, sepsis Workup ordered including CBC CMP serial troponins, x-ray and EKG. CBC shows no leukocytosis hemoglobin 12.9 hematocrit 38.9 which is at patient's baseline, D-dimer is elevated at 3352, BUN 28 creatinine 1.5 GFR is 48 BUN and creatinine is also at patient's baseline, glucose 134 initial troponin is 10 remainder of the CMP within normal limits. Knee x-ray shows some calcifica tions, no acute changes. Due to the elevated D-dimer we will order an outpatient ultrasound to rule out DVT to be done within the next 24 to 48 hours. Patient has remained bradycardic with a rate of 42 through 45 and hypertensive throughout stay. Patient is on high doses of diltiazem to include diltiazem 420 mg a day and amiloride I will tell patient to hold 1 day of the diltiazem to see if this improves his heart rate however patient is nonsymptomatic with this heart rate. He denies any dizziness lightheadedness or syncopal episodes. Patient discharged in hemodynamically stable condition. He is in the company of his family. Outpatient lower extremity ultrasound to rule out DVT ordered to be completed tomorrow as soon as possible. Instructed to follow-up in the ER. This text was generated using [employer] system, please disregard any oddities of phrase or misspellings. Medical Records Medical records reviewed: Yes I reviewed the patient's medical records. Imaging Data Radiologic Study: Imaging: X-Ray Radiologist's impression: Exam(s) XR KNEE RT 3V AP,LAT,EVELYN EXAM: XR KNEE RT 3V AP,LAT,EVELYN CLINICAL HISTORY: Knee pain. TECHNIQUE: 2D digital imaging was performed. COMPARISON: No exams were available for comparison FINDINGS: 3 views No evidence of fracture or joint effusion. No obvious degenerative changes. Mild chondrocalcinosis noted in the medial lateral compartments as seen on the frontal view. No osteophytes. Small calcific densities seen laterally in the region of the fibular collateral ligament. There is calcification posteriorly in the popliteal artery indicating atherosclerotic involvement and similar findings seen in the runoff vessels of the calf. IMPRESSION: No acute osseous findings in right knee. Lab Data Lab results reviewed: Yes I reviewed the patient's lab results. Labs: Laboratory Tests Range/Units 09/19/24 18:50 WBC (4.4-10.8) 10^3/uL 8.37 RBC (4.36-5.78) 10^6/uL 4.29 L Hgb (13.5-17.5) g/dL 12.9 L Hct (40.0-50.0) % 38.9 L MCV (80-95) fL 91 MCH (27.0-33.0) pg 30.1 MCHC (32.0-36.0) % 33.2 RDW (11.8-14.1) % 14.1 Plt Count (130-400) 10^3/uL 237 MPV (8.0-11.0) fL 8.8 Immature Gran % % 0.6 Neutrophils % % 67.2 Lymphocytes % % 14.0 Monocytes % % 10.3 Eosinophils % % 6.9 Basophils % % 1.0 Nucleated RBC % (0.0-0.3) % 0.0 Absolute Neutrophils (1.2-6.7) 10^3/uL 5.63 Absolute Lymphocytes (1.2-3.4) 10^3/uL 1.17 L Absolute Monocytes (0.1-0.8) 10^3/uL 0.86 H Absolute Eosinophils (0.0-0.7) 10^3/uL 0.58 Absolute Basophils (0.0-0.2) 10^3/uL 0.08 D-Dimer (<500) ng/mlFEU 3352 H Sodium (136-145) mmol/L 136 Potassium (3.5-5.1) mmol/L 3.7 Chloride (98-107) mmol/L 101 Carbon Dioxide (21.0-32.0) mmol/L 26.7 Anion Gap (3-11) mmol/L 8.3 BUN (7-18) mg/dL 28 H Creatinine (0.70-1.30) mg/dL 1.5 H Est GFR (CKD-EPI 2020) (mL/min/1.73m2) 48.25 Glucose (74-106) mg/dL 134 H Calcium (8.5-10.1) mg/dL 9.3 Total Bilirubin (0.2-1.0) mg/dL 0.3 AST (15-37) U/L 17 ALT (16-63) U/L 20 Alkaline Phosphatase (46-116) U/L 105 Troponin I (<or=76) ng/L 10 Total Protein (6.4-8.2) g/dL 6.4 Albumin (3.4-5.0) g/dL 3.4 Quality:SDOH Health Related Social Needs: No Data to Display PFSH All Active Problems (Updated 09/19/24 @ 20:29 by Ada Hillman NP) Leg pain, right (Acute) Bradycardia (Acute) Hx of BKA (Acute) BPH (benign prostatic hyperplasia) (Chronic) Sepsis (Acute) Adrenal adenoma (Acute) Diverticula of colon (Acute) Atelectasis (Acute) Cholelithiasis and acute cholecystitis without obstruction (Acute) Acute cholecystitis (Acute) Medical History Urinary tract infection Retinal detachment History of kidney cancer Choledocholithiasis with acute cholecystitis with obstruction Cannabis use, uncomplicated Daily consumption of alcohol Former smoker Enlarged prostate Surgical History History of eye surgery History of back surgery H/O endovascular stent graft for abdominal aortic aneurysm Social History Smoking/Tobacco Use Status: Former Tobacco Use Quit Date: 05/16/12 Smoking risk assessment performed?: Yes Alcohol Intake: former Drug use: Current Sobriety Substance use type: marijuana Housing: house Do you feel safe at home: Yes Do you feel safe in your relationship?: Yes
[2024-09-19 19:12] LABS: Abs Immature Grans 0.05 10^3/uL (0.0-0.06); Absolute Basophil Count 0.08 10^3/uL (0.0-0.2); Absolute Eosinophil Count 0.58 10^3/uL (0.0-0.7); Absolute Lymphocyte Count 1.17 10^3/uL (1.2-3.4); Absolute Monocyte Count 0.86 10^3/uL (0.1-0.8); Absolute Neutrophil Count 5.63 10^3/uL (1.2-6.7); Eosinophils % 6.9 %; HCT 38.9 % (40.0-50.0); HGB 12.9 g/dL (13.5-17.5); Immature Grans % 0.6 %; MCH 30.1 pg (27.0-33.0); MCHC 33.2 % (32.0-36.0); MCV 91 fL (80-95); MPV 8.8 fL (8.0-11.0); Monocytes % 10.3 %; Neutrophils % 67.2 %; Platelet Count 237 10^3/uL (130-400); RBC 4.29 10^6/uL (4.36-5.78); RDW 14.1 % (11.8-14.1); RDW-SD 47.1 fL; WBC 8.37 10^3/uL (4.4-10.8)
[2024-09-19 19:30] LABS: ALT 20 U/L (16-63); AST 17 U/L (15-37); Albumin 3.4 g/dL (3.4-5.0); Alkaline Phosphatase 105 U/L (46-116); Anion Gap 8.3 mmol/L (3-11); BUN 28 mg/dL (7-18); Bilirubin, Total 0.3 mg/dL (0.2-1.0); CO2 26.7 mmol/L (21.0-32.0); CREATININE 1.5 mg/dL (0.70-1.30); Calcium 9.3 mg/dL (8.5-10.1); Chloride 101 mmol/L (98-107); Estimated GFR 48.25 (mL/min/1.73m2); Glucose 134 mg/dL (74-106); Potassium 3.7 mmol/L (3.5-5.1); Sodium 136 mmol/L (136-145); Total Protein 6.4 g/dL (6.4-8.2); Troponin I 10 ng/L (<or=76)
[2024-09-19 19:39] LABS: D-Dimer 3352 ng/mlFEU (<500)
[2024-09-19 20:27] LABS: Troponin I 11 ng/L (<or=76)
== END 2024-09-19 20:50 | disposition home or self-care (01) ==
PROVIDERS: Emergency Provider Registered Nurse Emergency
DX: R00.1 Bradycardia, unspecified (principal); M25.561 Pain in right knee; I45.19 Other right bundle-branch block
CPT/HCPCS: 99285; 99284; 36415; 73562; 80053; 93005; 84484; 85025; 85379; 93010

== ENCOUNTER 2024-09-20 07:15 | Outpatient (CLI) | payer OTHER, SELFPAY ==
--- NOTE | 2024-09-20 | DI.US_ITS ---
Exam(s) US LOWER EXTREMITY VENOUS RT EXAM: US LOWER EXTREMITY VENOUS RT CLINICAL HISTORY: LEG PAIN, ? DVT TECHNIQUE: Grayscale, color, and doppler imaging of the deep venous system of the right lower extrem ity was performed. COMPARISON: US US RENAL from 01/24/2024 FINDINGS: There is no evidence of intraluminal thrombus and there is normal compression and augmentation demons trated within the common femoral vein, femoral vein, and popliteal vein. In the ipsilateral calf the interrogated veins also exhibit normal compression/ augmentation properti es. The ipsilateral saphenofemoral junction is patent. OTHER: Incidentally noted is a small fluid collection medial to the knee measuring 15 x 7 by 6 mm. T his may represent a para-articular ganglion cyst, degenerative meniscal cyst, or other cystic finding . IMPRESSION: 1. No evidence of DVT in the right lower extremity. 2. There is a 15 x 7 x 6 mm fluid collection medial to the knee which may represent a para-articular ganglia on cyst or degenerative meniscal cyst or otherwise. This can be further studied with MRI of the knee. Report called by myself to ER provider 09/20/2024 at 11:44 a.m. DATA REPOSITORY:
== END 2024-09-20 07:35 ==
PROVIDERS: Visit Provider Registered Nurse Emergency
DX: M79.604 Pain in right leg (principal)
CPT/HCPCS: 93971

== ENCOUNTER 2024-09-20 09:41 | Emergency (ER) | payer MEDICARE, OTHER, SELFPAY ==
[2024-09-20 09:55] VITALS: BP 197/85; PULSE 68; RESP 16; TEMP 36.4; O2SAT 95
== END 2024-09-20 11:44 | disposition left against medical advice (07) ==
LOC: ER 10:10
DX: Z53.20 Procedure and treatment not carried out because of patient's decision for unspecified reasons (principal)

== ENCOUNTER 2025-02-19 16:39 | Emergency (ER) | payer OTHER, SELFPAY ==
[2025-02-19 16:43] VITALS: BP 161/68; PULSE 60; RESP 18; TEMP 37.4; O2SAT 95
--- NOTE | 2025-02-19 16:57 | W.ED.GENAD ---
Discharge Plan Disposition Patient Disposition: Home Condition: Stable Discharge Details Clinical Impression: Hydrocele, Spermatocele, Bladder fistula, Acute UTI Primary Care Provider: [facility],[place] ED Provider: Miko Arias Home Meds and New Rx's Prescriptions: New levofloxacin 750 mg tablet 750 mg PO DAILY Qty: 5 0RF Continued albuterol sulfate 8.5 GM HFA aerosol inhaler 2 puff Inhalation Q4H PRN PRN diltiazem HCl 300 MG capsule,extended release 24 hr 420 mg PO DAILY ascorbic acid (vitamin C) [Vitamin C] 500 MG tablet 500 mg PO DAILY losartan 100 MG tablet 50 mg PO BID aspirin [Aspir-81] 81 MG tablet,delayed release (DR/EC) 81 mg PO QHS clopidogrel 75 mg tablet 75 mg PO DAILY omega 9-bbu-jqm-fish oil [Fish Oil] 1,200 (144-216) mg capsule 1 cap PO BID finasteride 5 mg Tablet 5 mg PO QHS chlorthalidone 50 mg tablet 25 mg PO DAILY amiloride 5 mg tablet 5 mg PO BID doxazosin 8 mg tablet 8 mg PO .QHS PreserVision AREDS-2 250-90-40-1 mg Capsule 1 tab PO BID Cacium Magnesium Zinc W/D3 1 tab PO BID Super Beta Prostate Advanced 1 tab PO QHS latanoprost 0.005 % drops 1 drp ophthalmic (eye) DAILY lidocaine 5 % adhesive patch,medicated 1 patch topical DAILY PRN Discharge Instructions Additional Instructions: Your CAT scan showed you have a hydrocele and a spermatocele in your testicle. I placed you on our follow-up list to see urology. It also feels that you likely have a fistula between your diverticula in your colon and your bladder. I am referring you to general surgery for management of this. You should follow-up with your primary care provider for continued monitoring of your kidney function. If you feel more ill or have new symptoms such as high fevers return to the emergency department for reevaluation. You can take 1000 mg of acetaminophen every 6 hours as needed, do not exceed over 3000 mg in a 24-hour period. Avoid medications such as ibuprofen and Naprosyn HPI General Mode of arrival: ambulatory. Date/Time Provider Initiated Documentation: 02/19/25 16:40. Limitations to Documentation: no limitations. Information obtained by: patient. History of Present Illness 74 year old M presents to the emergency department with the chief complaint of right sided testicle pain, described as moderate, Quality is described as aching, and is localized to the genitals. Patient started experiencing this day(s) (1) and it has been constant. No relieving factors improve symptom(s), No exacerbating factors reported . Patient notes denies fever/chills. Patient did receive the following treatments prior to arrival, none Related Data Home Medications ?Medication ?Instructions ?Recorded ?Confirmed albuterol sulfate 90 mcg/actuation 2 puff inhalation Q4H PRN PRN 07/31/13 02/19/25 aerosol inhaler ascorbic acid (vitamin C) 500 mg 500 mg PO DAILY 07/31/13 02/19/25 tablet (Vitamin C) aspirin 81 mg tablet,delayed 81 mg PO QHS 07/31/13 02/19/25 release (Aspir-) diltiazem HCl 300 mg capsule,24 420 mg PO DAILY 07/31/13 02/19/25 hr,extended release losartan 100 mg tablet 50 mg PO BID 07/31/13 02/19/25 Cacium Magnesium Zinc W/D3 1 tab PO BID 12/25/20 02/19/25 Super Beta Prostate Advanced 1 tab PO QHS 12/25/20 02/19/25 amiloride 5 mg tablet 5 mg PO BID 12/25/20 02/19/25 chlorthalidone 50 mg tablet 25 mg PO DAILY 12/25/20 02/19/25 doxazosin 8 mg tablet 8 mg PO .QHS 12/25/20 02/19/25 vit C 250 mg-vit E 90 mg-zinc 40 1 tab PO BID 12/25/20 02/19/25 mg-copper 1 gf-uiweyk-sjwruk capsule (PreserVision AREDS-2) latanoprost 0.005 % eye drops 1 drp ophthalmic (eye) DAILY 01/24/24 02/19/25 lidocaine 5 % topical patch 1 patch topical DAILY PRN 01/24/24 02/19/25 clopidogrel 75 mg tablet 75 mg PO DAILY 09/19/24 02/19/25 finasteride 5 mg tablet 5 mg PO QHS 09/19/24 02/19/25 omega 4-jwr-rjk-fish oil 1,200 mg 1 cap PO BID 09/19/24 02/19/25 (144 mg-216 mg) capsule (Fish Oil) levofloxacin 750 mg tablet 750 mg PO DAILY #5 tabs 02/19/25 Previous Rx's ?Medication ?Instructions ?Recorded levofloxacin 750 mg tablet 750 mg PO DAILY #5 tabs 02/19/25 Allergies Allergy/AdvReac Type Severity Reaction Status Date / Time No Known Allergies Allergy Verified 02/19/25 16:45 General Stated Complaint: Male Reproductive Problem BARBARA: 3 Review of Systems All systems reviewed & are unremarkable except as noted in HPI and below Constitutional Constitutional: Denies chills, Denies fever(s) and Denies weakness Cardiovascular Cardiovascular: Denies chest pain and Denies dyspnea Respiratory Respiratory: Denies cough and Denies dyspnea Gastrointestinal Gastrointestinal: Denies abdominal pain and Denies vomiting Genitourinary Genitourinary: Reports testicular pain Neurologic Neurologic: Denies weakness Exam Const General: no acute distress Orientation: alert HENMT Head: normal to inspection Ears: external ears normal General nose exam: external nose normal Mouth: moist mucous membranes Eyes General: appearance normal, both eyes and all related structures Neck Neck: normal visual inspection Resp Effort & Inspection: normal respiratory effort and able to speak in complete sentences Cardio Rate: regular rate Skin General skin exam: no rashes or lesions noted Neuro General: patient alert and patient oriented x3 Extrem General: normal to inspection Psych Mental Status: mental status grossly normal Course Vital Signs Vital signs: Vital Signs Temperature 37.4 C 02/19/25 16:43 Pulse 60 02/19/25 16:43 Respiratory Rate 18 02/19/25 16:43 Blood Pressure 161/68 H 02/19/25 16:43 Pulse Oximetry 95 02/19/25 16:43 Temperature 37.4 C 02/19/25 16:43 Temperature Source Tympanic 02/19/25 16:43 Pulse 60 02/19/25 16:43 Respiratory Rate 18 02/19/25 16:43 Blood Pressure 161/68 H 02/19/25 16:43 Pulse Oximetry 95 02/19/25 16:43 Medical Decision Making 74-year-old male with a history of hypertension comes in with 1 day of right sided testicle pain. He says he never had pain like this before and is also swollen. He says he has no urinary symptoms. The right testicle is swollen and tender compared to the left. He has no left testicle tenderness. There is no warmth or erythema. Concern for hydrocele versus orchitis versus less likely abscess,has intact cremasteric reflex so unlikely torsion will check a CBC and CMP and UA and see if the metallurgical technician would be available to come in to do an ultrasound as it is after hours for the u/s techs No metallurgical technician is available so I proceeded with a CT when his white count came back at over 20. Testicle show hydrocele and spermatocele so given his age I also doubt torsion at this time. There is no evidence of abscess. They do note that he has evidence of a possible fistula between his bladder and diverticula. Awaiting UA. He has no fevers or other signs of sepsis. On review of his prior CBCs his white count seems to be chronically elevated. He has CRYSTAL on CKD. awaiting UA. I did also discuss with Dr. Hwang with general surgery who advised they can manage this fistula as an outpatient UA with signs of uti and he has had some burning so will initiate oral antibiotics. Patient did request a refill of his albuterol inhaler which was provided. Return precautions given Differential Diagnosis Differential Diagnosis: hydrocele, abscess PFSH All Active Problems (Updated 02/19/25 @ 19:57 by Miko Arias MD) Acute UTI (Acute) Bladder fistula (Acute) Spermatocele (Acute) Hydrocele (Acute) Hx of BKA (Acute) BPH (benign prostatic hyperplasia) (Chronic) Sepsis (Acute) Adrenal adenoma (Acute) Diverticula of colon (Acute) Atelectasis (Acute) Cholelithiasis and acute cholecystitis without obstruction (Acute) Acute cholecystitis (Acute) Medical History Urinary tract infection Retinal detachment History of kidney cancer Choledocholithiasis with acute cholecystitis with obstruction Cannabis use, uncomplicated Daily consumption of alcohol Former smoker Enlarged prostate Surgical History History of eye surgery History of back surgery H/O endovascular stent graft for abdominal aortic aneurysm Social History Smoking/Tobacco Use Status: Former Tobacco Use Quit Date: 05/16/12 Smoking risk assessment performed?: Yes Alcohol Intake: former Drug use: Occasionally Substance use type: marijuana Housing: house Do you feel safe at home: Yes Do you feel safe in your relationship?: Yes
[2025-02-19] MEDS: HYDROmorphone 2 MG/ML SYR 0.5 MG IVP ×2 (17:10→19:32)
[2025-02-19 17:19] LABS: Abs Immature Grans 0.43 10^3/uL (0.0-0.06); HCT 34.6 % (40.0-50.0); HGB 11.4 g/dL (13.5-17.5); Immature Grans % 1.9 %; MCH 30.1 pg (27.0-33.0); MCHC 32.9 % (32.0-36.0); MCV 91 fL (80-95); MPV 8.4 fL (8.0-11.0); Platelet Count 369 10^3/uL (130-400); RBC 3.79 10^6/uL (4.36-5.78); RDW 14.8 % (11.8-14.1); RDW-SD 49.6 fL; WBC 22.10 10^3/uL (4.4-10.8)
[2025-02-19 17:35] LABS: ALT 78 U/L (16-63); AST 26 U/L (15-37); Albumin 2.9 g/dL (3.4-5.0); Alkaline Phosphatase 110 U/L (46-116); Anion Gap 10.6 mmol/L (3-11); BUN 42 mg/dL (7-18); Bilirubin, Total 0.5 mg/dL (0.2-1.0); CO2 23.4 mmol/L (21.0-32.0); Calcium 9.3 mg/dL (8.5-10.1); Chloride 99 mmol/L (98-107); Estimated GFR 30.47 (mL/min/1.73m2); Glucose 127 mg/dL (74-106); Magnesium 2.4 mg/dL (1.8-2.4); Potassium 4.9 mmol/L (3.5-5.1); Sodium 133 mmol/L (136-145); Total Protein 6.8 g/dL (6.4-8.2)
--- NOTE | 2025-02-19 17:45 | DI.CT_ITS ---
Exam(s) CT ABDOMEN PELVIS WO EXAM: CT ABDOMEN PELVIS WO CLINICAL HISTORY: lower abd pain, right scrotal swelling, wbc 20. TECHNIQUE: Imaging Protocol: Axial computed tomography images with coronal and sagittal reformatted images were created and reviewed CONTRAST MATERIAL: Intravenous: none Oral: None COMPARISON: CT CT ABDOMEN PELVIS WO from 12/25/2020 FINDINGS: VISUALIZED LUNG BASES: No nodules nor pleural effusions evident. ABDOMEN: There is no ascites. LIVER: There are no obvious focal hepatic lesions evident of this noninfused study. GALLBLADDER/BILIARY: The gallbladder is now surgically absent. The CBD diameter is dilated measuring 1.2 cm. There are no radiopaque calculi in the lower CBD. No pancreatic head mass. PANCREAS: No evidence of pancreatic mass nor dilatation of the pancreatic duct. SPLEEN: Spleen is not enlarged. No obvious intrasplenic lesions. ADRENALS: Hypodense nodule in left adrenal gland is unchanged from 2020 and consistent with benign adenoma. The opposite-right adrenal gland remains unremarkable. KIDNEYS:Left kidney mildly atrophic unchanged. Area of hypodensity in the lateral cortex of the left kidney is noted measuring 1.5 x 1.5 cm, not previously present. Difficult to assess without IV contrast. There is also a similar size finding in the medial cortex of the right kidney also difficult to assess without IV contrast but probably a cyst. There is a punctate nonobstructive 1 millimeter calculus in the right kidney noted in the lateral cortex. Vascular calcifications are also noted in both kidneys. There is no hydronephrosis. No hydroureter.. 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 Patency and endoleaks cannot be assessed without IV contrast. However, the [place] aortic sac exhibits a maximum diameter of 5 cm which is not increased from 2020. There is no obvious collection around the iliac anastomoses of the endo stent limbs. LYMPH NODES: There is no retroperitoneal nor paraaortic adenopathy. ABDOMINAL WALL: There is an anterior abdominal wall right para umbilical hernia which was not previously present. This contains fat but no and no bowel loops. Hernia sac is 2.5 cm wide and 2 cm craniocaudal and 1.5 cm AP. Wide neck. No bowel loops nor fluid within the hernia sac. GI: There is no evidence of bowel obstruction, free air, nor abscess. OTHER: There is a partially calcified nodule intimately associated with the inferior aspect of the left hemidiaphragm measuring 2.3 cm AP by 1.5 cm wide by 1.3 cm craniocaudal. This has increased slightly in size and calcific content when compared to the CT scan of 2020. This is above the kidney and medial to the spleen PELVIS: LYMPH NODES: There is no intrapelvic nor inguinal adenopathy. GI: Appendix not seen and may be surgically absent.Again noted is extensive sigmoid diverticulosis but no evidence of obvious acute diverticulitis. There also uncomplicated diverticuli throughout the left colon at and distal to the splenic flexure. URINARY BLADDER: There is gas-air within the urinary bladder, not previously present. Unlike the previous study there does not appear to be a 3 year consistent fat border between the inferior wall of the sigmoid and the urinary bladder. Therefore this implies that there may have been prior episode di verticulitis with fistulous communication to the bladder. REPRODUCTIVE: Enlarged and calcified prostate gland. Lowermost images include the scrotum and there are bilateral hydroceles, right larger than left. There is also a right-sided varicocele OSSEOUS: No fractures nor significant osseous lesions. There is degenerative anterolisthesis L4 upon L5. Multilevel degenerative disc disease. Also mild retrolisthesis L5 on S1. Multilevel chronic degenerative disc disease. IMPRESSION: 1. Compared to the CT scan of December 2020 there has been interval cholecystectomy. The CBD diameter is 12 mm. This may be related to post cholecystectomy status and patient's advanced age. There is no radiopaque calculus in the CBD and no pancreatic head mass evident. 2. There is anterior abdominal wall right para umbilical fat only containing hernia which measures 2.5 cm wide by 2 cm craniocaudal. No bowel loops nor fluid within the hernia sac. 3. There is extensive sigmoid diverticulosis. Although there is no evidence of obvious acute diverticulitis, there does appear to be soft tissue density the interposed between the inferior wall of the sigmoid and the superior wall of the urinary bladder which was not previously present on CT scan of 2020 and there is also now gas in the urinary bladder lumen. This finding may be related to a recent bout of diverticulitis which resulted in fistulous communication to the urinary bladder. Urine testing recommended. 4. Bilateral hydroceles. Right-sided varicocele. 5. Stable appearance of aortic EVAR. [place] aortic sac 5 cm, unchanged 6. Slightly increased in size and calcium content of a nodule intimately associated with the inferior aspect of the left hemidiaphragm, medial to the spleen and above and separate from the superior pole of the kidney. Probably calcified lymph node. Report called by myself to ER physician 02/19/2025 at 6:35 p.m. RADIATION DOSE DELIVERED: 545.72mGy.cm Total DLP DATA REPOSITORY: All CT scans at this facility are submitted to the National Radiology Data Registry (NRDR) Dose Index Registry (DIR) with the [employer] (A[employer]). RADIATION OPTIMIZATION: All CT scans at this facility use at least one of these dose optimization techniques: automated exposure control; mA and/or kV adjustment per patient size (includes targeted exams where dose is matched to clinical indication); or iterative reconstruction.
[2025-02-19] MEDS: Albuterol HFA 8 GM 60 PUFF INH IH (19:16)
[2025-02-19 19:30] LABS: Glucose Negative (Negative)
[2025-02-19 19:38] LABS: C & S Indicated? Yes; WBC >50 HPF (0-5)
[2025-02-19] MEDS: levoFLOXacin 500 MG, levoFLOXacin 250 MG 750 MG PO (19:51)
[2025-02-19] MEDS: MORPHine IR 15 MG TAB, 4 TABS/BTL PO (20:04)
[2025-02-19 20:08] VITALS: BP 158/70; PULSE 62; RESP 18; O2SAT 98
--- NOTE | 2025-02-23 07:36 | NUR.NOTE ---
Access chart to determine antibiotic on discharge for urine culture. Result given to provider. Nursing Note:
--- NOTE | 2025-02-23 07:59 | W.ED.FU ---
Date of service: 02/23/25 Time of Service: 07:59 Follow Up Plan: Pansensitive E. coli growing in urine culture for which patient received appropriate fluoroquinolone.
== END 2025-02-19 20:09 | disposition home or self-care (01) ==
PROVIDERS: Emergency Provider Emergency Medicine
DX: N43.3 Hydrocele, unspecified (principal); N43.41 Spermatocele of epididymis, single; N32.2 Vesical fistula, not elsewhere classified; N39.0 Urinary tract infection, site not specified
CPT/HCPCS: 99284 ×2; 36415; 96374; 96376; 80053; 87040; 87077; 74176; 81003; 81015; 83735; 85025; 87086; 87186; J1171